=== PATIENT | female | born 1970 | race Caucasian/White ===

== ENCOUNTER 2018-04-14 05:49 | Outpatient (CLI) | payer MEDICAID ==
[~2018-04-14] VITALS: Ht 157.5 cm; Wt 58.3 kg
[~2018-04-14 05:49] MED LIST: AMIT100T2 PO; AMIT50TA3; AMIT50TA3 PO; CLON0.5T3 PO; CYCL10TA9 PO; GABA600T2 PO; GBPN400C PO; HYDR-3714; HYDR1TAB8 OP; NAPR-243 PO; OXYC-272 PO; OXYC-465 PO; OXYC1TAB87 PO; SRTR100T PO
[2018-04-14] MEDS ORDERED: AMIT75TA2 PO (12:36)
[2018-04-14] MEDS ORDERED: ACET-2267 PO (12:36)
[2018-04-14] MEDS ORDERED: RT-ALBUINH IH (12:37)
== END 2018-04-14 12:43 ==
LOC: PREOP 05:49
PROVIDERS: ATTEND Surgery
DX: Z01.818 Encounter for other preprocedural examination (principal); R19.7 Diarrhea, unspecified; Z86.010 Personal history of colon polyps

== ENCOUNTER 2018-04-18 20:23 | Emergency (ER) | payer MEDICAID, OTHER ==
[~2018-04-18] VITALS: Ht 152.4 cm; Wt 53.5 kg
[~2018-04-18 20:23] MED LIST changes: +ACET-2267 PO; +AMIT75TA2 PO; +RT-ALBUINH IH
--- NOTE | 2018-04-18 20:58 | ED EENT ---
History of Present Illness General Stated Complaint: THROAT PAIN/BACK PAIN/FEVER Source: patient Exam Limitations: no limitations History of Present Illness Date Seen by Provider: April 18, 2018 Time Seen by Provider: 20:40 Initial Comments PT ARRIVES VIA POV--SON AND BOTH BEING SEEN IN ER ALSO C/O SORE THROAT, COUGH, CONGESTION FOR 3 DAYS DENIES FEVER HAS HAD NON-PRODUCTIVE COUGH NO CHEST PAIN OR SHORTNESS OF BREATH C/O BILATERAL EAR PAIN CHILD BEGAN HAVING SAME SYMPTOMS TODAY. IS BEING SEEN FOR UNRELATED PROBLEM PT HAS NOT TAKEN ANYTHING FOR SYMPTOMS PT SMOKES 1 PPD LMP 6 MONTHS AGO. NO CONTROL. HISTORY OF OVARIAN CYSTS PCP: [facility] Allergies and Home Medications Allergies Coded Allergies: bupropion (Verified Allergy, Mild, H/A, 04/14/18) prazosin (Verified Allergy, Mild, SYNCOPE, 04/14/18) sertraline (Verified Allergy, Mild, H/A, 04/14/18) Home Medications Acetaminophen 500 Mg Tablet, 1,000 MG PO TID, (Reported) Albuterol Sulfate 1 Puff Puff, 2 PUFF IH Q4H PRN for SHORTNESS OF BREATH, ( Reported) 1 PUFF = 90 MCG Amitriptyline HCl 75 Mg Tablet, 75 MG PO HS, (Reported) Amoxicillin/Potassium Clav 1 Each Tablet, 1 EACH PO BID Prescribed by: NY DUONG on 04/18/182124 Fluticasone Propionate 9.9 Ml Gilbert.susp, 2 SPRAYS NS BID Prescribed by: NY DUONG on 04/18/182124 Gabapentin 600 Mg Tablet, 600 MG PO TID PRN for PAIN, (Reported) Loratadine/Pseudoephedrine 1 Each Tab.er.12h, 1 EACH PO BID Prescribed by: NY DUONG on 04/18/182124 Methylprednisolone 4 Mg Tab.ds.pk, 4 MG PO UD Prescribed by: NY DUONG on 04/18/182124 Patient Home Medication List Home Medication List Reviewed: Yes Review of Systems Constitutional: no symptoms reported Eyes: No Symptoms Reported Ears: See HPI Nose: see HPI, congestion Mouth: no symptoms reported Throat: see HPI, pain; denies hoarse, denies muffled, denies difficulty with fluids Respiratory: see HPI; No short of breath, No wheezing Cardiovascular: no symptoms reported Gastrointestinal: no symptoms reported : No (LMP 6 MONTHS AGO. PT STATES SHE IS GOING THROUGH MENOPAUSE) Musculoskeletal: no symptoms reported Skin: no symptoms reported Neurological: No Symptoms Reported Hematologic/Lymphatic: No Symptoms Reported Immunological/Allergic: no symptoms reported Past Hwfktdq-Jlczkx-Lpcbhq Hx Patient Social History Alcohol Use: Occasionally Uses (VERY HEAVY AT TIMES, HISTORY OF ABUSE/REGULAR USE IN THE PAST) Alcohol Beverage of Choice: Beer Recreational Drug Use: Yes (THC, + IV CRACK COCAINE, OPIOIDS) Drug of Choice: THC, + IV CRACK COCAINE, OPIODS Smoking Status: Current Everyday Smoker (1 PPD) Type Used: Cigarettes (1 PPD) Recent Foreign Travel: No Contact w/Someone Who Travel: No Recent Hopitalizations: No Immunizations Up To Date Tetanus Booster (TDap): Less than 5yrs Date of Influenza Vaccine: Dec 09, 2013 Seasonal Allergies Seasonal Allergies: Yes Past Medical History Surgeries: Yes Appendectomy Respiratory: Yes Asthma Cardiac: Yes Irregular Heartbeat, Palpitations Neurological: Yes Neuropathy Reproductive Disorders: Yes Female Reproductive Disorders: Ovarian Cyst Sexually Transmitted Disease: No HIV/AIDS: No Gastrointestinal: Yes (HEPATITIS C--S/P TREATMENT) Chronic Diarrhea, Hepatitis, Polyps Musculoskeletal: Yes (CARPAL TUNNEL SYMPTOMS) Arthritis, Chronic Back Pain Endocrine: No HEENT: Yes (POOR DENTITION, NASAL FRACTURE) Loss of Vision: Bilateral Hearing Impairment: Denies Cancer: No Psychosocial: Yes (MULTIPLE VISITS FOR PSYCH ISSUES/ALTERED MENTAL STATUS/DRUG AND ALCOHOL RELATED ISSUES ; POLYSUBSTANCE ABUSE) Anxiety, PTSD, Depression Integumentary: No Blood Disorders: No Adverse Reaction/Blood Tranf: No (N/A) Family Medical History Cancer 03 FATHER (LUNG) Family history: Cardiovascular disease 03 MOTHER (X4 STENTS) Physical Exam Vital Signs Vital Signs - First Documented 04/18/18 20:31 Temp 97.3 Pulse 75 Resp 18 B/P (MAP) 119/83 (95) Pulse Ox 96 General Appearance: WD/WN, no apparent distress, other (DOES NOT APPEAR ILL. REEKS OF CIGARETTES) Eyes: bilateral eye normal inspection, bilateral eye PERRL, bilateral eye EOMI Ears: bilateral ear other (TM'S SLIGHTLY INJECTED BILATERALLY) Nose: sinus tenderness (MILD MAXILLARY SINUS TENDERNESS. 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, no motor/sensory deficits, alert, normal mood/affect, oriented x 3 Skin: normal color, warm/dry; No rash Progress/Results/Core Measures Results/Orders Lab Results Laboratory Tests Test 04/18/18 20:56 Range/Units Group A Streptococcus Screen NEGATIVE NEGATIVE My Orders Orders - NY DUONG DO Rapid Strep A Screen (04/18/18 20:52) Amoxicillin/Clavulanate Tablet (Augmenti (04/18/18 21:30) Vital Signs/I&O 04/18/18 20:31 Temp 97.3 Pulse 75 Resp 18 B/P (MAP) 119/83 (95) Pulse Ox 96 Progress Progress Note : Progress Note NO COUGH NOTED DURING ER STAY Departure Impression Primary Impression: Sinusitis Additional Impressions: Pharyngitis Otitis media Disposition: 01 HOME, SELF-CARE Condition: Stable Departure-Patient Inst. Referrals: ABBY BENAVIDES MD (PCP/Family) Primary Care Physician Patient Instructions: Ear Infections (Otitis Media) (DC), Sinusitis, Adult (DC) , Sore Throat, Adult (DC) Add. Discharge Instructions: TYLENOL AND MOTRIN NEEDED FOR PAIN OR FEVER LOTS OF CLEAR LIQUIDS FOLLOW UP WITH [facility] IN 3-4 DAYS IF NO BETTER Scripts Methylprednisolone (Medrol) 4 Mg Tab.ds.pk 4 MG PO UD, #1 PKG Prov: NY DUONG DO 04/18/18 Fluticasone Propionate (Flonase Allergy Relief) 9.9 Ml Gilbert.susp 2 SPRAYS NS BID, #1 SPRAY Prov: NY DUONG DO 04/18/18 Loratadine/Pseudoephedrine (Claritin-D 12 Hour Tablet) 1 Each Tab.er.12h 1 EACH PO BID, #20 TAB Prov: NY DUONG DO 04/18/18 Amoxicillin/Potassium Clav (Augmentin 875-125 Tablet) 1 Each Tablet 1 EACH PO BID for INFECTION, #20 TAB Prov: NY DUONG DO 04/18/18 NY DUONG DO April 18, 2018 20:58
[2018-04-18] MEDS ORDERED: LORA1TAB59 PO (21:25)
[2018-04-18] MEDS ORDERED: FLUT9.9S NS (21:25)
[2018-04-18] MEDS ORDERED: METH4TAB PO (21:25)
[2018-04-18] MEDS ORDERED: AMOX-358 PO (21:25)
[2018-04-18] MEDS ORDERED: AUGMENTIN 875 MG TAB (AMOXICILLIN/CLAVULANATE) PO SCH (21:30)
[2018-04-18 21:52] VITALS: BP 119/83
--- OUTSIDE RECORDS SUMMARY | 2018-04-19 17:05 | XMS REPORT ---
Author Author JEFF Doshi [facility] Address [address] [place] [address] Care Team Providers Care Customer Quality Specialist Name Role Phone JEFF Doshi Unavailable PROBLEMS Type Condition ICD9-CM Code [id number] Code Onset Dates Condition Status SNOMED Code Problem Reactive depression F32.9 Active 77174285 Problem Affective disorder F39 Active 91186421 Problem Anxiety state, unspecified F41.1 Active 321246137 Problem Scoliosis M41.9 Active 161056359 Problem Arthritis M19.90 Active 9681253 Problem Diarrhea, unspecified type R19.7 Active 06504826 Problem Lumbar radiculopathy M54.16 Active 721828156 Problem Post traumatic stress disorder F43.10 Active 62875783 Problem Amphetamine dependence, 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 908589203 Problem Allergy, initial encounter T78.40XA Active 150579346 Problem Depressive disorder F32.9 Active 88734894 Problem 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 Active 003929544 ALLERGIES Substance Reaction Event Type Date Status Zoloft diarrhea Drug Allergy Nov, Active Lomotil syncope Drug Allergy Nov, Active Chantix Unknown Drug Allergy Nov, Active Buspirone 15 Mg Tablet headaches Non Drug Allergy Nov, Active Meloxicam 15 Mg Tablet bloody emesis Non Drug Allergy Nov, Active SOCIAL HISTORY No smoking Hx information available PLAN OF CARE Activity Details Follow Up 4 Weeks Reason: VITAL SIGNS Height 60 in 2016-12-22 Weight 113.0 lbs 2016-12-22 Heart Rate 64 bpm 2016-12-22 Respiratory Rate 18 2016-12-22 BMI 22.07 kg/m2 2016-12-22 Blood pressure systolic 106 mmHg 2016-12-22 Blood pressure diastolic 71 mmHg 2016-12-22 MEDICATIONS Medication Instructions Dosage Frequency Start Date End Date Duration Status Prazosin HCl 1 MG Orally Once a day 1 capsule at bedtime 24h Nov, 30 days Active Neurontin 600 MG 1 Tablet 3 times per day for pain 8h 30 Active amitriptyline 50 mg by oral route Once a day take 1 tablet (100 mg) by oral route once daily at bedtime 24h Oct, Active RESULTS No Results PROCEDURES Procedure Date Ordered Related Diagnosis Body Site Office Visit, Est Pt., Level 4 Dec 22, 2016 IMMUNIZATIONS No Known Immunizations
--- OUTSIDE RECORDS SUMMARY | 2018-04-19 17:05 | XMS REPORT ---
Author Author JEFF Doshi Organization [facility] Address [address] [place] [address] Care Team Providers Care Cco & President Name Role Phone JEFF Doshi Unavailable PROBLEMS Type Condition ICD9-CM Code [id number] Code Onset Dates Condition Status SNOMED Code Problem Reactive depression F32.9 Active 68361806 Problem Affective disorder F39 Active 85857637 Problem Anxiety state, unspecified F41.1 Active 659967224 Problem Scoliosis M41.9 Active 017444038 Problem Arthritis M19.90 Active 9707040 Problem Diarrhea, unspecified type R19.7 Active 74202726 Problem Lumbar radiculopathy M54.16 Active 236153353 Problem Post traumatic stress disorder F43.10 Active 95665600 Problem Amphetamine dependence, 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 331981809 Problem Allergy, initial encounter T78.40XA Active 482951933 Problem Depressive disorder F32.9 Active 58009296 Problem 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 Active 863907631 ALLERGIES No Information SOCIAL HISTORY Never Assessed PLAN OF CARE VITAL SIGNS MEDICATIONS Medication Instructions Dosage Frequency Start Date End Date Duration Status Prazosin HCl 1 MG Orally Once a day 1 capsule at bedtime 24h Nov, 30 days Active RESULTS No Results PROCEDURES No Known procedures IMMUNIZATIONS No Known Immunizations MEDICAL (GENERAL) HISTORY Type Description Date Medical History scoliosis Medical History RA Medical History CA breast Medical History Alcoholism Medical History Cannabis Abuse Medical History Illicit drug use Medical History Anxiety Medical History PTSD Medical History Depression Medical History Hep C Medical History Chronic Back Pain Medical History Arthritis Surgical History appendectomy 1986 Hospitalization History ketoacidosis 2013 Hospitalization History surgeries Hospitalization History childbirth Hospitalization History [facility] Psychosis left AMA 11/16/2016 Hospitalization History [facility] Psychosis approved for transfer to [facility] left AMA 11/17/2016 Hospitalization History inpatient treatment for substance use
--- OUTSIDE RECORDS SUMMARY | 2018-04-19 17:05 | XMS REPORT ---
Author Author HELADIO PEACOCK Organization [employer] Address Unknown Phone Unavailable Care Team Providers Care Bank Officer Name Role Phone HELADIO PEACOCK CP Unavailable Allergies No Known Allergies Problems Problem Type Condition Code Onset Dates Condition Status Problem Reactive depression F32.9 Active Problem Diarrhea, unspecified type R19.7 Active Problem Anxiety state, unspecified F41.1 Active Assessment Anxiety state, unspecified F41.1 Active Assessment Depressive disorder, not elsewhere classified F32.9 Active Problem Scoliosis M41.9 Active Problem Arthritis M19.90 Active Medications No Known Medications Procedures Procedure Coding System Code Date Psychotherapy, patient &/family, 30 minutes, established patient CPT-4 18934 Sep 19, 2016 Results No Known Results Summary Purpose [employer] Submission
--- OUTSIDE RECORDS SUMMARY | 2018-04-19 17:05 | XMS REPORT | Continuity of Care Document ---
Author Author [employer] Organization [facility] Address Unknown Phone Unavailable Care Team Providers Care Unix Manager Name Role Phone [employer] Unavailable Unavailable Problems Medications Allergies, Adverse Reactions, Alerts Immunizations Results Vital Signs Encounters Procedures Plan of Care Social History Assessment and Plan Family History Advance Directives Functional Status
--- OUTSIDE RECORDS SUMMARY | 2018-04-19 17:05 | XMS REPORT ---
Author Author ABBY BENAVIDES [facility] [employer] Address Unknown Phone Unavailable Care Team Providers Care Reproductive Healthcare Assistant Name Role Phone ABBY BENAVIDES CP Unavailable Allergies No Known Allergies Problems Problem Type Condition Code Onset Dates Condition Status Problem Special screening examination, human papillomavirus [HPV] V73.81 Active Problem Scoliosis (and kyphoscoliosis), 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.30 Active Problem Periapical abscess without sinus 522.5 Active Problem Arthritis M19.90 Active Problem Unspecified episodic mood disorder 296.90 Active Problem Generalized anxiety disorder 300.02 Active Problem Posttraumatic stress disorder 309.81 Active Problem Encounter for long-term (current) use of other medications V58.69 Active Problem Scoliosis M41.9 Active Problem Unspecified backache 724.5 Active Problem Unspecified viral hepatitis C without hepatic coma 070.70 Active Problem Anxiety state, unspecified 300.00 Active Problem Unspecified arthropathy, site unspecified 716.90 Active Problem Screening for malignant neoplasm of the cervix V76.2 Active Problem Unspecified breast screening V76.10 Active Problem Nasal bones, closed fracture 802.0 Active Problem Painful respiration 786.52 Active Problem Counseling on substance use and abuse V65.42 Active Problem Excessive or frequent menstruation 626.2 Active Problem Unspecified contraceptive management V25.9 Active Problem Dysmenorrhea 625.3 Active Problem Routine gynecological examination V72.31 Active Problem Screening examination for venereal disease V74.5 Active Medications Medication Code System Code Instructions Start Date End Date Status Dosage Naproxen [facility] [address]-65 500 MG Twice a day Dec 07, 2014 take 1 tablet by Oral route 2 times per day with food take w food Neurontin [facility] [address]-19 600 MG Three times a day Dec 07, 2014 1 Tablet 3 times per day for pain Zoloft [facility] [address]-68 50 mg Orally Once a day Dec 07, 2014 1.5 Tablet by Oral route 1 time per day Results No Known Results Summary Purpose [employer] Submission
--- OUTSIDE RECORDS SUMMARY | 2018-04-19 17:05 | XMS REPORT ---
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 437536195 Problem Allergy, initial encounter T78.40XA Active 940084529 Problem Depressive disorder, not elsewhere classified F32.9 Active 93835732 Problem Posttraumatic stress disorder F43.10 Active 02110414 Problem Depressive disorder F32.9 Active 59528329 Problem 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 Active 939151838 Problem Lumbar radiculopathy M54.16 Active 683237218 Problem Post traumatic stress disorder F43.10 Active 01874161 Problem Scoliosis M41.9 Active 754382782 Problem Diarrhea, unspecified type R19.7 Active 78582736 Problem Reactive depression F32.9 Active 85979391 Problem Arthritis M19.90 Active 9656581 Problem Anxiety state, unspecified F41.1 Active 540052911 ALLERGIES No Information ENCOUNTERS Encounter Location Date Diagnosis [facility] [address] [id number] [address] Feb, [facility] [id number] [place] [address] 81176- 7411 Feb, [facility] [id number] [place] [address] 83659- 6885 Feb, [facility] [id number] [place] [address] 47108- 6958 Jan, [facility] [address] [address] 4078 Jan, Posttraumatic stress disorder F43.10 and Depressive disorder , not elsewhere classified F32.9 [facility] [id number] [place] [address] 98071- 2580 Nov, Dental abscess K04.7 ; Arthritis M19.90 and Depressive disorder, not elsewhere classified F32.9 [facility] [id number] [place] [address] 55211- 7904 18 Oct, 2017 Post traumatic stress disorder F43.10 ; Amphetamine dependence, 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 ; 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 and Depressive disorder F32.9 [facility] [id number] [place] [address] 95343- 0170 04 Oct, 2017 Post traumatic stress disorder F43.10 [facility] IN [facility] [id number] [place] [address] 94566 -3118 30 Sep, 2017 Acute non-recurrent pansinusitis J01.40 [address] 39[address]- 4092 Sep, Scoliosis M41.9 [facility] [address] 91264- 8771 Aug, Posttraumatic stress disorder F43.10 and Depressive disorder , not elsewhere classified F32.9 [facility] [id number] [place] [address] 75538- 0074 Aug, Scoliosis M41.9 [facility] [id number] [place] [address] 42939 -2723 Jul, [facility] [address] 79013- 7843 Jul, Scoliosis M41.9 [facility] [address] 66256- 3131 Jun, Scoliosis M41.9 ; Lumbar radiculopathy M54.16 and Acute nasopharyngitis J00 [facility] [address] 35383- 8635 Jun, Scoliosis M41.9 [address] [id number] [place] [address] 28902- 3793 Jun, Reactive depression F32.9 [address] [id number] [place] [address] 65483- 4068 May, Post traumatic stress disorder F43.10 ; Amphetamine dependence, 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 ; 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 and Depressive disorder F32.9 [place] [id number] [place] [address] 99310- 4414 May, Anxiety state, unspecified F41.1 [place] [id number] [place] [address] 34698- 0933 Apr, [address] [place] [address] 94975- 2683 Apr, Anxiety state, unspecified F41.1 [address] [place] [address] 83158- 9155 March, Arthritis M19.90 ; Scoliosis M41.9 and Allergy, initial encounter T78.40XA [place] [id number] [place] [address] 28310- 7642 March, Anxiety state, unspecified F41.1 [address] [place] [id number] [place] [address] 65662- 5175 Jan, Anxiety state, unspecified F41.1 [place] [id number] [place] [address] 57321- 7435 Dec, Anxiety state, unspecified F41.1 [facility] [id number] [place] [address] 02425 -3381 Dec, Sore throat J02.9 ; Other viral agents as the cause of diseases classified elsewhere B97.89 and Acute upper respiratory infection, unspecified J06.9 [place] [id number] [place] [address] 38376- 4236 Nov, Anxiety state, unspecified F41.1 [address] [place] [id number] [place] [address] 65532- 5194 Nov, Reactive depression F32.9 [address] [address] 55362- 6184 Nov, Affective disorder F39 [facility] [address] 57623- 4720 Oct, [address] [address] 38796- 3798 Oct, Other psychoactive substance use, unspecified with intoxication with delirium F19.921 [address] [place] [address] 79197- 2502 Sep, Upper respiratory tract infection, unspecified type J06.9 and Scoliosis M41.9 [address] [address] 73327- 1907 Aug, Anxiety state, unspecified F41.1 and Depressive disorder, not elsewhere classified F32.9 [address] [place] [address] 56588- 3383 Jul, [address] [address] 72743- 5768 Jun, Scoliosis M41.9 ; Reactive depression F32.9 and Diarrhea, unspecified type R19.7 [place] [id number] [place] [address] 46800- 5950 May, [address] [address] 32586- 4183 Nov, Sinusitis J32.9 ; Scoliosis M41.9 ; Arthritis M19.90 and Nipple lesion N64.9 [facility] [id number] [place] [address] 56484- 5218 Feb, [address] [place] [address] 78528- 7801 Feb, [facility] [place] [facility] [address] [id number] [place] [address]- 2158 Jan, [facility] [place] [facility] [address] [id number] [place] [address]- 2869 Jan, [facility] [place] [facility] [address] [id number] [place] [address]- 5873 Jan, [facility] [place] [facility] [address] [id number] [place] [address]- 0353 Jan, [facility] [place] [facility] [address] [id number] [place] [address]- 0146 Dec, [facility] [place] [facility] [address] [id number] [place] [address]- 0324 Dec, 2014 [facility] [place] [facility] [address] [id number] [place] [address]- 5808 Dec, [facility] [place] [facility] [address] [id number] [address]- 0268 Dec, [facility] [place] [facility] [address] [id number] [place] [address]- 9688 Dec, [facility] [place] [facility] [address] [facility] [id number] [address]- 5179 Dec, [facility] [address] [id number] [id number] Dec, [facility] [place] [facility] [address] [facility] [id number] [address]- 9103 Dec, [facility] [place] [facility] [address] [id number] [address]- 4377 Nov, [facility] [place] [facility] [address] [id number] [place] [address]- 4122 Nov, [facility] [place] [facility] [address] [facility] [id number] [place] 2773 Nov, [facility] [place] [facility] [address] [id number] [place] [address]- 5336 Nov, [facility] [address] [id number] [place] 0633 Nov, [facility] [place] [facility] [address] [id number] [place] [address]- 4867 Nov, [facility] [address] [id number] [place] [address]- 2963 Nov, [facility] [address] [id number] [id number] Nov, [facility] [address] [id number] [place] 6196 Nov, [facility] [place] [facility] [address] [id number] [place] [address]- 3979 Nov, [facility] [address] [id number] [place] 3854 Nov, [facility] [place] [facility] [address] [id number] [place] [address]- 2544 Oct, [facility] [place] [facility] [address] [id number] [place] [address]- 9435 30 Oct, 2014 [facility] [place] [facility] [address] [id number] [place] [address]- 7885 Oct, [facility] [place] [facility] [address] [id number] [place] [address]- 3043 Oct, [facility] [place] [facility] [address] [id number] [place] [address]- 2085 18 Oct, 2014 [facility] [place] [facility] [address] [id number] [place] [address]- 6142 18 Oct, 2014 [facility] [place] [facility] [address] [id number] [place] [address]- 8178 Oct, [facility] [place] [facility] [address] [id number] [place] [address]- 8318 17 Oct, 2014 [facility] [place] [facility] [address] [id number] [place] [address]- 9948 Oct, [facility] [address] [id number] [place] [address]- 0699 Oct, [facility] [address] [id number] [place] [address]- 6366 Oct, [facility] [address] [id number] [place] [address]- 4154 Oct, [facility] [place] [facility] [address] [id number] [place] [address]- 4901 Oct, [facility] [address] [id number] [place] [address]- 0992 Oct, [facility] [address] [id number] [place] [address]- 3298 Sep, [facility] [address] [id number] [place] [address]- 5902 Sep, [facility] [address] [id number] [id number] Sep, [facility] [address] [id number] [place] [address]- 0705 Sep, [facility] [address] [id number] [place] [address]- 4394 Sep, [facility] [address] [id number] [place] [address]- 1531 Sep, [facility] [place] [facility] [address] [id number] [place] [address]- 9078 Sep, [facility] [place] [facility] [address] [id number] [place] [address]- 7853 Sep, [facility] [place] [facility] [address] [id number] [place] [address]- 8556 Sep, [facility] [place] [facility] [address] [id number] [place] [address]- 8486 Sep, [facility] [place] [facility] [address] [id number] [place] [address]- 7032 Sep, [facility] [place] [facility] [address] [id number] [place] [address]- 0358 Aug, [facility] [place] [facility] [address] [id number] [place] [address]- 2585 Aug, [facility] [place] [facility] [address] [id number] [place] [address]- 5113 Aug, [facility] [place] [facility] [address] [id number] [place] [address]- 8030 Aug, [facility] [place] [facility] [address] [id number] [place] [address]- 3683 20 Aug, 2014 [facility] [place] [facility] [address] [id number] [place] [address]- 8310 15 Aug, 2014 [facility] [place] [facility] [address] [id number] [place] [address]- 1227 15 Aug, 2014 [facility] [place] [facility] [address] [id number] [place] [address]- 3255 15 Aug, 2014 [facility] [place] [facility] [address] [id number] [place] [address]- 3440 15 Aug, 2014 [facility] [place] [facility] [address] [id number] [place] [address]- 9181 13 Aug, 2014 [facility] [place] [facility] [address] [id number] [place] [address]- 4909 13 Aug, 2014 [facility] [place] [facility] [address] [id number] [place] [address]- 3725 13 Aug, 2014 [facility] [place] [facility] [address] [id number] [place] [address]- 6733 13 Aug, 2014 [facility] [place] [facility] [address] [id number] [place] [address]- 0959 2014 [facility] [place] [facility] [address] [id number] [place] [address]- 6986 Jul, [facility] [address] [id number] [place] [id number] Jul, [facility] [place] [facility] [address] [id number] [place] [address]- 0946 Jul, [facility] [place] [facility] [address] [id number] [place] [address]- 4223 Jun, [facility] [place] [facility] [address] [id number] [place] [address]- 2739 Jun, [facility] [place] [facility] [address] [id number] [place] [address]- 9128 Jun, [facility] [place] [facility] [address] [id number] [place] [address]- 5332 Jun, [facility] [place] [facility] [address] [id number] [place] [address]- 3438 Jun, [facility] [place] [facility] [address] [id number] [place] [address]- 2622 Jun, [facility] [address] [facility] [id number] [place] [id number] May, [facility] [place] [facility] [address] [id number] [place] [address]- 1587 May, [facility] [place] [facility] [address] [id number] [place] [address]- 7124 May, [facility] [place] [facility] [address] [id number] [place] [address]- 1036 May, [facility] [place] [facility] [address] [id number] [place] [address]- 6140 May, [facility] [place] [facility] [address] [id number] [place] [address]- 6946 May, [facility] [address] [id number] [place] [id number] May, [facility] [place] [facility] [address] [id number] [place] [address]- 3897 May, [facility] [place] [facility] [address] [id number] [place] [address]- 0435 Apr, [facility] [place] [facility] [address] [id number] [place] [address]- 2446 Apr, [facility] [address] [facility] [id number] [place] [id number] Apr, [facility] [place] [facility] [address] [id number] [place] [address]- 6521 Apr, [facility] [place] [facility] [address] [id number] [place] [address]- 0961 Apr, [facility] [place] [facility] [address] [id number] [place] 6605 Apr, [facility] [place] [facility] [address] [facility] [id number] [place] [address]- 2818 Apr, [facility] [place] [facility] [address] [facility] [id number] [place] [address]- 7171 Apr, [facility] [place] [facility] [address] [id number] [place] [address]- 5847 Apr, [facility] [address] [facility] [id number] [id number] March, [facility] [place] [facility] [address] [id number] [place] [address]- 4566 March, [facility] [place] [facility] [address] [id number] [address]- 9726 March, [facility] [place] [facility] [address] [id number] [place] [address]- 7136 March, [facility] [address] [facility] [id number] [place] [id number] March, [facility] [place] [facility] [address] [id number] [place] [address] 2546 March, [facility] [place] [facility] [address] [facility] [id number] [place] [address]- 2866 Feb, [facility] [address] [id number] [place] [address]- 9626 Feb, [facility] [place] [facility] [address] [id number] [place] [address]- 5516 Feb, [facility] [address] [id number] [place] [address]- 3086 Feb, [facility] [place] [facility] [address] [id number] [place] [address]- 6576 Feb, [facility] [address] [id number] [place] [id number] Feb, [facility] [place] [facility] [address] [id number] [place] [address]- 9976 Feb, [facility] [address] [id number] [place] [address]- 7736 Jan, [facility] [place] [facility] [address] [id number] [place] [address]- 0336 Jan, [facility] [place] [facility] [address] [id number] [place] [address]- 2406 Jan, [facility] [place] [facility] [address] [id number] [place] [address]- 9276 Jan, [facility] [place] [facility] [address] [id number] [place] [address]- 2546 Jan, [facility] [place] [facility] [address] [id number] [place] [address]- 2546 Jan, [facility] [address] [id number] [place] [id number] Jan, [facility] [place] [facility] [address] [id number] [place] [address]- 2546 Jan, [facility] [place] [facility] [address] [id number] [place] [address]- 2546 Jan, [facility] [place] [facility] [address] [id number] [place] [address]- 1520 Jan, [facility] [place] [facility] [address] [id number] [place] [address]- 0884 Dec, [facility] [place] [facility] [address] [id number] [place] [address]- 4382 Dec, [facility] [address] [id number] [place] [id number] Dec, [facility] [place] [facility] [address] [id number] [place] [address]- 6804 Dec, [facility] [place] [facility] [address] [id number] [place] [address]- 0623 Dec, [facility] [place] [facility] [address] [id number] [place] [address]- 8609 Dec, [facility] [place] [facility] [address] [id number] [place] [address]- 2778 Dec, [facility] [place] [facility] [address] [id number] [place] [address]- 4367 Dec, [facility] [place] [facility] [address] [id number] [place] [address]- 8074 Dec, [facility] [place] [facility] [address] [id number] [place] [address]- 3937 Dec, [facility] [place] [facility] [address] [id number] [place] [address]- 6710 Nov, [facility] [place] [facility] [address] [id number] [place] [address]- 3839 Nov, [facility] [place] [facility] [address] [id number] [place] [address]- 5025 Nov, [facility] [place] [facility] [address] [id number] [place] [address]- 2692 Nov, [facility] [place] [facility] [address] [id number] [place] [address]- 7475 Nov, [facility] [place] [facility] [address] [id number] [address]- 2996 Nov, [facility] [address] [id number] [address]- 4518 Nov, [facility] [address] [id number] [address]- 6059 Nov, [facility] [address] [id number] [id number] Nov, [facility] [id number] [address]- 6109 Nov, [facility] [address] [address]- 1828 Oct, [facility] [address] [address] Oct, [facility] [id number] [address] Sep, [facility] [id number] [address] Sep, [facility] [id number] [address] Sep, [facility] [id number] [address] Sep, [facility] [id number] [address] Aug, [facility] [id number] [address] Aug, [facility] [id number] [address] Jul, IMMUNIZATIONS No Known Immunizations SOCIAL HISTORY Never Assessed REASON FOR VISIT Gabapentin refill PLAN OF CARE VITAL SIGNS MEDICATIONS Medication Instructions Dosage Frequency Start Date End Date Duration Status Neurontin 600 MG Orally Three times a day 1 tablet 8h 30 days Active RESULTS No Results PROCEDURES No Known procedures INSTRUCTIONS MEDICATIONS ADMINISTERED No Known Medications MEDICAL (GENERAL) HISTORY Type Description Date Medical History scoliosis Medical History RA Medical History CA breast Medical History Alcoholism Medical History Cannabis Abuse Medical History Illicit drug use Medical History Anxiety Medical History PTSD Medical History Depression Medical History Hep C Medical History Chronic Back Pain Medical History Arthritis Surgical History appendectomy 1985 Hospitalization History ketoacidosis 2013 Hospitalization History surgeries Hospitalization History childbirth Hospitalization History [facility] Psychosis left AMA 11/16/2016 Hospitalization History [facility] Psychosis approved for transfer to [place] unit left AMA 11/17/2016 Hospitalization History inpatient treatment for substance use
--- OUTSIDE RECORDS SUMMARY | 2018-04-19 17:05 | XMS REPORT ---
Author ABBY Lema [facility] e[employer] Address Unknown Phone Unavailable Care Team Providers Care Php Developer Name Role Phone ABYB BENAVIDES CP Unavailable Allergies, Adverse Reactions, Alerts Substance Reaction Event Type Chantix Info Not Available Drug Allergy Buspirone 15 Mg Tablet Info Not Available Non Drug Allergy Meloxicam 15 Mg Tablet bloody emesis Non Drug Allergy Problems Problem Type Condition Code Onset Dates Condition Status Assessment Nipple lesion N64.9 Active Assessment Arthritis M19.90 Active Problem Dysmenorrhea 625.3 Active Assessment Scoliosis M41.9 Active Problem Screening examination for venereal disease V74.5 Active Assessment Sinusitis J32.9 Active Problem Special screening examination, human papillomavirus [HPV] V73.81 Active Problem Scoliosis (and kyphoscoliosis), 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.30 Active Problem Periapical abscess without sinus 522.5 Active Problem Arthritis M19.90 Active Problem Generalized anxiety disorder 300.02 Active Problem Unspecified episodic mood disorder 296.90 Active Problem Posttraumatic stress disorder 309.81 Active Problem Scoliosis M41.9 Active Problem Encounter for long-term (current) use of other medications V58.69 Active Problem Unspecified backache 724.5 Active Problem [...] Problem Unspecified contraceptive management V25.9 Active Problem Routine gynecological examination V72.31 Active Medications Medication Code System Code Instructions Start Date End Date Status Dosage Percocet [facility] [address]-82 5-325 mg Nov 15, 2014 take 1 tablet by Oral route as needed every 8 hours PRN Naproxen [facility] [address]-47 500 MG Twice a day Dec 07, 2014 take 1 tablet by Oral route 2 times per day with food take w food amitriptyline NDC 0 100 mg Nov 15, 2014 take 1 tablet (100 mg) by oral route once daily at bedtime Zoloft [facility] [address]-77 50 MG Orally Once a day Dec 07, 2014 1.5 Tablet by Oral route 1 time per day Neurontin [facility] [address]-88 600 MG Three times a day Dec 07, 2014 1 Tablet 3 times per day for pain Amoxicillin [facility] [address]-19 500 MG Orally 3 times a day Dec 24, 2015 Dec 31, 2015 1 Procedures Procedure Coding System Code Date Office Visit, Est Pt., Level 5 CPT-4 72507 Dec 24, 2015 Vital Signs Date/Time: Dec 24, 2015 Temperature 98.8 F Weight 101.7 lbs Height 60 in BMI 19.86 Index Blood Pressure Diastolic 80 mmHg Blood Pressure Systolic 118 mmHg Cardiac Monitoring Heart Rate 88 bpm Results No Known Results Summary Purpose eClinicalWorks Submission
--- OUTSIDE RECORDS SUMMARY | 2018-04-19 17:05 | XMS REPORT ---
Author Author MEGAN PRICE Organization [facility] Address [address] [place] [address] Care Team Providers Care Travel Specialist Name Role Phone MEGAN PRICE Unavailable PROBLEMS Type Condition ICD9-CM Code WVC20-TL Code Onset Dates Condition Status SNOMED Code Problem Reactive depression F32.9 Active 19192542 Problem Affective disorder F39 Active 63320217 Problem Anxiety state, unspecified F41.1 Active 895482065 Problem Scoliosis M41.9 Active 283078300 Problem Arthritis M19.90 Active 7312047 Problem Diarrhea, unspecified type R19.7 Active 07387582 Problem Lumbar radiculopathy M54.16 Active 839908741 Problem Post traumatic stress disorder F43.10 Active 05130537 Problem Amphetamine dependence, 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 265728311 Problem Allergy, initial encounter T78.40XA Active 894126847 Problem Depressive disorder F32.9 Active 94341483 Problem 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 Active 825665363 ALLERGIES Substance Reaction Event Type Date Status Zoloft diarrhea Drug Allergy Dec, Active Lomotil syncope Drug Allergy Dec, Active Chantix Unknown Drug Allergy Dec, Active Buspirone 15 Mg Tablet headaches Non Drug Allergy Dec, Active Meloxicam 15 Mg Tablet bloody emesis Non Drug Allergy Dec, Active SOCIAL HISTORY Never Assessed PLAN OF CARE Activity Details Follow Up prn Reason: VITAL SIGNS Height 60 in 2017-01-13 Weight 113.4 lbs 2017-01-13 Temperature 98.0 degrees Fahrenheit 2017-01-13 Heart Rate 68 bpm 2017-01-13 Respiratory Rate 20 2017-01-13 BMI 22.14 kg/m2 2017-01-13 Blood pressure systolic 110 mmHg 2017-01-13 Blood pressure diastolic 60 mmHg 2017-01-13 MEDICATIONS Unknown Medications RESULTS Name Result Date Reference Range STREP A (IN HOUSE) 2017-01-13 STREP A negative Control + Lot # [id number] Exp date aug 17 PROCEDURES Procedure Date Ordered Result Body Site STREP A ASSAY W/OPTIC Jan 13, 2017 IMMUNIZATIONS No Known Immunizations MEDICAL (GENERAL) HISTORY [...] History childbirth Hospitalization History [facility] left [facility] 11/16/2016 Hospitalization History [facility] approved for transfer to [place] unit left AMA 11/17/2016 Hospitalization History inpatient treatment for substance use
--- OUTSIDE RECORDS SUMMARY | 2018-04-19 17:06 | XMS REPORT ---
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 952175296 Problem Allergy, initial encounter T78.40XA Active 597531328 Problem Depressive disorder, not elsewhere classified F32.9 Active 35551494 Problem Posttraumatic stress disorder F43.10 Active 78156215 Problem Depressive disorder F32.9 Active 87043931 Problem 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 Active 652274257 Problem Lumbar radiculopathy M54.16 Active 099844047 Problem Post traumatic stress disorder F43.10 Active 03448797 Problem Scoliosis M41.9 Active 363278197 Problem Diarrhea, unspecified type R19.7 Active 43055683 Problem Reactive depression F32.9 Active 74630778 Problem Arthritis M19.90 Active 7992318 Problem Anxiety state, unspecified F41.1 Active 859754823 ALLERGIES Substance Reaction Event Type Date Status Zoloft diarrhea Drug Allergy May, Active Lomotil syncope Drug Allergy May, Active Chantix Unknown Drug Allergy May, Active Buspirone 15 Mg Tablet headaches Non Drug Allergy May, Active Meloxicam 15 Mg Tablet bloody emesis Non Drug Allergy May, Active ENCOUNTERS Encounter Location Date Diagnosis [facility] [address] [facility] [id number], [place] [address] Feb, [facility] [address] [facility]NOTE [facility]] [id number], [place] [address] 8[address] Feb, [facility] [address] [facility]NOTE [facility]] [id number], [place] [address] Feb, [facility] [id number] [place] [address] 17421- 5377 Jan, [facility] [id number] [place] [address] 31789- 4820 Jan, Posttraumatic stress disorder F43.10 and Depressive disorder , not elsewhere classified F32.9 [facility] [id number] [place] [address] 54069- 4161 Nov, Dental abscess K04.7 ; Arthritis M19.90 and Depressive disorder, not elsewhere classified F32.9 [facility] [id number] [place] [address] 28154- 6684 Oct, Post traumatic stress disorder F43.10 ; Amphetamine dependence, 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 ; 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 and Depressive disorder F32.9 [facility] [id number] [place] [address] 46098- 5660 Oct, Post traumatic stress disorder F43.10 [facility] [id number] [place] [address] 89013 -7417 Sep, Acute non-recurrent pansinusitis J01.40 [place] [id number] [place] [address] 71124- 9656 Sep, Scoliosis M41.9 [facility] [id number] [place] [address] 28335- 4835 Aug, Posttraumatic stress disorder F43.10 and Depressive disorder , not elsewhere classified F32.9 [facility] [id number] [place] [address] 46495- 3285 Aug, Scoliosis M41.9 [facility] [id number] [place] [address] 92692 -7588 Jul, [facility] [id number] [place] [address] 36189- 1358 Jul, Scoliosis M41.9 [facility] [address] [address]- 7898 Jun, Scoliosis M41.9 ; Lumbar radiculopathy M54.16 and Acute nasopharyngitis J00 [place] [id number] [place] [address] 10101- 4845 Jun, Scoliosis M41.9 [place] [id number] [place] [address] 39518- 5008 Jun, Reactive depression F32.9 [place] [address] [address]- 4355 May, Post traumatic stress disorder F43.10 ; Amphetamine dependence, 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 ; 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 and Depressive disorder F32.9 [place] [id number] [place] [address] 16263- 6154 May, Anxiety state, unspecified F41.1 [place] [id number] [place] [address] 65767- 1766 Apr, [place] [address] 33499- 4186 Apr, Anxiety state, unspecified F41.1 [place] [id number] [place] [address] 01906- 5865 March, Arthritis M19.90 ; Scoliosis M41.9 and Allergy, initial encounter T78.40XA [place] [id number] [place] [address] 12621- 0864 March, Anxiety state, unspecified F41.1 [place] [id number] [place] [address] 45284- 7262 Jan, Anxiety state, unspecified F41.1 [place] [id number] [place] [address] 22771- 8327 Dec, Anxiety state, unspecified F41.1 [facility] [id number] [place] [address] 97211 -1808 Dec, Sore throat J02.9 ; Other viral agents as the cause of diseases classified elsewhere B97.89 and Acute upper respiratory infection, unspecified J06.9 [place] [id number] [place] [address] 07284- 7727 Nov, Anxiety state, unspecified F41.[address] 7[address]10- 0923 Nov, Reactive depression F32.9 [place] [address] 08678- 6725 Nov, Affective disorder F39 [address] 02973- 0835 Oct, [address] 84376- 5726 Oct, Other psychoactive substance use, unspecified with intoxication with delirium F19.921 [place] [address] 64013- 1483 Sep, Upper respiratory tract infection, unspecified type J06.9 and Scoliosis M41.9 [address] [address] [id number] [place] [address] 50693- 3841 Aug, Anxiety state, unspecified F41.1 and Depressive disorder, not elsewhere classified F32.[address] 19889- 6996 Jul, [place] [id number] [place] [address] 02621- 7519 Jun, Scoliosis M41.9 ; Reactive depression F32.9 and Diarrhea, unspecified type R19.[address] [address]43- 1929 May, [address] 31866- 7348 Nov, Sinusitis J32.9 ; Scoliosis M41.9 ; Arthritis M19.90 and Nipple lesion N64.9 [facility] [address] [facility]NOTE [facility]] [id number] [place] [address]- 0326 14 Feb, 2015 [facility] [address] [id number] [address] 1106 13 Feb, 2015 [facility] [address], [place] [address]- 6995 Jan, [facility] [address] [facility]NOTE 3] [id number], [place] [address]- 6911 Jan, [facility] [address] [facility]NOTE 3] [id number], [place] [address]- 9437 Jan, [facility] [address] [id number], [place] [address]- 6541 Jan, [facility] [address], [place] [address]- 5592 Dec, [facility] [address], [place] [address]- 3674 Dec, [facility] [address], [place] [address]- 6097 Dec, [facility] [address]65[address], [place] [address]- 3742 Dec, [facility] [address], [place] [address]- 7911 Dec, [facility] [place] [facility] [address] [id number], [place] [address]- 0588 Dec, [facility] [address] [id number] [address] Dec, [facility] [place] [facility] [address], [place] [address]- 6052 Dec, [facility] [place] [facility] [address] [id number], [place] [address]- 6779 Nov, [facility] [place] [facility] [address] [id number] [place] [address]- 4016 Nov, [facility] [address] [id number] [place] [address]- 9506 Nov, [facility] [address] [id number] [place] [address]- 6126 Nov, [facility] [address] [id number] [place] [address]- 9796 Nov, [facility] [address] [id number] [place] [address]- 5466 Nov, [facility] [address] [id number] [place] [address]- 9036 Nov, [facility] [address] [id number] [place] [id number] Nov, [facility] [address] [id number] [place] [address]- 3184 Nov, [facility] [address] [id number] [place] [address]- 2022 Nov, [facility] [address] [id number] [place] [address]- 0750 Nov, [facility] [address] [id number] [place] [address]- 3847 Oct, [facility] [address] [id number] [place] [address]- 1146 30 Oct, 2014 [facility] [address] [id number] [place] [address]- 0166 24 Oct, 2014 [facility] [address] [id number] [place] [address]- 6566 Oct, [facility] [place] [facility] [address] [id number] [place] [address]- 3576 Oct, [facility] [address] [id number] [place] [address]- 7378 Oct, [facility] [place] [facility] [address] [id number] [place] 6183 17 Oct, 2014 [facility] [place] [facility] [address] [id number] [place] [address]- 0820 Oct, [facility] [place] [facility] [address] [id number] [place] [address]- 7424 Oct, [facility] [place] [facility] [address] [id number] [place] 3720 Oct, [facility] [place] [facility] [address] [id number] [place] 7110 Oct, [facility] [place] [facility] [address] [id number] [place] [address]- 3540 Oct, [facility] [place] [facility] [address] [id number] [place] [address]- 0762 Oct, [facility] [place] [facility] [address] [id number] [place] [address]- 6197 Oct, [facility] [place] [facility] [address] [id number] [place] [address]- 4638 Sep, [facility] [place] [facility] [address] [id number] [place] [address]- 0123 Sep, [facility] [address] [id number] [id number] Sep, [facility] [place] [facility] [address] [id number], [place] [address]- 8546 Sep, [facility] [place] [facility] [address] [id number] [place] [address]- 7468 Sep, [facility] [place] [facility] [address] [id number] [place] [address]- 7249 Sep, [facility] [place] [facility] [address] [id number] [place] [address]- 6919 Sep, [facility] [place] [facility] [address] [id number], [place] [address]- 5672 Sep, [facility] [place] [facility] [address] [id number] [place] [address]- 4260 Sep, [facility] [place] [facility] [address] [id number] [place] 4577 Sep, [facility] [place] [facility] [address] [id number] [place] 8716 Sep, [facility] [place] [facility] [address] [id number] [place] [address]- 0972 Aug, [facility] [place] [facility] [address] [id number] [place] [address]- 8121 Aug, [facility] [place] [facility] [address] [id number] [place] [address]- 0193 Aug, [facility] [place] [facility] [address] [id number] [place] [address]- 9205 Aug, [facility] [place] [facility] [address] [id number], [place] [address]- 4765 20 Aug, 2014 [facility] [place] [facility] [address] [id number], [place] [address]- 9786 15 Aug, 2014 [facility] [place] [facility] [address] [id number], [place] [address]- 1469 15 Aug, 2014 [facility] [place] [facility] [address] [id number], [place] [address]- 4884 15 Aug, 2014 [facility] [place] [facility] [address] [id number], [place] [address]- 6774 15 Aug, 2014 [facility] [place] [facility] [address] [id number] [place] [address]- 4523 13 Aug, 2014 [facility] [place] [facility] [address] [id number], [place] [address]- 8163 13 Aug, 2014 [facility] [place] [facility] [address] [id number], [place] [address]- 5156 13 Aug, 2014 [facility] [place] [facility] [address] [facility]] [id number], [place] [address]- 1959 Aug, [facility] [place] [facility] [address] [id number] [place] [address]- 9257 Jul, [facility] [place] [facility] [address] [facility]] [id number], [place] [address]- 8294 Jul, [facility] [address] [facility] [id number] [id number] Jul, [facility] [place] [facility] [address] [facility]] [id number] [place] [address]- 2139 Jul, [facility] [place] [facility] [address] [facility]] [id number] [place] [address]- 5952 Jun, [facility] [place] [facility] [address] [facility]] [id number] [place] [address]- 6534 Jun, [facility] [place] [facility] [address] [facility]] [id number], [place] [address]- 9544 Jun, [facility] [place] [facility] [address] [facility]] [id number] [place] [address]- 5687 Jun, [facility] [place] [facility] [address] [facility]] [id number] [place] [address]- 5700 Jun, [facility] [place] [facility] [address] [facility]] [id number], [place] [address]- 4741 Jun, [facility] [address] [facility] [id number][place] [id number] May, [facility] [place] [facility] [address] [id number], [place] [address]- 7172 May, [facility] [place] [facility] [address] [id number] [place] [address]- 4575 May, [facility] [place] [facility] [address] [facility]] [id number], [place] [address]- 0567 May, [facility] [place] [facility] [address] [facility]] [id number]- 5489 May, [facility] [place] [facility] [address] [id number] [place] [address]- 3615 May, [facility] [address] [id number] [place] [id number] May, [facility] [place] [facility] [address] [id number] [place] 8676 May, [facility] [place] [facility] [address] [id number] [place] [address]- 5176 Apr, [facility] [place] [facility] [address] [id number] [place] [address]- 8141 Apr, [facility] [address] [facility] [id number] [address] Apr, [facility] [place] [facility] [address] [id number] [place] [address]- 9036 Apr, [facility] [place] [facility] [address] [facility]] [id number] [place] [address]- 1570 Apr, [facility] [place] [facility] [address] [facility]] [id number] [place] [address]- 5065 Apr, [facility] [place] [facility] [address] [facility]] [id number] [place] [address]- 1595 Apr, [facility] [place] [facility] [address] [facility]] [id number] [place] [address]- 8068 Apr, [facility] [place] [facility] [address] [id number], [place] [address]- 6210 Apr, [facility] [address] [facility] [id number][place] [id number] March, [facility] [place] [facility] [address] [id number] [place] [address]- 4531 March, [facility] [place] [facility] [address] [facility]] [id number] [place] 4723 March, [facility] [place] [facility] [address] [id number] [place] 9892 March, [facility] [address] [id number] [id number] March, [facility] [place] [facility] [address] [id number] [place] [address]- 2546 March, [facility] [place] [facility] [address] [id number] [place] [address]- 7376 Feb, [facility] [place] [facility] [address] [id number] [place] [address]- 2456 Feb, [facility] [place] [facility] [address] [id number] [place] [address]- 1896 Feb, [facility] [place] [facility] [address] [id number] [place] [address]- 8156 Feb, [facility] [place] [facility] [address] [id number] [place] [address]- 9096 Feb, [facility] [address] [facility] [id number] [id number] Feb, [facility] [place] [facility] [address] [id number] [place] [address]- 1046 Feb, [facility] [place] [facility] [address] [id number] [place] [address]- 6266 Jan, [facility] [place] [facility] [address] [id number] [place] [address]- 9166 Jan, [facility] [place] [facility] [address] [id number], [place] [address] 2546 Jan, [facility] [place] [facility] [address] [id number], [place] [address]- 2546 Jan, [facility] [place] [facility] [address] [id number] [place] [address]- 2546 Jan, [facility] [place] [facility] [address] [id number] [place] [address]- 2546 Jan, [facility] [address] [id number][place] [id number] Jan, [facility] [place] [facility] [address] [id number] [place] [address]- 6641 Jan, [facility] [place] [facility] [address] [id number] [place] [address]- 2353 Jan, [facility] [place] [facility] [address] [facility] [id number] [place] [address]- 6909 Jan, [facility] [place] [facility] [address] [facility]] [id number] [place] [address]- 6079 Dec, [facility] [place] [facility] [address] [facility] [id number] [place] [address]- 5034 Dec, [facility] [address] [id number][place] [id number] Dec, [facility] [place] [facility] [id number] [place] [address]- 0388 Dec, [facility] [place] [facility] [id number] [place] [address]- 0166 Dec, [facility] [place] [facility] [id number] [place] [address]- 7556 Dec, [facility] [place] [facility] [address] [id number] [place] [address]- 4594 Dec, [facility] [place] [facility] [address] [id number] [place] [address]- 8328 Dec, [facility] [place] [facility] [address] [id number] [place] [address]- 7806 Dec, [facility] [place] [facility] [address] [facility]] [id number] [address] Dec, [facility] [place] [facility] [address] [id number] [place] [address] Nov, [facility] [place] [facility] [address] [facility][NOTE 3] [id number] [place] [address] Nov, [facility] [place] [facility] [address] [facility][NOTE 3] [id number] [place] [address] Nov, [facility] [place] [facility] [address] [id number] [place] [address] Nov, [facility] [address] [id number] [place] [address] Nov, [facility] [address] [id number] [place] [address] Nov, [facility] [address] [id number] [place] [address] Nov, [facility] [address] [id number] [place] [address] Nov, [facility] [address] [id number] [place] [id number] Nov, [facility] [address] [id number] [place] [address] Nov, [facility] [address] [id number] [place] [address] Oct, [facility] [address] [id number] [place] [address] Oct, [facility] [address] [id number] [place] [address] Sep, [facility] [address] [id number] [place] [address] Sep, [facility] [place] [facility] [address] [id number] [place] [address] Sep, [facility] [place] [facility] [address] [id number] [place] [address] Sep, [facility] [place] [facility] [address] [id number] [place] [id number] Aug, [facility] [place] [facility] [address] [id number] [place] [id number] Aug, [facility] [place] [facility] [address] [id number] [place] [address] Jul, IMMUNIZATIONS No Known Immunizations SOCIAL HISTORY Never Assessed REASON FOR VISIT intake - Be [employer] PLAN OF CARE Activity Details Follow Up 4 Weeks Reason: f/u VITAL SIGNS Height 60 in 2017-06-19 Weight 113.1 lbs 2017-06-19 Heart Rate 88 bpm 2017-06-19 Respiratory Rate 18 2017-06-19 BMI 22.09 kg/m2 2017-06-19 Blood pressure systolic 111 mmHg 2017-06-19 Blood pressure diastolic 77 mmHg 2017-06-19 MEDICATIONS Medication Instructions Dosage Frequency Start Date End Date Duration Status Neurontin 600 MG 1 Tablet 3 times per day for pain 8h 30 Active HydrOXYzine HCl 50 mg Orally twice a day as needed for high anxiety 1/2 to 1 tablet May, 30 days Active Amitriptyline HCl 75 MG Orally at bedtime 1 tablet May, 30 day(s) Active Prazosin HCl 2 MG Orally at bedtime 1 capsule May, 30 day(s) Active RESULTS No Results PROCEDURES No Known [...] History [facility] approved for transfer to [facility] left AMA 11/17/2016 Hospitalization History inpatient treatment for substance use
--- OUTSIDE RECORDS SUMMARY | 2018-04-19 17:06 | XMS REPORT ---
Author Author HELADIO PEACOCK Organization [facility] Address [address] [place] [address] Care Team Providers Care Staff Counsel Name Role Phone HELADIO PEACOCK Unavailable PROBLEMS Type Condition ICD9-CM Code GOR35-PW Code Onset Dates Condition Status SNOMED Code Problem Diarrhea, unspecified type R19.7 Active 51980271 Problem Anxiety state, unspecified F41.1 Active 959491449 Problem Reactive depression F32.9 Active 47954675 Problem Arthritis M19.90 Active 3969664 Problem Scoliosis M41.9 Active 952538685 Problem Post traumatic stress disorder F43.10 Active 44066023 Problem 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 Active 129392786 Problem Allergy, initial encounter T78.40XA Active 291998472 Problem Affective disorder F39 Active 95196167 Problem Depressive disorder F32.9 Active 53030706 Problem Amphetamine dependence, 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
--- OUTSIDE RECORDS SUMMARY | 2018-04-19 17:06 | XMS REPORT ---
Author Author HELADIO PEACOCK Organization [facility] Address [address] [place] [address] Care Team Providers Care Food Service Technician Name Role Phone HELADIO PEACOCK Unavailable PROBLEMS Type Condition ICD9-CM Code COS29-CY Code Onset Dates Condition Status SNOMED Code Problem Diarrhea, unspecified type R19.7 Active 05530377 Problem Anxiety state, unspecified F41.1 Active 741145671 Problem Reactive depression F32.9 Active 90830872 Problem Arthritis M19.90 Active 1392945 Problem Scoliosis M41.9 Active 498197232 Problem Post traumatic stress disorder F43.10 Active 11830516 Problem 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 Active 209864203 Problem Allergy, initial encounter T78.40XA Active 353161150 Problem Affective disorder F39 Active 56220206 Problem Depressive disorder F32.9 Active 24406193 Problem Amphetamine dependence, 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
--- OUTSIDE RECORDS SUMMARY | 2018-04-19 17:06 | XMS REPORT ---
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 679652527 Problem Allergy, initial encounter T78.40XA Active 211708522 Problem Depressive disorder, not elsewhere classified F32.9 Active 52818206 Problem Posttraumatic stress disorder F43.10 Active 96133556 Problem Depressive disorder F32.9 Active 70333644 Problem 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 Active 123675516 Problem Lumbar radiculopathy M54.16 Active 618978711 Problem Post traumatic stress disorder F43.10 Active 81001509 Problem Scoliosis M41.9 Active 075972471 Problem Diarrhea, unspecified type R19.7 Active 10687841 Problem Reactive depression F32.9 Active 68386297 Problem Arthritis M19.90 Active 5320626 Problem Anxiety state, unspecified F41.1 Active 879452150 ALLERGIES No Information ENCOUNTERS Encounter Location Date Diagnosis [place] [id number] [place] [address] 97657- 2280 Feb, [facility] [id number] [place] [address] 93600- 1737 Jan, [facility] [id number] [place] [address] 40019- 3763 05 Jan, 2018 Posttraumatic stress disorder F43.10 and Depressive disorder , not elsewhere classified F32.9 [facility] [address] [place] [address] 76132- 6576 Nov, Dental abscess K04.7 ; Arthritis M19.90 and Depressive disorder, not elsewhere classified F32.9 [facility] [id number] [place] [address] 22759- 3602 18 Oct, 2017 Post traumatic stress disorder F43.10 ; Amphetamine dependence, 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 ; 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 and Depressive disorder F32.9 [facility] [id number] [place] [address] 93740- 1492 04 Oct, 2017 Post traumatic stress disorder F43.10 [facility] [address] [address] 30 Sep, 2017 Acute non-recurrent pansinusitis J01.40 [facility] [address] 36242- 3040 10 Sep, 2017 Scoliosis M41.9 [facility] [address] 98078- 3382 18 Aug, 2017 Posttraumatic stress disorder F43.10 and Depressive disorder , not elsewhere classified F32.9 [facility] [address] 13366- 2312 Aug, Scoliosis M41.9 [facility] [address] 83[address] -9789 Jul, [facility] [id number] [place] [address] 91215- 6696 Jul, Scoliosis M41.9 [facility] [address] 31164- 1208 Jun, Scoliosis M41.9 ; Lumbar radiculopathy M54.16 and Acute nasopharyngitis J00 [facility] [id number] [place] [address] 54006- 3207 Jun, Scoliosis M41.9 [facility] [id number] [place] [address] 61232- 8744 Jun, Reactive depression F32.9 [facility] [address] 74208- 5985 May, Post traumatic stress disorder F43.10 ; Amphetamine dependence, 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 ; 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 and Depressive disorder F32.9 [place] [id number] [place] [address] 10530- 0733 May, Anxiety state, unspecified F41.1 [place] [address] [address] [id number] [place] [address] 52854- 6137 Apr, [place] [address] 66280- 3869 Apr, Anxiety state, unspecified F41.1 [place] [address] 82540- 5629 March, Arthritis M19.90 ; Scoliosis M41.9 and Allergy, initial encounter T78.40XA [place] [address] 43113- 6477 March, Anxiety state, unspecified F41.1 [place] [address] [id number] [place] [address] 71797- 1243 Jan, Anxiety state, unspecified F41.1 [place] [address] [id number] [place] [address] 96840- 4916 Dec, Anxiety state, unspecified F41.1 [facility] [id number] [place] [address] 54241 -5937 Dec, Sore throat J02.9 ; Other viral agents as the cause of diseases classified elsewhere B97.89 and Acute upper respiratory infection, unspecified J06.9 [place] [id number] [place] [address] 68410- 3507 Nov, Anxiety state, unspecified F41.1 [place] [address] [address] [id number] [place] [address] 07319- 0192 Nov, Reactive depression F32.9 [place] [address] 59349- 1954 Nov, Affective disorder F39 [facility] [id number] [place] [address] 45053- 9184 Oct, [place] [address] [address] [id number] [place] [address] 80255- 9582 Oct, Other psychoactive substance use, unspecified with intoxication with delirium F19.921 [place] [address] 49971- 4482 Sep, Upper respiratory tract infection, unspecified type J06.9 and Scoliosis M41.9 [place] [address] [address] [id number] [place] [address] 44344- 1923 Aug, Anxiety state, unspecified F41.1 and Depressive disorder, not elsewhere classified F32.9 [place] [address] [place] [address] [id number] [place] [address] 17591- 2773 Jul, [place] [address] [place] [address] [id number] [place] [address] 89391- 1790 Jun, Scoliosis M41.9 ; Reactive depression F32.9 and Diarrhea, unspecified type R19.7 [place] [address] [place] [address] [id number] [place] [address] 41257- 3339 May, [place] [address] [place] [address] [id number] [place] [address] 23384- 8608 Nov, Sinusitis J32.9 ; Scoliosis M41.9 ; Arthritis M19.90 and Nipple lesion N64.9 [place] [address] [place] [id number] [place] [address] 54934- 8867 Feb, [facility] [address] 60401- 7447 Feb, [facility] [address] [id number] [place] [address] 94690- 7774 16 Jan, 2015 [place] [address] 48699- 5784 Jan, [facility] [place] [facility] [address] [id number] [place] [address]- 4130 Jan, [facility] [place] [facility] [address] [id number] [place] [address]- 5804 Jan, [facility] [place] [facility] [address] [id number] [place] [address]- 7807 Dec, 2014 [facility] [place] [facility] [address] [id number] [place] [address]- 1715 Dec, 2014 [facility] [place] [facility] [address] [id number] [place] [address]- 2834 Dec, [facility] [place] [facility] [address] [id number] [place] [address]- 1958 Dec, 2014 [facility] [place] [facility] [address] [id number] [place] [address]- 7147 Dec, 2014 [facility] [place] [facility] [address] [id number], [place] [address]- 5014 Dec, [facility] [address] [id number] [address] Dec, [facility] [place] [facility] [address] [id number], [place] [address]- 9001 Dec, [facility] [place] [facility] [address] [id number], [place] [address]- 7174 Nov, [facility] [place] [facility] [address] [id number], [place] [address]- 8811 Nov, [facility] [place] [facility] [address] [id number], [place] [address]- 8092 Nov, [facility] [place] [facility] [address] [id number], [place] [address]- 4567 Nov, [facility] [place] [facility] [address] [id number], [place] [address]- 7267 Nov, [facility] [place] [facility] [address] [id number] [place] [address]- 2436 Nov, [facility] [address] [id number] [place] [address]- 1464 Nov, [facility] [address] [id number][place] [address] Nov, [facility] [address] [facility] [id number] [place] [address]- 2170 Nov, [facility] [address] [id number] [place] [address]- 4743 Nov, [facility] [address] [id number] [place] [address]- 8586 Nov, [facility] [address] [id number] [place] [address]- 5145 Oct, [facility] [address] [id number] [place] [address]- 8351 30 Oct, 2014 [facility] [address] [id number] [place] [address]- 2758 24 Oct, 2014 [facility] [address] [id number] [place] [address]- 8401 22 Oct, 2014 [facility] [address] [id number] [place] [address]- 5543 18 Oct, 2014 [facility] [address] [id number] [place] [address]- 7066 18 Oct, 2014 [facility] [place] [facility] [address] [id number] [place] [address]- 0422 17 Oct, 2014 [facility] [place] [facility] [address] [id number] [place] [address]- 0801 17 Oct, 2014 [facility] [place] [facility] [address] [id number] [place] 6155 16 Oct, 2014 [facility] [place] [facility] [address] [id number] [place] 0803 16 Oct, 2014 [facility] [place] [facility] [address] [id number] [place] [address]- 3477 Oct, [facility] [address] [id number] [place] [address]- 9985 Oct, [facility] [place] [facility] [address] [id number] [place] [address]- 6868 Oct, [facility] [address] [id number] [place] [address]- 9987 Oct, [facility] [address] [id number] [place] [address]- 6232 Sep, [facility] [address] [id number] [place] [address]- 7322 Sep, [facility] [address] [id number] [place] [id number] Sep, [facility] [address] [id number] [place] [address]- 1973 Sep, [facility] [address] [id number] [place] [address]- 8838 Sep, [facility] [place] [facility] [address] [id number] [place] [address]- 1744 Sep, [facility] [address] [id number] [place] 5688 Sep, [facility] [place] [facility] [address] [id number] [place] [address]- 2102 Sep, [facility] [place] [facility] [address] [id number], [place] [address]- 7066 Sep, [facility] [place] [facility] [address] [id number] [place] [address]- 5808 Sep, [facility] [place] [facility] [address] [id number] [place] [address]- 0616 Sep, [facility] [place] [facility] [address] [id number] [place] [address]- 4174 Aug, [facility] [place] [facility] [address] [id number] [place] [address]- 4495 Aug, [facility] [place] [facility] [address] [id number] [place] [address]- 1732 Aug, [facility] [address] [id number] [place] [address]- 3309 Aug, [facility] [place] [facility] [address] [id number] [place] [address]- 8730 Aug, [facility] [address] [id number] [place] [address]- 3271 15 Aug, 2014 [facility] [address] [id number] [place] [address]- 8343 15 Aug, 2014 [facility] [address] [id number] [place] [address]- 4606 15 Aug, 2014 [facility] [address] [id number] [place] [address]- 6398 Aug, [facility] [address] [id number] [place] [address]- 7251 Aug, [facility] [address] [id number] [place] [address]- 0013 Aug, [facility] [address] [id number] [place] [address]- 4172 Aug, [facility] [address] [id number], [place] [address]- 4302 Aug, [facility] [address] [id number] [place] [address]- 2685 2014 [facility] [address] [id number] [place] [address]- 5887 [address] [facility] [address] [id number] [id number] Jul, [facility] [address] [id number] [place] [address]- 1118 Jul, [facility] [place] [facility] [address] [id number] [place] [address]- 6681 Jun, [facility] [place] [facility] [address] [id number] [place] [address]- 1640 Jun, [facility] [place] [facility] [address] [id number] [place] [address]- 8671 Jun, [facility] [place] [facility] [address] [id number] [place] [address]- 3983 Jun, [facility] [place] [facility] [address] [id number] [place] 6285 Jun, [facility] [place] [facility] [address] [id number] [place] [address]- 6959 Jun, [facility] [address] [facility] [id number] [place] [address] May, [facility] [place] [facility] [address] [id number] [place] [address]- 7444 May, [facility] [place] [facility] [address] [id number] [place] [address]- 7324 May, [facility] [place] [facility] [address] [id number] [place] [address]- 4972 May, [facility] [place] [facility] [address] [id number] [place] [address]- 7113 May, [facility] [place] [facility] [address] [id number] [place] [address]- 2042 May, [facility] [address] [facility] [id number] [place] [id number] May, [facility] [place] [facility] [address] [id number] [place] [address]- 5753 May, [facility] [place] [facility] [address] [id number] [place] [address]- 2988 Apr, [facility] [place] [facility] [address] [id number] [place] [address]- 8927 Apr, [facility] [address] [id number] [place] [address] Apr, [facility] [place] [facility] [address] [id number] [place] [address]- 1286 Apr, [facility] [place] [facility] [address] [id number] [place] [address]- 2896 Apr, [facility] [place] [facility] [address] [id number] [place] [address]- 6609 Apr, [facility] [place] [facility] [address] [id number] [place] [address]- 6120 Apr, [facility] [place] [facility] [address] [id number] [place] [address]- 9396 Apr, [facility] [place] [facility] [address] [id number] [place] [address]- 0036 Apr, [facility] [address] [id number] [place] [address] March, [facility] [place] [facility] [address] [id number] [place] [address]- 0865 March, [facility] [place] [facility] [address] [id number] [place] [address]- 8036 March, [facility] [place] [facility] [address] [id number] [place] [address]- 7976 March, [facility] [address] [id number][place] [id number] March, [facility] [place] [facility] [address] [id number] [place] [address]- 6976 March, [facility] [place] [facility] [address] [id number] [place] [address]- 6006 Feb, [facility] [place] [facility] [address] [id number] [place] [address]- 5356 Feb, [facility] [place] [facility] [address] [id number] [place] [address]- 3606 Feb, [facility] [place] [facility] [address] [id number] [place] [address]- 3406 Feb, [facility] [place] [facility] [address] [id number] [place] [address]- 8656 Feb, [facility] [address] [id number] [place] [address] Feb, [facility] [place] [facility] [address] [id number] [place] [address] 2546 Feb, [facility] [place] [facility] [address] [id number] [place] [address]- 0984 Jan, [facility] [place] [facility] [address] [id number] [place] [address]- 5336 Jan, [facility] [place] [facility] [address] [id number] [place] [address]- 8046 Jan, [facility] [place] [facility] [address] [id number] [place] [address]- 8206 Jan, [facility] [place] [facility] [address] [id number] [place] [address]- 9126 Jan, [facility] [place] [facility] [address] [id number] [place] [address]- 4916 Jan, [facility] [address] [facility] [id number] [place] [address] Jan, [facility] [place] [facility] [address] [id number] [place] [address]- 5836 Jan, [facility] [place] [facility] [address] [id number] [place] [address]- 2546 Jan, [facility] [place] [facility] [address] [id number] [place] [address]- 3466 Jan, [facility] [place] [facility] [address] [id number] [place] [address]- 2546 Dec, [facility] [place] [facility] [address] [id number] [place] [address]- 1324 Dec, [facility] [address] [id number] [place] [address] Dec, [facility] [address] [facility] [id number] [place] [address]- 7440 Dec, [facility] [address] [facility] [id number] [place] [address]- 6557 Dec, [facility] [place] [facility] [address] [id number] [place] [address]- 0890 Dec, [facility] [place] [facility] [address] [id number] [place] [address]- 9521 Dec, [facility] [place] [facility] [address] [id number] [place] [address]- 5473 Dec, [facility] [address] [id number] [place] [address]- 5769 Dec, [facility] [place] [facility] [address] [id number] [place] [address]- 1169 Dec, [facility] [address] [id number] [place] [address]- 0321 Nov, [facility] [place] [facility] [address] [id number] [place] [address]- 0856 Nov, [facility] [place] [facility] [address] [id number] [place] [address]- 8993 Nov, [facility] [place] [facility] [address] [id number] [place] [address]- 7356 Nov, [facility] [place] [facility] [address] [id number] [place] [address]- 5907 Nov, [facility] [place] [facility] [address] [id number] [place] [address]- 6908 Nov, [facility] [place] [facility] [address] [id number] [place] [address]- 2157 Nov, [facility] [place] [facility] [address] [id number], [place] [address]- 5397 Nov, [facility] [address] [facility] [id number][place] [id number] Nov, [facility] [address]00565[address], [place] [address]- 6234 Nov, [facility] [address] [id number], [place] [address]- 1939 Oct, [facility] [address] [id number], [place] [address] Oct, [facility] [id number], [place] [address] Sep, [facility] [id number], [place] [address] Sep, [facility] [id number], [place] [address] Sep, [facility] [id number], [place] [address] Sep, [facility] [id number], [place] [address] Aug, [facility] [id number], [place] [address] Aug, [facility] [id number], [place] [address] Jul, IMMUNIZATIONS No Known Immunizations SOCIAL HISTORY Never Assessed REASON FOR VISIT PLAN OF CARE VITAL SIGNS MEDICATIONS Medication Instructions Dosage Frequency Start Date End Date Duration Status Amoxicillin 500 MG Orally every 12 hrs 1 capsule 12h Jul, Aug, 10 day(s) Active RESULTS No Results PROCEDURES No [...] History childbirth Hospitalization History [facility]/2016 Hospitalization History [facility] transfer to [facility] [place] 11/17/2016 Hospitalization History inpatient treatment for substance use
--- OUTSIDE RECORDS SUMMARY | 2018-04-19 17:07 | XMS REPORT ---
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 198171985 Problem Allergy, initial encounter T78.40XA Active 705194472 Problem Depressive disorder, not elsewhere classified F32.9 Active 73630122 Problem Posttraumatic stress disorder F43.10 Active 75532061 Problem Depressive disorder F32.9 Active 09702139 Problem 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 Active 040872556 Problem Lumbar radiculopathy M54.16 Active 214829166 Problem Post traumatic stress disorder F43.10 Active 76492760 Problem Scoliosis M41.9 Active 076017722 Problem Diarrhea, unspecified type R19.7 Active 30046163 Problem Reactive depression F32.9 Active 28260338 Problem Arthritis M19.90 Active 8432082 Problem Anxiety state, unspecified F41.1 Active 253312770 ALLERGIES No Information ENCOUNTERS Encounter Location Date Diagnosis [facility] [address] [id number] [address] Feb, [facility] [id number] [place] [address] 95241- 0537 Feb, [facility] [id number] [place] [address] 35805- 5920 Feb, [facility] [id number] [place] [address] 32072- 0173 Jan, [facility] [address], [place] [address] 1002 Jan, Posttraumatic stress disorder F43.10 and Depressive disorder , not elsewhere classified F32.9 [facility] [id number] [place] [address] 80770- 0765 Nov, Dental abscess K04.7 ; Arthritis M19.90 and Depressive disorder, not elsewhere classified F32.9 [facility] [id number] [place] [address] 15277- 6935 18 Oct, 2017 Post traumatic stress disorder F43.10 ; Amphetamine dependence, 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 [id number] [place] [address] 68581 -3190 30 Sep, 2017 Acute non-recurrent pansinusitis J01.40 [place] [address] [address]- 2029 Sep, Scoliosis M41.9 [facility] [address] [address]75- 5305 Aug, Posttraumatic stress disorder F43.10 and Depressive disorder , not elsewhere classified F32.9 [facility] [id number] [place] [address] 45902- 2030 Aug, Scoliosis M41.[address] [facility]ALK IN [facility] [id number] [place] [address] 46774 -2191 Jul, [facility] [address] 76727- 9544 Jul, Scoliosis M41.9 [facility] [address] 47109- 6563 Jun, Scoliosis M41.9 ; Lumbar radiculopathy M54.16 and Acute nasopharyngitis J00 [facility] [address] 04713- 7952 Jun, Scoliosis M41.9 [place] [id number] [place] [address] 78013- 3988 Jun, Reactive depression F32.9 [place] [id number] [place] [address] 58898- 9957 May, Post traumatic stress disorder F43.10 ; Amphetamine dependence, 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 ; 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 and Depressive disorder F32.9 [place] [id number] [place] [address] 65310- 5556 May, Anxiety state, unspecified F41.1 [place] [id number] [place] [address] 43911- 0177 Apr, [place] [address] 29326- 9169 Apr, Anxiety state, unspecified F41.1 [place] [address] 53258- 7135 March, Arthritis M19.90 ; Scoliosis M41.9 and Allergy, initial encounter T78.40XA [place] [id number] [place] [address] 00904- 9752 March, Anxiety state, unspecified F41.1 [place] [id number] [place] [address] 95178- 2428 Jan, Anxiety state, unspecified F41.1 [place] [id number] [place] [address] 16422- 4343 Dec, Anxiety state, unspecified F41.1 [facility] [id number] [place] [address] 08231 -8927 Dec, Sore throat J02.9 ; Other viral agents as the cause of diseases classified elsewhere B97.89 and Acute upper respiratory infection, unspecified J06.9 [place] [id number] [place] [address] 51142- 0504 Nov, Anxiety state, unspecified F41.1 [place] [id number] [place] [address] 42471- 2709 Nov, Reactive depression F32.9 [place] [address] 79987- 5768 Nov, Affective disorder F39 [facility] [address] 51934- 0891 Oct, [place] [address] 19985- 3924 Oct, Other psychoactive substance use, unspecified with intoxication with delirium F19.921 [place] [address] 82614- 8543 Sep, Upper respiratory tract infection, unspecified type J06.9 and Scoliosis M41.9 [place] [address] 49899- 5250 Aug, Anxiety state, unspecified F41.1 and Depressive disorder, not elsewhere classified F32.9 [place] [address] 02690- 1417 Jul, [place] [address] 13514- 7530 Jun, Scoliosis M41.9 ; Reactive depression F32.9 and Diarrhea, unspecified type R19.7 [place] [id number] [place] [address] 37165- 0723 May, [place] [address] 91897- 9147 Nov, Sinusitis J32.9 ; Scoliosis M41.9 ; Arthritis M19.90 and Nipple lesion N64.9 [facility] [id number] [place] [address] 39460- 0478 Feb, [place] [address] 61129- 5526 Feb, [facility] [place] [facility] [address] [id number] [place] [address]- 6149 Jan, [facility] [place] [facility] [address] [id number] [place] [address]- 7878 Jan, [facility] [place] [facility] [address] [id number] [place] [address]- 6111 Jan, [facility] [place] [facility] [address] [id number] [place] [address]- 0322 Jan, [facility] [place] [facility] [address] [id number] [place] [address]- 7567 Dec, [facility] [place] [facility] [address] [id number] [place] [address]- 6017 Dec, 2014 [facility] [place] [facility] [address] [id number] [place] [address]- 8367 Dec, [facility] [place] [facility] [address] [id number] [address]- 3352 Dec, [facility] [place] [facility] [address] [id number] [place] [address]- 3552 Dec, [facility] [place] [facility] [address] [facility] [id number], [place] [address]- 1237 Dec, [facility] [address] [id number] [address] Dec, [facility] [place] [facility] [address] [facility] [id number], [place] [address]- 9105 Dec, [facility] [place] [facility] [address] [id number], [place] [address]- 2485 Nov, [facility] [place] [facility] [address] [id number], [place] [address]- 4973 Nov, [facility] [place] [facility] [address] [facility] [id number] 9488 Nov, [facility] [place] [facility] [address] [id number] [place] [address]- 0882 Nov, [facility] [address] [id number] [place] 2111 Nov, [facility] [place] [facility] [address] [id number] [place] [address]- 2656 Nov, [facility] [address] [id number] [place] [address]- 1250 Nov, [facility] [address] [id number][place] [id number] Nov, [facility] [address] [id number] [place] 2456 Nov, [facility] [place] [facility] [address] [id number] [place] [address]- 2786 Nov, [facility] [address] [id number] [place] 6761 Nov, [facility] [place] [facility] [address] [id number] [place] [address]- 4451 Oct, [facility] [place] [facility] [address] [id number] [place] [address]- 3442 30 Oct, 2014 [facility] [place] [facility] [address] [id number] [place] [address]- 8719 Oct, [facility] [place] [facility] [address] [id number] [place] [address]- 6711 Oct, [facility] [place] [facility] [address] [id number] [place] [address]- 1312 18 Oct, 2014 [facility] [place] [facility] [address] [id number] [place] [address]- 5087 18 Oct, 2014 [facility] [place] [facility] [address] [id number] [place] [address]- 1552 Oct, [facility] [place] [facility] [address] [id number] [place] [address]- 0129 17 Oct, 2014 [facility] [place] [facility] [address] [id number] [place] [address]- 7985 Oct, [facility] [address] [id number] [place] [address]- 9502 Oct, [facility] [address] [id number] [place] [address]- 7526 Oct, [facility] [address] [id number] [place] [address]- 5933 Oct, [facility] [place] [facility] [address] [id number] [place] [address]- 5098 Oct, [facility] [address] [id number] [place] [address]- 3435 Oct, [facility] [address] [id number] [place] [address]- 1079 Sep, [facility] [address] [id number] [place] [address]- 0239 Sep, [facility] [address] [id number][place] [address] Sep, [facility] [address] [id number] [place] [address]- 8091 Sep, [facility] [address] [id number] [place] [address]- 6757 Sep, [facility] [address] [id number] [place] [address]- 4296 Sep, [facility] [place] [facility] [address] [id number], [place] [address]- 9038 Sep, [facility] [place] [facility] [address] [id number] [place] [address]- 8183 Sep, [facility] [place] [facility] [address] [id number] [place] [address]- 6326 Sep, [facility] [place] [facility] [address] [id number], [place] [address]- 2516 Sep, [facility] [place] [facility] [address] [id number] [place] [address]- 4651 Sep, [facility] [place] [facility] [address] [id number] [place] [address]- 6417 Aug, [facility] [place] [facility] [address] [id number] [place] [address]- 9913 Aug, [facility] [place] [facility] [address] [id number] [place] [address]- 9265 Aug, [facility] [place] [facility] [address] [id number] [place] [address]- 5856 Aug, [facility] [place] [facility] [address] [id number] [place] [address]- 2775 20 Aug, 2014 [facility] [place] [facility] [address] [id number] [place] [address]- 5446 15 Aug, 2014 [facility] [place] [facility] [address] [id number] [place] [address]- 4079 15 Aug, 2014 [facility] [place] [facility] [address] [id number] [place] [address]- 9475 15 Aug, 2014 [facility] [place] [facility] [address] [id number] [place] [address]- 9416 15 Aug, 2014 [facility] [place] [facility] [address] [id number] [place] [address]- 7904 13 Aug, 2014 [facility] [place] [facility] [address] [id number] [place] [address]- 9536 13 Aug, 2014 [facility] [place] [facility] [address] [id number] [place] [address]- 9320 13 Aug, 2014 [facility] [place] [facility] [address] [id number] [place] [address]- 4396 13 Aug, 2014 [facility] [place] [facility] [address] [id number] [place] [address]- 9651 2014 [facility] [place] [facility] [address] [id number] [place] [address]- 8036 Jul, [facility] [address] [id number] [place] [id number] Jul, [facility] [place] [facility] [address] [id number] [place] [address]- 5726 Jul, [facility] [place] [facility] [address] [id number] [place] [address]- 1947 Jun, [facility] [place] [facility] [address] [id number] [place] [address]- 6617 Jun, [facility] [place] [facility] [address] [id number] [place] [address]- 3913 Jun, [facility] [place] [facility] [address] [id number] [place] [address]- 1400 Jun, [facility] [place] [facility] [address] [id number] [place] [address]- 9730 Jun, [facility] [place] [facility] [address] [id number] [place] [address]- 0748 Jun, [facility] [address] [facility] [id number] [place] [id number] May, [facility] [place] [facility] [address] [id number] [place] [address]- 2975 May, [facility] [place] [facility] [address] [id number] [place] [address]- 0383 May, [facility] [place] [facility] [address] [id number] [place] [address]- 2221 May, [facility] [place] [facility] [address] [id number] [place] [address]- 9131 May, [facility] [place] [facility] [address] [id number] [place] [address]- 0966 May, [facility] [address] [id number] [place] [id number] May, [facility] [place] [facility] [address] [id number] [place] [address]- 7596 May, [facility] [place] [facility] [address] [id number] [place] [address]- 7759 Apr, [facility] [place] [facility] [address] [id number] [place] [address]- 5146 Apr, [facility] [address] [facility] [id number] [place] [id number] Apr, [facility] [place] [facility] [address] [id number] [place] [address]- 5377 Apr, [facility] [place] [facility] [address] [id number] [place] [address]- 9511 Apr, [facility] [place] [facility] [address] [id number] [place] 1017 Apr, [facility] [place] [facility] [address] [facility] [id number] [place] [address]- 7347 Apr, [facility] [place] [facility] [address] [facility] [id number] [place] [address]- 4542 Apr, [facility] [place] [facility] [address] [id number] [place] [address]- 2817 Apr, [facility] [address] [facility] [id number][place] [address] March, [facility] [place] [facility] [address] [id number] [place] [address]- 7606 March, [facility] [place] [facility] [address] [id number], [place] [address]- 1206 March, [facility] [place] [facility] [address] [id number] [place] [address]- 3146 March, [facility] [address] [facility] [id number] [place] [address] March, [facility] [place] [facility] [address] [id number] [place] [address] 2546 March, [facility] [place] [facility] [address] [facility] [id number] [place] [address]- 5516 Feb, [facility] [address] [id number] [place] [address]- 3286 Feb, [facility] [place] [facility] [address] [id number] [place] [address]- 6806 Feb, [facility] [address] [id number] [place] [address]- 5686 Feb, [facility] [place] [facility] [address] [id number] [place] [address]- 1636 Feb, [facility] [address] [id number] [place] [id number] Feb, [facility] [place] [facility] [address] [id number] [place] [address]- 3056 Feb, [facility] [address] [id number] [place] [address]- 1006 Jan, [facility] [place] [facility] [address] [id number] [place] [address]- 9206 Jan, [facility] [place] [facility] [address] [id number] [place] [address]- 5396 Jan, [facility] [place] [facility] [address] [id number] [place] [address]- 6996 Jan, [facility] [place] [facility] [address] [id number] [place] [address]- 2546 Jan, [facility] [place] [facility] [address] [id number] [place] [address]- 2546 Jan, [facility] [address] [id number] [place] [id number] Jan, [facility] [place] [facility] [address] [id number] [place] [address]- 2546 Jan, [facility] [place] [facility] [address] [id number] [place] [address]- 2546 Jan, [facility] [place] [facility] [address] [id number] [place] [address]- 2733 Jan, [facility] [place] [facility] [address] [id number] [place] [address]- 5767 Dec, [facility] [place] [facility] [address] [id number] [place] [address]- 6977 Dec, [facility] [address] [id number] [place] [address] Dec, [facility] [place] [facility] [address] [id number] [place] [address]- 2933 Dec, [facility] [place] [facility] [address] [id number] [place] [address]- 5075 Dec, [facility] [place] [facility] [address] [id number] [place] [address]- 3684 Dec, [facility] [place] [facility] [address] [id number] [place] [address]- 4086 Dec, [facility] [place] [facility] [address] [id number] [place] [address]- 4839 Dec, [facility] [place] [facility] [address] [id number] [place] [address]- 9908 Dec, [facility] [place] [facility] [address] [id number] [place] [address]- 1113 Dec, [facility] [place] [facility] [address] [id number] [place] [address]- 8354 Nov, [facility] [place] [facility] [address] [id number] [place] [address]- 3429 Nov, [facility] [place] [facility] [address] [id number] [place] [address]- 3085 Nov, [facility] [place] [facility] [address] [id number] [place] [address]- 7755 Nov, [facility] [place] [facility] [address] [id number] [place] [address]- 3529 Nov, [facility] [place] [facility] [address] [id number], [place] [address]- 9966 Nov, [facility] [address] [id number], [place] [address]- 0638 Nov, [facility] [address] [id number], [place] [address]- 7572 Nov, [facility] [address] [id number][place] [id number] Nov, [facility] [address] [address]- 7277 Nov, [facility] [address], [place] [address]- 1637 Oct, [facility] [address], [place] [address]- 2133 Oct, [facility] [address] 0711 Sep, [facility] [address], [place] [address]- 7057 Sep, [facility] [address] 8979 Sep, [facility] [address] [id number] [address]- 3552 Sep, [facility] [address] [id number], [place] [address]- 6716 Aug, [facility] [address] [id number], [place] [address]- 7674 Aug, [facility] [address] [id number] 3725 Jul, IMMUNIZATIONS No Known Immunizations SOCIAL HISTORY Never Assessed REASON FOR VISIT PLAN OF CARE VITAL SIGNS MEDICATIONS Medication Instructions Dosage Frequency Start Date End Date Duration Status Neurontin 600 MG Orally 4 times a day 1 tablet 6h 30 days Active RESULTS No Results PROCEDURES [...] History [facility] Psychosis approved for transfer to [place] unit left AMA 11/17/2016 Hospitalization History inpatient treatment for substance use
--- OUTSIDE RECORDS SUMMARY | 2018-04-19 17:07 | XMS REPORT ---
Author Author ABBY BENAVIDES [facility] [employer] Address Unknown Phone Unavailable Care Team Providers Care Sales Department Supervisor Name Role Phone ABBY BENAVIDES CP Unavailable Allergies, Adverse Reactions, Alerts Substance Reaction Event Type Zoloft diarrhea Drug Allergy Lomotil syncope Drug Allergy Chantix Info Not Available Drug Allergy Meloxicam 15 Mg Tablet bloody emesis Non Drug Allergy Buspirone 15 Mg Tablet Info Not Available Non Drug Allergy Problems Problem Type Condition Code Onset Dates Condition Status Problem Reactive depression F32.9 Active Problem Diarrhea, unspecified type R19.7 Active Problem Anxiety state, unspecified F41.1 Active Assessment Upper respiratory tract infection, unspecified type J06.9 Active Assessment Scoliosis M41.9 Active Problem Scoliosis M41.9 Active Problem Arthritis M19.90 Active Medications Medication Code System Code Instructions Start Date End Date Status Dosage Sudafed [facility] [address]-93 60 mg Orally every 6 hrs Oct 03, 2016 1 tablet as needed Neurontin [facility] [id number] 600 MG Three times a day 1 Tablet 3 times per day for pain Naproxen [facility] [id number] 500 MG Twice a day take 1 tablet by Oral route 2 times per day with food take w food Elavil [facility] [address]-01 50 mg Orally Once a day Jul 14, [address] [facility] [address]-04 50 mg by oral route Once a day Nov 15, 2014 take 1 tablet (100 mg) by oral route once daily at bedtime Procedures Procedure Coding System Code Date Office Visit, Est Pt., Level 3 CPT-4 17904 Oct 03, 2016 Vital Signs Date/Time: Oct 03, 2016 Cardiac Monitoring Heart Rate 78 bpm Weight 108.8 lbs Height 60 in BMI 21.25 Index Blood Pressure Diastolic 70 mmHg Blood Pressure Systolic 110 mmHg Results No Known Results Summary Purpose eClinicalWorks Submission
--- OUTSIDE RECORDS SUMMARY | 2018-04-19 17:08 | XMS REPORT ---
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 042810772 Problem Allergy, initial encounter T78.40XA Active 585644288 Problem Depressive disorder, not elsewhere classified F32.9 Active 47243223 Problem Posttraumatic stress disorder F43.10 Active 56905697 Problem Depressive disorder F32.9 Active 56339034 Problem 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 Active 516435564 Problem Lumbar radiculopathy M54.16 Active 405059875 Problem Post traumatic stress disorder F43.10 Active 40124508 Problem Scoliosis M41.9 Active 832096678 Problem Diarrhea, unspecified type R19.7 Active 01700715 Problem Reactive depression F32.9 Active 57326966 Problem Arthritis M19.90 Active 1147813 Problem Anxiety state, unspecified F41.1 Active 645056337 ALLERGIES No Information ENCOUNTERS Encounter Location Date Diagnosis [facility] [id number] [address] Feb, [facility] [id number] [place] [address] 23574- 9041 Feb, [facility] [id number] [address] 404[address] Jan, [facility] [id number] [place] [address] 70159- 1608 Jan, [facility] [address] [address] 2425 Jan, Posttraumatic stress disorder F43.10 and Depressive disorder , not elsewhere classified F32.9 [facility] [id number] [place] [address] 81681- 4594 Nov, Dental abscess K04.7 ; Arthritis M19.90 and Depressive disorder, not elsewhere classified F32.9 [facility] [id number] [place] [address] 97153- 2429 18 Oct, 2017 Post traumatic stress disorder F43.10 ; Amphetamine dependence, 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 ; 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 and Depressive disorder F32.9 [facility] [id number] [place] [address] 46468- 2919 04 Oct, 2017 Post traumatic stress disorder F43.10 [facility] [id number] [place] [address] 42810 -9954 30 Sep, 2017 Acute non-recurrent pansinusitis J01.40 [place] [address] [address]- 6019 Sep, Scoliosis M41.9 [facility] [address] 46239- 9956 Aug, Posttraumatic stress disorder F43.10 and Depressive disorder , not elsewhere classified F32.9 [facility] [id number] [place] [address] 03909- 6368 Aug, Scoliosis M41.9 [facility] [id number] [place] [address] 32015 -7436 Jul, [facility] [address] 17440- 6537 Jul, Scoliosis M41.9 [facility] [address] 88997- 7921 Jun, Scoliosis M41.9 ; Lumbar radiculopathy M54.16 and Acute nasopharyngitis J00 [facility] [address] 17261- 6990 Jun, Scoliosis M41.9 [place] [id number] [place] [address] 44901- 2403 Jun, Reactive depression F32.9 [place] [id number] [place] [address] 24705- 3638 May, Post traumatic stress disorder F43.10 ; Amphetamine dependence, 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 ; 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 and Depressive disorder F32.9 [place] [id number] [place] [address] 18136- 9711 May, Anxiety state, unspecified F41.1 [place] [id number] [place] [address] 38951- 5393 Apr, [place] [address] 36769- 2353 Apr, Anxiety state, unspecified F41.1 [place] [address] 81644- 3338 March, Arthritis M19.90 ; Scoliosis M41.9 and Allergy, initial encounter T78.40XA [place] [id number] [place] [address] 80555- 7928 March, Anxiety state, unspecified F41.1 [place] [id number] [place] [address] 07975- 3815 Jan, Anxiety state, unspecified F41.1 [place] [id number] [place] [address] 11631- 1585 Dec, Anxiety state, unspecified F41.1 [facility] [id number] [place] [address] 81464 -9672 Dec, Sore throat J02.9 ; Other viral agents as the cause of diseases classified elsewhere B97.89 and Acute upper respiratory infection, unspecified J06.9 [place] [id number] [place] [address] 17961- 8402 Nov, Anxiety state, unspecified F41.1 [place] [id number] [place] [address] 20236- 0221 Nov, Reactive depression F32.9 [place] [address] 45650- 0241 Nov, Affective disorder F39 [facility] [address] 50184- 0922 Oct, [place] [address] 73913- 2849 Oct, Other psychoactive substance use, unspecified with intoxication with delirium F19.921 [place] [address] 54113- 0530 Sep, Upper respiratory tract infection, unspecified type J06.9 and Scoliosis M41.9 [place] [address] 98909- 3001 Aug, Anxiety state, unspecified F41.1 and Depressive disorder, not elsewhere classified F32.9 [place] [address] 39525- 9781 Jul, [place] [address] 67426- 4798 Jun, Scoliosis M41.9 ; Reactive depression F32.9 and Diarrhea, unspecified type R19.7 [place] [id number] [place] [address] 20962- 3198 May, [place] [address] 23476- 9727 Nov, Sinusitis J32.9 ; Scoliosis M41.9 ; Arthritis M19.90 and Nipple lesion N64.9 [facility] [id number] [place] [address] 26149- 8708 Feb, [place] [address] 79312- 7687 Feb, [facility] [place] [facility] [address] [id number] [place] [address]- 3588 Jan, [facility] [place] [facility] [address] [id number] [place] [address]- 6557 Jan, [facility] [place] [facility] [address] [id number] [place] [address]- 1348 Jan, [facility] [place] [facility] [address] [id number] [place] [address]- 1326 Jan, [facility] [place] [facility] [address] [id number] [place] [address]- 2756 Dec, [facility] [place] [facility] [address] [id number] [place] [address]- 2211 Dec, 2014 [facility] [place] [facility] [address] [id number] [place] [address]- 4855 Dec, [facility] [place] [facility] [address] [id number] [address]- 7013 Dec, [facility] [place] [facility] [address] [id number] [place] [address]- 0499 Dec, [facility] [place] [facility] [address] [facility] [id number] [place] [address]- 4008 Dec, [facility] [address] [id number] [address] Dec, [facility] [place] [facility] [address] [facility] [id number] [place] [address]- 4048 Dec, [facility] [place] [facility] [address] [id number] [place] [address]- 6160 Nov, [facility] [place] [facility] [address] [id number] [address]- 4303 Nov, [facility] [place] [facility] [address] [facility] [id number] [place] 6484 Nov, [facility] [place] [facility] [address] [id number] [place] [address]- 2555 Nov, [facility] [address] [id number] [place] 5515 Nov, [facility] [place] [facility] [address] [id number] [place] [address]- 0381 Nov, [facility] [address] [id number] [place] [address]- 3322 Nov, [facility] [address] [id number] [id number] Nov, [facility] [address] [id number] [place] 9410 Nov, [facility] [place] [facility] [address] [id number] [place] [address]- 7942 Nov, [facility] [address] [id number] [place] 6642 Nov, [facility] [place] [facility] [address] [id number] [place] [address]- 9715 Oct, [facility] [place] [facility] [address] [id number] [place] [address]- 5120 30 Oct, 2014 [facility] [place] [facility] [address] [id number] [place] [address]- 1175 Oct, [facility] [place] [facility] [address] [id number] [place] [address]- 3372 Oct, [facility] [place] [facility] [address] [id number] [place] [address]- 2241 18 Oct, 2014 [facility] [place] [facility] [address] [id number] [place] [address]- 2115 18 Oct, 2014 [facility] [place] [facility] [address] [id number] [place] [address]- 8011 Oct, [facility] [place] [facility] [address] [id number] [place] [address]- 1772 17 Oct, 2014 [facility] [place] [facility] [address] [id number] [place] [address]- 3636 Oct, [facility] [address] [id number] [place] [address]- 6904 Oct, [facility] [address] [id number] [place] [address]- 3626 Oct, [facility] [address] [id number] [place] [address]- 6854 Oct, [facility] [place] [facility] [address] [id number] [place] [address]- 4580 Oct, [facility] [address] [id number] [place] [address]- 1410 Oct, [facility] [address] [id number] [place] [address]- 9229 Sep, [facility] [address] [id number] [place] [address]- 7838 Sep, [facility] [address] [id number] [id number] Sep, [facility] [address] [id number] [place] [address]- 4234 Sep, [facility] [address] [id number] [place] [address]- 8055 Sep, [facility] [address] [id number] [place] [address]- 8981 Sep, [facility] [place] [facility] [address] [id number] [place] [address]- 9957 Sep, [facility] [place] [facility] [address] [id number] [place] [address]- 8755 Sep, [facility] [place] [facility] [address] [id number] [place] [address]- 9676 Sep, [facility] [place] [facility] [address] [id number] [place] [address]- 1076 Sep, [facility] [place] [facility] [address] [id number] [place] [address]- 3333 Sep, [facility] [place] [facility] [address] [id number] [place] [address]- 8177 Aug, [facility] [place] [facility] [address] [id number] [place] [address]- 8208 Aug, [facility] [place] [facility] [address] [id number] [place] [address]- 8376 Aug, [facility] [place] [facility] [address] [id number] [place] [address]- 1069 Aug, [facility] [place] [facility] [address] [id number] [place] [address]- 6190 20 Aug, 2014 [facility] [place] [facility] [address] [id number] [place] [address]- 8280 15 Aug, 2014 [facility] [place] [facility] [address] [id number] [place] [address]- 1774 15 Aug, 2014 [facility] [place] [facility] [address] [id number] [place] [address]- 6561 15 Aug, 2014 [facility] [place] [facility] [address] [id number] [place] [address]- 8730 15 Aug, 2014 [facility] [place] [facility] [address] [id number] [place] [address]- 8243 13 Aug, 2014 [facility] [place] [facility] [address] [id number] [place] [address]- 7144 13 Aug, 2014 [facility] [place] [facility] [address] [id number] [place] [address]- 6715 13 Aug, 2014 [facility] [place] [facility] [address] [id number] [place] [address]- 4016 13 Aug, 2014 [facility] [place] [facility] [address] [id number] [place] [address]- 3400 2014 [facility] [place] [facility] [address] [id number] [place] [address]- 9516 Jul, [facility] [address] [id number] [place] [id number] Jul, [facility] [place] [facility] [address] [id number] [place] [address]- 6786 Jul, [facility] [place] [facility] [address] [id number] [place] [address]- 2818 Jun, [facility] [place] [facility] [address] [id number] [place] [address]- 9372 Jun, [facility] [place] [facility] [address] [id number] [place] [address]- 7278 Jun, [facility] [place] [facility] [address] [id number] [place] [address]- 6285 Jun, [facility] [place] [facility] [address] [id number] [place] [address]- 5171 Jun, [facility] [place] [facility] [address] [id number] [place] [address]- 3228 Jun, [facility] [address] [facility] [id number] [place] [id number] May, [facility] [place] [facility] [address] [id number] [place] [address]- 9301 May, [facility] [place] [facility] [address] [id number] [place] [address]- 5601 May, [facility] [place] [facility] [address] [id number] [place] [address]- 9752 May, [facility] [place] [facility] [address] [id number] [place] [address]- 8550 May, [facility] [place] [facility] [address] [id number] [place] [address]- 1066 May, [facility] [address] [id number] [place] [address] May, [facility] [place] [facility] [address] [id number] [place] [address]- 2326 May, [facility] [place] [facility] [address] [id number] [place] [address]- 5232 Apr, [facility] [place] [facility] [address] [id number] [place] [address]- 2686 Apr, [facility] [address] [facility] [id number] [place] [address] Apr, [facility] [place] [facility] [address] [id number] [place] [address]- 7805 Apr, [facility] [place] [facility] [address] [id number] [place] [address]- 4404 Apr, [facility] [place] [facility] [address] [id number] [place] 7020 Apr, [facility] [place] [facility] [address] [facility] [id number] [place] [address]- 4593 Apr, [facility] [place] [facility] [address] [facility] [id number] [place] [address]- 5186 Apr, [facility] [place] [facility] [address] [id number] [place] [address]- 0619 Apr, [facility] [address] [facility] [id number] [address] March, [facility] [place] [facility] [address] [id number] [place] [address]- 1706 March, [facility] [place] [facility] [address] [id number] [place] [address]- 9056 March, [facility] [place] [facility] [address] [id number] [place] [address]- 2906 March, [facility] [address] [facility] [id number] [place] [id number] March, [facility] [place] [facility] [address] [id number] [place] [address] 2546 March, [facility] [place] [facility] [address] [facility] [id number] [place] [address]- 4586 Feb, [facility] [address] [id number] [place] [address]- 6846 Feb, [facility] [place] [facility] [address] [id number] [place] [address]- 1046 Feb, [facility] [address] [id number] [place] [address]- 1316 Feb, [facility] [place] [facility] [address] [id number] [place] [address]- 8646 Feb, [facility] [address] [id number] [place] [id number] Feb, [facility] [place] [facility] [address] [id number] [place] [address]- 2536 Feb, [facility] [address] [id number] [place] [address]- 7406 Jan, [facility] [place] [facility] [address] [id number] [place] [address]- 5596 Jan, [facility] [place] [facility] [address] [id number] [place] [address]- 2846 Jan, [facility] [place] [facility] [address] [id number] [place] [address]- 5606 Jan, [facility] [place] [facility] [address] [id number] [place] [address]- 2546 Jan, [facility] [place] [facility] [address] [id number] [place] [address]- 2546 Jan, [facility] [address] [id number] [place] [address] Jan, [facility] [place] [facility] [address] [id number] [place] [address]- 2546 Jan, [facility] [place] [facility] [address] [id number] [place] [address]- 2546 Jan, [facility] [place] [facility] [address] [id number] [place] [address]- 9398 Jan, [facility] [place] [facility] [address] [id number] [place] [address]- 4073 Dec, [facility] [place] [facility] [address] [id number] [place] [address]- 2402 Dec, [facility] [address] [id number] [place] [address] Dec, [facility] [place] [facility] [address] [id number] [place] [address]- 5073 Dec, [facility] [place] [facility] [address] [id number] [place] [address]- 0722 Dec, [facility] [place] [facility] [address] [id number] [place] [address]- 0419 Dec, [facility] [place] [facility] [address] [id number] [place] [address]- 8443 Dec, [facility] [place] [facility] [address] [id number] [place] [address]- 4201 Dec, [facility] [place] [facility] [address] [id number] [place] [address]- 8215 Dec, [facility] [place] [facility] [address] [id number] [place] [address]- 8399 Dec, [facility] [place] [facility] [address] [id number] [place] [address]- 4313 Nov, [facility] [place] [facility] [address] [id number] [place] [address]- 8768 Nov, [facility] [place] [facility] [address] [id number] [place] [address]- 2965 Nov, [facility] [place] [facility] [address] [id number] [place] [address]- 9711 Nov, [facility] [place] [facility] [address] [id number] [place] [address]- 3572 Nov, [facility] [place] [facility] [address] [id number] [address]- 8374 Nov, [facility] [address] [id number] [address]- 5441 Nov, [facility] [address] [id number] [address]- 6995 Nov, [facility] [address] [id number] [id number] Nov, [facility] [address] [id number] [address]- 6618 Nov, [facility] [id number] [address]- 8039 Oct, [facility] [id number] [address]- 1097 Oct, [facility] [id number] [address]- 8039 Sep, [facility] [address] [id number] [address]- 6952 Sep, [facility] [id number] [address]- 0647 Sep, [facility] [id number] [address]- 1663 Sep, [facility] [id number] [address]- 4130 Aug, [facility] [id number] [address]- 2556 Aug, [facility] [address] [id number] [address]- 3325 Jul, IMMUNIZATIONS No Known Immunizations SOCIAL HISTORY Never Assessed REASON FOR VISIT Unable to contact pt/Refill request PLAN OF CARE VITAL SIGNS MEDICATIONS Unknown Medications RESULTS No Results PROCEDURES No Known procedures [...] History [facility] Psychosis approved for transfer to [facility] unit left AMA 11/17/2016 Hospitalization History inpatient treatment for substance use
--- OUTSIDE RECORDS SUMMARY | 2018-04-19 17:08 | XMS REPORT ---
Author Author ABBY BENAVIDES 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 644109416 Problem Allergy, initial encounter T78.40XA Active 712783746 Problem Depressive disorder, not elsewhere classified F32.9 Active 20833119 Problem Posttraumatic stress disorder F43.10 Active 71352079 Problem Depressive disorder F32.9 Active 27829941 Problem 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 Active 699251150 Problem Lumbar radiculopathy M54.16 Active 751297121 Problem Post traumatic stress disorder F43.10 Active 34824631 Problem Scoliosis M41.9 Active 547448511 Problem Diarrhea, unspecified type R19.7 Active 13204456 Problem Reactive depression F32.9 Active 55180360 Problem Arthritis M19.90 Active 8786988 Problem Anxiety state, unspecified F41.1 Active 694249674 ALLERGIES Substance Reaction Event Type Date Status Zoloft diarrhea Drug Allergy Jun, Active Lomotil syncope Drug Allergy Jun, Active Chantix Unknown Drug Allergy Jun, Active Buspirone 15 Mg Tablet headaches Non Drug Allergy Jun, Active Meloxicam 15 Mg Tablet bloody emesis Non Drug Allergy Jun, Active ENCOUNTERS Encounter Location Date Diagnosis [facility] [address] [facility] [id number] [address] Feb, [facility] [address] [facility] [id number][place] [address] 7[address] Jan, [facility] [address] [facility] [id number][place] [address] Jan, Posttraumatic stress disorder F43.10 and Depressive disorder , not elsewhere classified F32.9 [facility] [id number] [place] [address] 12995- 6851 Nov, Dental abscess K04.7 ; Arthritis M19.90 and Depressive disorder, not elsewhere classified F32.9 [facility] [id number] [place] [address] 33722- 6767 18 Oct, 2017 Post traumatic stress disorder F43.10 ; Amphetamine dependence, 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 ; 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 and Depressive disorder F32.9 [facility] [address] [address]- [address]69 Oct, Post traumatic stress disorder F43.10 [facility] [id number] [place] [address]79 -4454 30 Sep, 2017 Acute non-recurrent pansinusitis J01.40 [place] [address] [address]- [address] Sep, Scoliosis M41.9 [facility] [address] [address]- 6135 Aug, Posttraumatic stress disorder F43.10 and Depressive disorder , not elsewhere classified F32.9 [place] [id number] [place] [address] 25263- 3307 Aug, Scoliosis M41.9 [facility] [address] [address] Jul, [place] [id number] [place] [address] 36324- 6991 Jul, Scoliosis M41.9 [place] [address] 71913- 3262 Jun, Scoliosis M41.9 ; Lumbar radiculopathy M54.16 and Acute nasopharyngitis J00 [place] [address] 03384- 9460 Jun, Scoliosis M41.9 [place] [id number] [place] [address] 58368- 7294 Jun, Reactive depression F32.9 [place] [id number] [place] [address] 23256- 3116 May, Post traumatic stress disorder F43.10 ; Amphetamine dependence, 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 ; 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 and Depressive disorder F32.9 [place] [address] 9[address]88- 9785 May, Anxiety state, unspecified F41.1 [place] [address] 72605- 8768 Apr, [place] [address] 95[address]- 1378 Apr, Anxiety state, unspecified F41.1 [place] [address] 20029- 1417 March, Arthritis M19.90 ; Scoliosis M41.9 and Allergy, initial encounter T78.40XA [place] [address] 22865- 7718 March, Anxiety state, unspecified F41.1 [place] [id number] [place] [address] 22601- 9211 Jan, Anxiety state, unspecified F41.1 [place] [id number] [place] [address] 47167- 4610 Dec, Anxiety state, unspecified F41.1 [facility] [id number] [place] [address] 79200 -1648 Dec, Sore throat J02.9 ; Other viral agents as the cause of diseases classified elsewhere B97.89 and Acute upper respiratory infection, unspecified J06.9 [place] [address] 92763- 4286 Nov, Anxiety state, unspecified F41.1 [place] [id number] [place] [address] 86967- 7476 Nov, Reactive depression F32.9 [place] [id number] [place] [address] 43815- 0297 Nov, Affective disorder F39 [place] [address] 26586- 5212 Oct, [place] [address] 87316- 5002 Oct, Other psychoactive substance use, unspecified with intoxication with delirium F19.921 [place] [address] 06756- 2312 Sep, Upper respiratory tract infection, unspecified type J06.9 and Scoliosis M41.9 [place] [address] 45902- 7795 Aug, Anxiety state, unspecified F41.1 and Depressive disorder, not elsewhere classified F32.9 [place] [address] 12352- 7018 Jul, [place] [id number] [place] [address] 98059- 1181 Jun, Scoliosis M41.9 ; Reactive depression F32.9 and Diarrhea, unspecified type R19.7 [place] [id number] [place] [address] 25597- 0793 May, [place] [id number] [place] [address] 42998- 0797 Nov, Sinusitis J32.9 ; Scoliosis M41.9 ; Arthritis M19.90 and Nipple lesion N64.9 [place] [id number] [place] [address] 59282- 2937 14 Feb, 2015 [place] [address] 28538- 7588 Feb, [facility] [place] [facility] [address] [id number] [place] [address]- 5457 Jan, [facility] [place] [facility] [address] [id number] [place] [address] Jan, [facility] [place] [facility] [address] [id number] [place] [address] Jan, [facility] [place] [facility] [address] [id number] [place] [address]- 3458 Jan, [facility] [place] [facility] [address] [id number] [place] [address]- 1168 Dec, [facility] [place] [facility] [address] [id number] [place] [address]- 0182 Dec, 2014 [facility] [place] [facility] [address] [id number], [place] [address]- 9842 Dec, [facility] [place] [facility] [address] [id number][place] [address]- 6061 Dec, [facility] [place] [facility] [address] [id number][place] [address]- 6332 Dec, [facility] [place] [facility] [address] [facility] [id number][place] [address]- 6109 Dec, [facility] [address] [id number] [place] [id number] Dec, [facility] [place] [facility] [address] [id number][place] [address]- 0928 Dec, [facility] [place] [facility] [address] [id number][place] [address]- 4769 Nov, [facility] [place] [facility] [address] [id number], [place] [address]- 8626 Nov, [facility] [place] [facility] [address] [id number][place] [address]- 4483 Nov, [facility] [place] [facility] [address] [id number] [place] [address]- 0424 Nov, [facility] [address] [id number] [place] [address]- 3631 Nov, [facility] [address] [id number] [place] [address]- 2373 Nov, [facility] [place] [facility] [address] [id number] [place] [address]- 4501 Nov, [facility] [address] [id number] [place] [address] Nov, [facility] [address] [id number] [place] [address]- 9326 Nov, [facility] [address] [id number] [place] [address]- 6106 Nov, [facility] [address] [id number] [place] [address]- 3993 Nov, [facility] [address] [id number] [place] [address]- 2336 Oct, [facility] [address] [id number] [place] [address]- 3067 Oct, [facility] [address] [id number] [place] [address]- 2935 Oct, [facility] [address] [id number] [place] [address]- 7151 Oct, [facility] [place] [facility] [address] [id number] [place] [address]- 4484 18 Oct, 2014 [facility] [place] [facility] [address] [id number] [place] [address]- 6563 Oct, [facility] [place] [facility] [address] [id number] [place] [address]- 0016 Oct, [facility] [place] [facility] [address] [id number] [place] [address]- 8456 Oct, [facility] [place] [facility] [address] [id number] [place] [address]- 9236 Oct, [facility] [place] [facility] [address] [id number] [place] [address]- 4585 Oct, [facility] [place] [facility] [address] [id number] [place] [address]- 7496 Oct, [facility] [place] [facility] [address] [id number] [place] [address]- 0658 Oct, [facility] [place] [facility] [address] [id number] [place] [address]- 0988 Oct, [facility] [place] [facility] [address] [id number] [place] [address]- 0888 Oct, [facility] [place] [facility] [address] [id number] [place] [address]- 9192 Sep, [facility] [place] [facility] [address] [id number] [place] [address]- 4611 Sep, [facility] [address] [id number] [place] [address] Sep, [facility] [place] [facility] [address] [id number] [place] [address]- 1836 Sep, [facility] [place] [facility] [address] [id number] [place] [address]- 5121 Sep, [facility] [place] [facility] [address] [id number] [place] [address]- 9738 Sep, [facility] [place] [facility] [address] [id number] [place] [address]- 9426 Sep, [facility] [place] [facility] [address] [id number] [place] [address]- 7626 Sep, [facility] [place] [facility] [address] [id number] [place] [address]- 2546 Sep, [facility] [place] [facility] [address] [id number] [place] [address]- 2172 Sep, [facility] [place] [facility] [address] [id number] [place] [address]- 6877 Sep, [facility] [place] [facility] [address] [id number] [place] [address]- 6904 Aug, [facility] [place] [facility] [address] [id number] [place] [address]- 6481 Aug, [facility] [place] [facility] [address] [id number] [place] [address]- 6986 Aug, [facility] [place] [facility] [address] [id number] [place] [address]- 3887 Aug, [facility] [place] [facility] [address] [id number] [place] [address]- 0858 Aug, [facility] [place] [facility] [address] [id number] [place] [address]- 3305 15 Aug, 2014 [facility] [place] [facility] [address] [id number] [place] [address]- 7917 15 Aug, 2014 [facility] [place] [facility] [address] [id number] [place] [address]- 9471 15 Aug, 2014 [facility] [place] [facility] [address] [id number][place] [address]- 6780 15 Aug, 2014 [facility] [place] [facility] [address] [id number] [place] [address]- 1014 13 Aug, 2014 [facility] [place] [facility] [address] [id number] [address]- 2955 13 Aug, 2014 [facility] [place] [facility] [address] [id number] [place] [address]- 7993 13 Aug, 2014 [facility] [place] [facility] [address] [id number] [place] [address]- 4017 13 Aug, 2014 [facility] [place] [facility] [address] [id number] [place] [address]- 4394 2014 [facility] [place] [facility] [address] [id number] [place] [address]- 2161 Jul, [facility] [address] [facility] [id number] [place] [address] Jul, [facility] [place] [facility] [address] [id number] [place] [address]- 3068 Jul, [facility] [place] [facility] [address] [id number] [place] [address]- 6031 Jun, [facility] [place] [facility] [address] [id number] [place] [address]- 3599 Jun, [facility] [place] [facility] [address] [id number] [place] [address]- 3821 Jun, [facility] [place] [facility] [address] [facility] [id number] [place] [address]- 1745 Jun, [facility] [place] [facility] [address] [facility] [id number] [place] [address]- 8755 Jun, [facility] [place] [facility] [address] [id number] [place] [address]- 8100 Jun, [facility] [address] [facility] [id number] [place] [address] May, [facility] [place] [facility] [address] [facility] [id number][place] [address]- 6921 May, [facility] [place] [facility] [address] [facility] [id number][place] [address]- 9088 May, [facility] [place] [facility] [address] [id number], [place] [address]- 4592 May, [facility] [place] [facility] [address] [id number], [place] [address]- 6729 May, [facility] [place] [facility] [address] [facility] [id number], [place] [address]- 3403 May, [facility] [address] [facility] [id number] [place] [address] May, [facility] [place] [facility] [address] [id number], [place] [address]- 6356 May, [facility] [place] [facility] [address] [id number] [place] [address]- 1205 Apr, [facility] [place] [facility] [address] [facility] [id number] [place] [address]- 3645 Apr, [facility] [address] [facility] [id number] [place]KE[place] [address] Apr, [facility] [place] [facility] [address] [id number] [place] [address]- 5198 Apr, [facility] [place] [facility] [address] [id number] [place] [address]- 7940 Apr, [facility] [place] [facility] [address] [facility] [id number] [place] [address]- 2720 Apr, [facility] [place] [facility] [address] [facility] [id number][place] [address]- 1427 Apr, [facility] [place] [facility] [address] [facility] [id number][place] [address]- 5489 Apr, [facility] [place] [facility] [address] [facility] [id number], [place] [address]- 2329 Apr, [facility] [address] [facility] [id number] [place] [address] March, [facility] [place] [facility] [address] [facility] [id number][place] 5047 March, [facility] [place] [facility] [address] [facility] [id number], [place] [address]- 5273 March, [facility] [place] [facility] [address] [facility] [id number], [place] [address]- 6449 March, [facility] [address] [facility] [id number] [place]KE[place] [address] March, [facility] [place] [facility] [address] [facility] [id number], [place] [address]- 0168 March, [facility] [place] [facility] [address] [facility] [id number], [place] [address]- 9526 Feb, [facility] [place] [facility] [address] [id number] [place] [address]- 1196 Feb, [facility] [place] [facility] [address] [id number] [place] [address]- 2446 Feb, [facility] [place] [facility] [address] [id number] [place] [address]- 2776 Feb, [facility] [place] [facility] [address] [id number] [place] [address]- 6996 Feb, [facility] [address] [id number] [place] [address] Feb, [facility] [place] [facility] [address] [id number] [place] [address]- 9676 Feb, [facility] [place] [facility] [address] [id number] [place] [address]- 1116 Jan, [facility] [place] [facility] [address] [id number] [place] [address]- 8628 Jan, [facility] [place] [facility] [address] [id number] [place] [address]- 7083 Jan, [facility] [place] [facility] [address] [id number], [place] [address]- 2946 Jan, [facility] [place] [facility] [address] [id number], [place] [address]- 2546 Jan, [facility] [place] [facility] [address] [id number], [place] [address]- 3426 Jan, [facility] [address] [id number] [place] [id number] Jan, [facility] [place] [facility] [address] [id number] [place] [address]- 7236 Jan, [facility] [place] [facility] [address] [id number] [place] [address]- 2546 Jan, [facility] [place] [facility] [address] [id number][place] [address]- 2887 Jan, [facility] [address] [facility] [id number] [place] [address]- 2488 Dec, [facility] [place] [facility] [address] [facility] [id number] [place] [address]- 6327 Dec, [facility] [address] [facility] [id number] [place] [address] Dec, [facility] [place] [facility] [address] [facility] [id number] [place] [address]- 9313 Dec, [facility] [place] [facility] [address] [facility] [id number] [place] [address]- 5293 Dec, [facility] [place] [facility] [address] [facility] [id number] [place] [address]- 0847 Dec, [facility] [place] [facility] [address] [id number] [place] [address]- 9978 Dec, [facility] [place] [facility] [address] [facility] [id number] [place] [address]- 7698 Dec, [facility] [place] [facility] [address] [facility] [id number] [place] [address]- 6822 Dec, [facility] [place] [facility] [address] [facility] [id number] [place] [address]- 8404 Dec, [facility] [place] [facility] [address] [facility] [id number] [place] [address]- 1464 Nov, [facility] [place] [facility] [address] [facility] [id number], [place] [address]- 5872 Nov, [facility] [place] [facility] [address] [facility] [id number] [place] [address]- 9294 Nov, [facility] [place] [facility] [address] [facility] [id number] [place] [address]- 9128 Nov, [facility] [place] [facility] [address] [facility] [id number][place] [address]- 7027 Nov, [facility] [address] [id number] [address]- 8636 Nov, [facility] [address] [id number], [place] [address]- 0806 Nov, [facility] [address] [id number], [place] [address]- 9986 Nov, [facility] [address] [id number] [address] Nov, [facility] [address] [id number] [place] [address]- 8376 Nov, [facility] [address] [id number] [place] [address]- 2976 Oct, [facility] [id number], [place] [address]- 117[address] Oct, [facility] [id number] [address] Sep, [facility] [id number] [address] Sep, [facility] [id number] [address] Sep, [facility] [id number] [address] Sep, [facility] [id number] [address] Aug, [facility] [id number] [address] Aug, [facility] [id number] [address] Jul, IMMUNIZATIONS No Known Immunizations SOCIAL HISTORY Never Assessed REASON FOR VISIT Pain management (chronic) check prescriptions, gabapentin was at [facility] and is now [facility]?, may have cold, wants to be checked for this. CBrumbackRn PLAN OF CARE Activity Details Follow Up 6 Months Reason: VITAL SIGNS Height 60 in 2017-07-24 Weight 115.9 lbs 2017-07-24 Temperature 98.5 degrees Fahrenheit 2017-07-24 Heart Rate 72 bpm 2017-07-24 Respiratory Rate 16 2017-07-24 BMI 22.63 kg/m2 2017-07-24 Blood pressure systolic 100 mmHg 2017-07-24 Blood pressure diastolic 62 mmHg 2017-07-24 MEDICATIONS Medication Instructions Dosage Frequency Start Date End Date Duration Status HydrOXYzine HCl 50 mg Orally twice a day as needed for high anxiety 1/2 to 1 tablet May, 30 days Active Amitriptyline HCl 75 MG Orally at bedtime 1 tablet May, 30 day(s) Active Neurontin 600 MG Orally Three times a day 1 tablet 8h 30 days Active Prazosin HCl 2 MG Orally at [...] History childbirth Hospitalization History [facility] 11/16/2016 Hospitalization History [facility] transfer to [facility] left [facility] 11/17/2016 Hospitalization History inpatient treatment for substance use
--- OUTSIDE RECORDS SUMMARY | 2018-04-19 17:08 | XMS REPORT ---
Author Author ABBY BENAVIDES [facility] Address [address] [place] [address] Care Team Providers Care [employer] Name Role Phone ABBY BENAVIDES Unavailable PROBLEMS Type Condition ICD9-CM Code HON06-UZ Code Onset Dates Condition Status SNOMED Code Problem Diarrhea, unspecified type R19.7 Active 53549490 Problem Anxiety state, unspecified F41.1 Active 620043636 Problem Reactive depression F32.9 Active 55320470 Problem Arthritis M19.90 Active 3936165 Problem Scoliosis M41.9 Active 939169707 Problem Post traumatic stress disorder F43.10 Active 99625942 Problem 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 Active 538857521 Problem Allergy, initial encounter T78.40XA Active 663616991 Problem Affective disorder F39 Active 93527216 Problem Depressive disorder F32.9 Active 64564601 Problem Amphetamine dependence, 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
--- OUTSIDE RECORDS SUMMARY | 2018-04-19 17:08 | XMS REPORT ---
Author Author ABBY BENAVIDES [facility] e[employer] Address Unknown Phone Unavailable Care Team Providers Care Supervisor Water Softener Service Name Role Phone ABBY BENAVIDES CP Unavailable Allergies, Adverse Reactions, Alerts Substance Reaction Event Type Zoloft diarrhea Drug Allergy Chantix Info Not Available Drug Allergy Buspirone 15 Mg Tablet Info Not Available Non Drug Allergy Meloxicam 15 Mg Tablet bloody emesis Non Drug Allergy Problems Problem Type Condition Code Onset Dates Condition Status Problem Diarrhea, unspecified type R19.7 Active Problem Scoliosis M41.9 Active Problem Reactive depression F32.9 Active Assessment Reactive depression F32.9 Active Assessment Diarrhea, unspecified type R19.7 Active Problem Arthritis M19.90 Active Assessment Scoliosis M41.9 Active Medications Medication Code System Code Instructions Start Date End Date Status Dosage Lomotil [facility] [address]-44 2.5-0.025 MG Orally Four times a day Jul 14, 2016 1 tablet as needed amitriptyline [facility] [address]-02 50 mg by oral route Once a day Nov 15, 2014 take 1 tablet (100 mg) by oral route once daily at bedtime Neurontin [facility] [id number] 600 MG Three times a day 1 Tablet 3 times per day for pain Naproxen [facility] [address]-64 500 MG Twice a day Dec 07, 2014 take 1 tablet by Oral route 2 times per day with food take w food Elavil [facility] [address]-15 50 mg Orally Once a day Jul 14, 2016 1 tablet Procedures Procedure Coding System Code Date Office Visit, Est Pt., Level 3 CPT-4 [id number] Jul 14, 2016 Vital Signs Date/Time: Jul 14, 2016 Cardiac Monitoring Heart Rate 68 bpm Weight 103.4 lbs Height 60 in BMI 20.19 Index Blood Pressure Diastolic 78 mmHg Blood Pressure Systolic 118 mmHg Results No Known Results Summary Purpose eClinicalWorks Submission
--- OUTSIDE RECORDS SUMMARY | 2018-04-19 17:08 | XMS REPORT ---
Author Author ABBY BENAVIDES 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 354788376 Problem Allergy, initial encounter T78.40XA Active 910669918 Problem Depressive disorder, not elsewhere classified F32.9 Active 95318839 Problem Posttraumatic stress disorder F43.10 Active 78562821 Problem Depressive disorder F32.9 Active 80103763 Problem 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 Active 168134532 Problem Lumbar radiculopathy M54.16 Active 357234082 Problem Post traumatic stress disorder F43.10 Active 05741037 Problem Scoliosis M41.9 Active 064646197 Problem Diarrhea, unspecified type R19.7 Active 55265733 Problem Reactive depression F32.9 Active 72158421 Problem Arthritis M19.90 Active 9464170 Problem Anxiety state, unspecified F41.1 Active 225249865 ALLERGIES Substance Reaction Event Type Date Status Zoloft diarrhea Drug Allergy March, Active Lomotil syncope Drug Allergy March, Active Chantix Unknown Drug Allergy March, Active Buspirone 15 Mg Tablet headaches Non Drug Allergy March, Active Meloxicam 15 Mg Tablet bloody emesis Non Drug Allergy March, Active SOCIAL HISTORY Never Assessed PLAN OF CARE Activity Details Follow Up 6 Months Reason: VITAL SIGNS Height 60 in 2017-04-09 Weight 116.8 lbs 2017-04-09 Temperature 98.4 degrees Fahrenheit 2017-04-09 Heart Rate 68 bpm 2017-04-09 Respiratory Rate 18 2017-04-09 BMI 22.81 kg/m2 2017-04-09 Blood pressure systolic 117 mmHg 2017-04-09 Blood pressure diastolic 83 mmHg 2017-04-09 MEDICATIONS Medication Instructions Dosage Frequency Start Date End Date Duration Status Celexa 20 MG Orally Once a day 1 24h Nov, 30 day(s) Active Amitriptyline HCl 50 MG Orally Once a day 1 24h March, 30 days Active amitriptyline 50 mg by oral route Once a day take 1 tablet (100 mg) by oral route once daily at bedtime 24h Oct, Sep, 30 days Active Omeprazole 20 mg take 1 capsule (20 mg) by oral route once daily before a meal Nov, Active Prazosin HCl 1 MG Orally Once a day 1 capsule at bedtime 24h Nov, 30 days Active Neurontin 600 MG 1 Tablet 3 times per day for pain 8h 30 Active Mobic 15 mg Orally Once a day, pc 1 tablet March, Jul, 30 day(s) Active RESULTS No Results PROCEDURES [...] History childbirth Hospitalization History [facility] 11/16/2016 Hospitalization History [facility] 11/17/2016 Hospitalization History inpatient treatment for substance use
--- OUTSIDE RECORDS SUMMARY | 2018-04-19 17:08 | XMS REPORT ---
Author Author ABBY BENAVIDES [facility] Address [address] [place] [address] Care Team Providers Care Digital Controls Technical Officer Name Role Phone ABBY BENAVIDES Unavailable PROBLEMS Type Condition ICD9-CM Code [id number] Code Onset Dates Condition Status SNOMED Code Problem Reactive depression F32.9 Active 00638588 Problem Diarrhea, unspecified type R19.7 Active 84853888 Problem Scoliosis M41.9 Active 549477644 Problem Arthritis M19.90 Active 6069051 ALLERGIES Unknown Allergies SOCIAL HISTORY No smoking Hx information available PLAN OF CARE VITAL SIGNS MEDICATIONS Medication Instructions Dosage Frequency Start Date End Date Duration Status Neurontin 600 MG 1 Tablet 3 times per day for pain 8h 30 Active Zoloft 50 mg Orally Once a day 1.5 Tablet by Oral route 1 time per day 24h Nov, Active RESULTS No Results PROCEDURES No Known procedures IMMUNIZATIONS No Known Immunizations
--- OUTSIDE RECORDS SUMMARY | 2018-04-19 17:08 | XMS REPORT ---
Author Author ABBY BENAVIDES [facility] Address [address] [place] [address] Care Team Providers Care Perch Mender Name Role Phone ABBY BENAVIDES Unavailable PROBLEMS Type Condition ICD9-CM Code [id number] Code Onset Dates Condition Status SNOMED Code Problem Diarrhea, unspecified type R19.7 Active 13390281 Problem Anxiety state, unspecified F41.1 Active 819711136 Problem Reactive depression F32.9 Active 16796352 Problem Arthritis M19.90 Active 9541903 Problem Scoliosis M41.9 Active 920533675 Problem Post traumatic stress disorder F43.10 Active 48534238 Problem 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 Active 016762182 Problem Allergy, initial encounter T78.40XA Active 843709635 Problem Affective disorder F39 Active 95518100 Problem Depressive disorder F32.9 Active 78828172 Problem Amphetamine dependence, 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 617498847 ALLERGIES Substance Reaction Event Type Date Status Zoloft diarrhea Drug Allergy Nov, Active Lomotil syncope Drug Allergy Nov, Active Chantix Unknown Drug Allergy Nov, Active Buspirone 15 Mg Tablet Unknown Non Drug Allergy Nov, Active Meloxicam 15 Mg Tablet bloody emesis Non Drug Allergy Nov, Active SOCIAL HISTORY No smoking Hx information available PLAN OF CARE Activity Details Follow Up appt in 3 wk Reason: VITAL SIGNS Height 60 in 2016-12-01 Weight 107.7 lbs 2016-12-01 Temperature 97.3 degrees Fahrenheit 2016-12-01 Heart Rate 80 bpm 2016-12-01 Respiratory Rate 16 2016-12-01 BMI 21.03 kg/m2 2016-12-01 Blood pressure systolic 104 mmHg 2016-12-01 Blood pressure diastolic 70 mmHg 2016-12-01 MEDICATIONS Medication Instructions Dosage Frequency Start Date End Date Duration Status Celexa 20 MG Orally Once a day 1 24h Nov, 30 day(s) Active Naproxen 500 MG take 1 tablet by Oral route 2 times per day with food take w food 12h 30 Active Elavil 50 mg Orally Once a day 1 tablet 24h 15 Jun, 2016 Active Neurontin 600 MG 1 Tablet 3 times per day for pain 8h 30 Active RESULTS No Results PROCEDURES Procedure Date Ordered Related Diagnosis Body Site Office Visit, Est Pt., Level 3 Dec 01, 2016 IMMUNIZATIONS No Known Immunizations
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
== END 2018-04-18 21:52 | disposition home or self-care (01) ==
LOC: EDUNIT# 20:23 → ER 20:24
DX: J32.9 Chronic sinusitis, unspecified (principal); J02.9 Acute pharyngitis, unspecified; H66.93 Otitis media, unspecified, bilateral; J45.909 Unspecified asthma, uncomplicated; G62.9 Polyneuropathy, unspecified; F41.9 Anxiety disorder, unspecified; F43.10 Post-traumatic stress disorder, unspecified; F32.9 Major depressive disorder, single episode, unspecified; B19.20 Unspecified viral hepatitis C without hepatic coma; F12.90 Cannabis use, unspecified, uncomplicated; F14.90 Cocaine use, unspecified, uncomplicated; F15.90 Other stimulant use, unspecified, uncomplicated; F17.210 Nicotine dependence, cigarettes, uncomplicated; Z87.42 Personal history of other diseases of the female genital tract; Z88.6 Allergy status to analgesic agent; Z90.49 Acquired absence of other specified parts of digestive tract; Z82.49 Family history of ischemic heart disease and other diseases of the circulatory system
CPT/HCPCS: 87430; 99283

== ENCOUNTER 2018-04-23 12:02 | Day surgery (SDC) | payer MEDICAID ==
[~2018-04-23] VITALS: Ht 152.4 cm; Wt 53.5 kg
[~2018-04-23 12:02] MED LIST changes: +AMOX-358 PO; +FLUT9.9S NS; +LORA1TAB59 PO; +METH4TAB PO
[2018-04-23 12:20] VITALS: BP 128/77
[2018-04-23] MEDS ORDERED: NS IV 500 ML 500 ML IV PRN (12:30)
[2018-04-23] MEDS ORDERED: NS IV 500 ML 500 ML ONE (12:41)
[2018-04-23] MEDS ORDERED: LIDOCAINE JELLY 2% (XYLOCAINE) 5 ML TUBE ONE (13:28)
[2018-04-23] MEDS ORDERED: fentaNYL INJECTION 100 MCG/2 ML AMP ONE ×2 (13:28→15:22)
[2018-04-23] MEDS ORDERED: MIDAZOLAM 2 MG/2 ML (VERSED) VIAL ONE ×9 (13:29→15:13)
[2018-04-23 13:44] LABS: AMPHETAMINE SCREEN, URINE NEGATIVE (NEGATIVE); BARBITURATE SCREEN URINE NEGATIVE (NEGATIVE); BENZODIAZEPINES SCREEN URINE NEGATIVE (NEGATIVE); CANNABINOID SCREEN, URINE NEGATIVE (NEGATIVE); COCAINE SCREEN URINE NEGATIVE (NEGATIVE); METHADONE STAT NEGATIVE (NEGATIVE); METHAMPHETAMINE SCREEN URINE S NEGATIVE (NEGATIVE); OPIATE SCREEN URINE NEGATIVE (NEGATIVE); OXYCODONE STAT NEGATIVE (NEGATIVE); PROPOXYPHENE STAT NEGATIVE (NEGATIVE); TRICYCLIC ANTIDEPRESSANTS SCRE NEGATIVE (NEGATIVE)
[2018-04-23] MEDS: MIDAZOLAM 2 MG/2 ML (VERSED) VIAL IVP PRN ×8 (14:57→15:27)
[2018-04-23] MEDS: fentaNYL INJECTION 100 MCG/2 ML AMP IVP PRN ×4 (15:10→15:28)
--- NOTE | 2018-04-23 15:35 | Conscious Sedation/ASA ---
Conscious Sedation Pre-Proced Time Reviewed: 12:00 ASA Class: 2 Airway Mallampati Classification: ([place] appropriate class) I. II. III, IV Lungs Heart ASA score ASA 1: a normal healthy patient ASA 2: a patient with a mild systemic disease (mid diabetes, controlled hypertension, obesity ASA 3: a patient with a severe systemic disease that limits activity (angina , COPD, prior Myocardial infarction) ASA 4: a patient with an incapacitating disease that is a constant threat to life (CHF, renal failure) ASA 5: a moribund patient not expected to survive 24 hrs. (ruptured aneurysm) ASA 6: a declared brain patient whose organs are being harvested. For emergent operations, add the letter E after the classification Grade 2 Sedation Plan: Analgesia, Amnesia, Plan communicated to team members, Discussed options with patient/fam, Discussed risks with patient/fam Note The patient is an appropriate candidate to undergo the planned procedure, sedation, and anesthesia. The patient immediately re-assessed prior to indication. VENKAT DONALDSON MD April 23, 2018 3:35 pm
--- NOTE | 2018-04-23 15:36 | Progress Note-Pre Operative ---
Pre-Operative Progress Note H&P Reviewed The H&P was reviewed, patient examined and no changes noted. Date Seen by Provider: April 23, 2018 Time Seen by Provider: 12:00 Date H&P Reviewed: April 23, 2018 Time H&P Reviewed: 12:00 Pre-Operative Diagnosis: hx polyp, family hx VENKAT DONALDSON MD April 23, 2018 3:36 pm
--- NOTE | 2018-04-23 15:38 | Progress Note-Post Operative ---
Post-Operative Progess Note Surgeon (s)/Environmental Health Manager (s) Surgeon VENKAT DONALDSON MD Environmental Health Manager: none Pre-Operative Diagnosis hx polyp, family hx Post-Operative Diagnosis normal colon and rectum Procedure & Operative Findings Date of Procedure 04/23/18 Procedure Performed/Findings Colonoscopy. Anesthesia Type CS Estimated Blood Loss Estimated blood loss (mL): minimal Specimens/Packing Specimens Removed none VENKAT DONALDSON MD April 23, 2018 3:38 pm
--- NOTE | 2018-04-23 15:39 | Discharge Inst-Surgical ---
D/C Lap Instructions-ANIKA Follow Up 5 years Activity as tolerated High Fiber Diet 25g or more per day Avoid Alcohol, Caffeine, Spicy [place] and Acid foods. Drink 64 fluid oz or more of fluids per day. Symptoms to Report: Fever over 101 degree F, Nausea/Vomiting If any problems/questions: Contact your physician or go to Emergency Room VENKAT DONALDSON MD April 23, 2018 3:39 pm
[2018-04-23] MEDS ORDERED: LIDOCAINE JELLY 2% (XYLOCAINE) 5 ML TUBE TOP ONE (15:45)
[2018-04-23] MEDS ORDERED: ONDANSETRON 4 MG/2 ML (SDV) Z0FRAN IV PRN (15:45)
[2018-04-23] MEDS ORDERED: HYDROcodone/APAP 5 MG/325 MG (LORTAB) TAB PO PRN (15:45)
[2018-04-23] MEDS ORDERED: morphine INJ 10 MG/ML 1ML (SYR OR VIAL) IV PRN (15:45)
[2018-04-23] MEDS ORDERED: ACETAMINOPHEN 325 MG TABLET/CAPLET (TYLENOL) PO PRN (15:45)
[2018-04-23 16:25] VITALS: BP 118/83
[2018-04-23 16:30] VITALS: BP 118/83
[2018-04-23 16:31] VITALS: BP 111/83
[2018-04-23] MEDS ORDERED: TRAM50TA2 PO (20:09)
[2018-04-23] MEDS ORDERED: ONDA4TAB11 PO (20:09)
[2018-04-23] MEDS ORDERED: ACET-2267 PO (20:16)
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
== END 2018-04-23 16:30 | disposition home or self-care (01) ==
LOC: ENDO 12:02
PROVIDERS: ATTEND Surgery
DX: Z12.11 Encounter for screening for malignant neoplasm of colon (principal); Z86.010 Personal history of colon polyps; Z80.0 Family history of malignant neoplasm of digestive organs
CPT/HCPCS: 80306; 84703

== ENCOUNTER 2018-04-23 18:39 | Emergency (ER) | payer MEDICAID ==
[~2018-04-23] VITALS: Ht 154.9 cm; Wt 54.4 kg
[2018-04-23 19:20] LABS: BASOPHILS % (AUTO) 0 % (0-10); EOSINOPHILS % (AUTO) 0 % (0-10); HEMATOCRIT 44 % (35-52); HEMOGLOBIN 15.6 G/DL (11.5-16.0); LYMPHOCYTES # (AUTO) 3.2 X 10^3 (1.0-4.0); LYMPHOCYTES % (AUTO) 32 % (12-44); MEAN CORPUSCULAR HEMOGLOBIN 32 PG (25-34); MEAN CORPUSCULAR HGB CONC 35 G/DL (32-36); MEAN CORPUSCULAR VOLUME 92 FL (80-99); MEAN PLATELET VOLUME 10.1 FL (7.4-10.4); MONOCYTES # (AUTO) 0.7 X 10^3 (0.0-1.0); MONOCYTES % (AUTO) 7 % (0-12); NEUTROPHILS # (AUTO) 6.2 X 10^3 (1.8-7.8); NEUTROPHILS % (AUTO) 61 % (42-75); PLATELET COUNT 366 10^3/uL (130-400); RED BLOOD COUNT 4.83 10^6/uL (4.35-5.85); RED CELL DISTRIBUTION WIDTH 13.5 % (10.0-14.5); WHITE BLOOD COUNT 10.1 10^3/uL (4.3-11.0)
[2018-04-23 19:39] LABS: BILIRUBIN,URINE NEGATIVE (NEGATIVE); CLARITY,URINE CLEAR; COLOR,URINE YELLOW; GLUCOSE, URINE (UA) NEGATIVE (NEGATIVE); KETONES,URINE NEGATIVE (NEGATIVE); LEUKOCYTE ESTERASE ,URINE 1+ (NEGATIVE); NITRITE,URINE NEGATIVE (NEGATIVE); PH,URINE 8 (5-9); PROTEIN,URINE NEGATIVE (NEGATIVE); UROBILINOGEN,URINE NORMAL (NORMAL)
[2018-04-23 19:39] LABS: ALANINE AMINOTRANSFERASE 9 U/L (0-55); ALBUMIN 4.6 GM/DL (3.2-4.5); ALKALINE PHOSPHATASE 68 U/L (40-136); BILIRUBIN,TOTAL 0.5 MG/DL (0.1-1.0); BUN/CREATININE RATIO 9; CALCIUM 9.6 MG/DL (8.5-10.1); CARBON DIOXIDE 24 MMOL/L (21-32); CHLORIDE 105 MMOL/L (98-107); CREATININE SERUM 0.85 MG/DL (0.60-1.30); GFR ESTIMATED > 60; GLUCOSE 105 MG/DL (70-105); POTASSIUM 3.9 MMOL/L (3.6-5.0); SODIUM 140 MMOL/L (135-145); TOTAL PROTEIN 7.4 GM/DL (6.4-8.2)
[2018-04-23] MEDS: NS 250 ML (IVPB) BAG IV ONE (19:44)
[2018-04-23] MEDS: IOHEXOL 350 MG/ML 100 ML (OMNIPAQUE 350) VIAL IV ONE (19:44)
--- NOTE | 2018-04-23 19:45 | ED Abdominal Pain ---
General Chief Complaint: Abdominal/GI Problems Stated Complaint: SHARP PAINS IN SIDE HAD COLONOSCOPY TODAY Nursing Triage Note: abdominal cramping/bloating s/p colonoscopy 04/26/18 Sepsis Screen: No Definite Risk Source of Information: Patient Exam Limitations: No Limitations History of Present Illness Date Seen by Provider: April 23, 2018 Time Seen by Provider: 19:30 Initial Comments The patient presents to the ER by private conveyance with a chief complaint she is having some abdominal pain. She had a colonoscopy recently by Dr. Muro and Jina advised her to come to the ER to get checked out for free air.: She was done this morning. Shortly after she woke up started having some sharp abdominal pain in her right lower and left lower quadrants. She has not passed a bowel movement today nor she pass any gas. She has not had any nausea vomiting or belching. Allergies and Home Medications Allergies Coded Allergies: bupropion (Verified Allergy, Mild, H/A, 04/14/18) prazosin (Verified Allergy, Mild, SYNCOPE, 04/14/18) sertraline (Verified Allergy, Mild, H/A, 04/14/18) Home Medications Acetaminophen 500 Mg Tablet, 1,000 MG PO TID, (Reported) Albuterol Sulfate 1 Puff Puff, 2 PUFF IH Q4H PRN for SHORTNESS OF BREATH, ( Reported) 1 PUFF = 90 MCG Amoxicillin/Potassium Clav 1 Each Tablet, 1 EACH PO BID Prescribed by: NY DUONG on 04/18/182124 Fluticasone Propionate 9.9 Ml [place].susp, 2 SPRAYS NS BID Prescribed by: NY DUONG on 04/18/182124 Gabapentin 600 Mg Tablet, 600 MG PO TID PRN for PAIN, (Reported) Loratadine/Pseudoephedrine 1 Each Tab.er.12h, 1 EACH PO BID Prescribed by: NY DUONG on 04/18/182124 Methylprednisolone 4 Mg Tab.ds.pk, 4 MG PO UD Prescribed by: NY DUONG on 04/18/182124 Patient Home Medication List Home Medication List Reviewed: Yes Review of Systems Constitutional: No chills, No diaphoresis EENTM: No Blurred Vision, No Double Vision Respiratory: Denies Cough, Denies Shortness of Air Cardiovascular: Denies Chest Pain, Denies Edema, Denies Lightheadedness, Denies Syncope Gastrointestinal: Abdomen Distended, Abdominal Pain; Denies Constipated Genitourinary: Denies Burning, Denies Discharge, Denies Flank Pain Musculoskeletal: No joint pain, No joint swelling Skin: No pruritus, No rash Psychiatric/Neurological: Denies Headache, Denies Numbness Past Jyoynvv-Flbixh-Yipuyo Hx Patient Social History Alcohol Use: Denies Use Number of Drinks Today: AA Alcohol Beverage of Choice: Beer Recreational Drug Use: Yes (hx) Drug of Choice: THC, + IV CRACK COCAINE, OPIODS Smoking Status: Current Everyday Smoker Type Used: Cigarettes 2nd Hand Smoke Exposure: Yes Recent Foreign Travel: No Contact w/Someone Who Travel: No Recent Infectious Disease Expo: No Recent Hopitalizations: No Immunizations Up To Date Tetanus Booster (TDap): Less than 5yrs Date of Influenza Vaccine: Dec 09, 2013 Seasonal Allergies Seasonal Allergies: Yes Past Medical History Surgeries: Yes (colonoscopy) Appendectomy Respiratory: Yes Asthma Cardiac: Yes Irregular Heartbeat, Palpitations Neurological: Yes Neuropathy : No Reproductive Disorders: Yes Female Reproductive Disorders: Ovarian Cyst Sexually Transmitted Disease: No HIV/AIDS: No Genitourinary: No Gastrointestinal: Yes (HEPATITIS C--S/P TREATMENT) Chronic Diarrhea, Hepatitis, Polyps Musculoskeletal: Yes (CARPAL TUNNEL SYMPTOMS) Arthritis, Chronic Back Pain Endocrine: No HEENT: Yes (POOR DENTITION, NASAL FRACTURE) Loss of Vision: Bilateral Hearing Impairment: Denies Cancer: No Psychosocial: Yes (SUBSTANCE ABUSE-ETOH (NOTHING IN 2YRS)) Anxiety, PTSD, Depression Integumentary: No Blood Disorders: No Adverse Reaction/Blood Tranf: No (N/A) Family Medical History Cancer 03 FATHER (LUNG) Family history: Cardiovascular disease 03 MOTHER (X4 STENTS) Physical Exam Vital Signs Vital Signs - First Documented 04/23/18 19:05 Temp 97.0 Pulse 66 Resp 18 B/P (MAP) 112/67 (82) Pulse Ox 98 O2 Delivery Room Air Capillary Refill : Less Than 3 Seconds General Appearance: WD/WN, no apparent distress HEENT: PERRL/EOMI, pharynx normal Neck: non-tender, normal inspection Respiratory: chest non-tender, lungs clear, normal breath sounds, no respiratory distress, no accessory muscle use Cardiovascular: normal peripheral pulses, regular rate, rhythm, no murmur Peripheral Pulses: 2+ Radial Pulses (R), 2+ Radial Pulses (L) Gastrointestinal: abnormal bowel sounds (hypoactive but present in all 4 quads) , guarding, tenderness (BLQ) Extremities: no pedal edema, no calf tenderness, normal capillary refill Neurologic/Psychiatric: alert, oriented x 3 Skin: normal color, warm/dry Progress/Results/Core Measures Results/Orders Lab Results Laboratory Tests Test 04/23/18 19:10 04/23/18 19:34 Range/Units White Blood Count 10.1 4.3-11.0 10^3/uL Red Blood Count 4.83 4.35-5.85 10^6/uL Hemoglobin 15.6 11.5-16.0 G/DL Hematocrit 44 35-52 % Mean Corpuscular Volume 92 80-99 FL Mean Corpuscular Hemoglobin 32 25-34 PG Mean Corpuscular Hemoglobin Concent 35 32-36 G/DL Red Cell Distribution Width 13.5 10.0-14.5 % Platelet Count 366 130-400 10^3/uL Mean Platelet Volume 10.1 7.4-10.4 FL Neutrophils (%) (Auto) 61 42-75 % Lymphocytes (%) (Auto) 32 12-44 % Monocytes (%) (Auto) 7 0-12 % Eosinophils (%) (Auto) 0 0-10 % Basophils (%) (Auto) 0 0-10 % Neutrophils # (Auto) 6.2 1.8-7.8 X 10^3 Lymphocytes # (Auto) 3.2 1.0-4.0 X 10^3 Monocytes # (Auto) 0.7 0.0-1.0 X 10^3 Eosinophils # (Auto) 0.0 0.0-0.3 10^3/uL Basophils # (Auto) 0.0 0.0-0.1 10^3/uL Sodium Level 140 135-145 MMOL/L Potassium Level 3.9 3.6-5.0 MMOL/L Chloride Level 105 98-107 MMOL/L Carbon Dioxide Level 24 21-32 MMOL/L Anion Gap 11 5-14 MMOL/L Blood Urea Nitrogen 8 7-18 MG/DL Creatinine 0.85 0.60-1.30 MG/DL Estimat Glomerular Filtration Rate > 60 BUN/Creatinine Ratio 9 Glucose Level 105 70-105 MG/DL Calcium Level 9.6 8.5-10.1 MG/DL Total Bilirubin 0.5 0.1-1.0 MG/DL Aspartate Amino Transf (AST/SGOT) 11 5-34 U/L Alanine Aminotransferase (ALT/SGPT) 9 0-55 U/L Alkaline Phosphatase 68 40-136 U/L Total Protein 7.4 6.4-8.2 GM/DL Albumin 4.6 H 3.2-4.5 GM/DL Urine Color YELLOW Urine Clarity CLEAR Urine pH 8 5-9 Urine Specific [place] 1.010 L 1.016-1.022 Urine Protein NEGATIVE NEGATIVE Urine Glucose (UA) NEGATIVE NEGATIVE Urine Ketones NEGATIVE NEGATIVE Urine Nitrite NEGATIVE NEGATIVE Urine Bilirubin NEGATIVE NEGATIVE Urine Urobilinogen NORMAL NORMAL MG/DL Urine Leukocyte Esterase 1+ H NEGATIVE Urine RBC (Auto) NEGATIVE NEGATIVE Urine RBC NONE /HPF Urine WBC 2-5 /HPF Urine Squamous Epithelial Cells 10-25 H /HPF Urine Crystals NONE /LPF Urine Bacteria TRACE /HPF Urine Casts NONE /LPF Urine Mucus NEGATIVE /LPF Urine Culture Indicated NO My Orders Orders - ARLEEN GATICA Cbc With Automated Diff (04/23/18 18:56) Comprehensive Metabolic Panel (04/23/18 18:56) Ua Culture If Indicated (04/23/18 18:56) Ct Abdomen/Pelvis W (04/23/18 18:56) Saline Lock/Iv-Start (04/23/18 18:56) Ns Iv 1000 Ml (Sodium Chloride 0.9%) (04/23/18 18:56) Iohexol Injection (Omnipaque 350 Mg/Ml 1 (04/23/18 19:30) Ns (Ivpb) (Sodium Chloride 0.9%) (04/23/18 19:30) Pharmacy Communication (Pharmacy Communi (04/23/18 19:24) Fentanyl Injection (Sublimaze Injection (04/23/18 20:15) Medications Given in ED Current Medications Medications Dose Ordered Sig/Piter Route Start Time Stop Time Status Last Admin Dose Admin Iohexol 100 ml ONCE ONCE IV 04/23/18 19:30 04/23/18 19:31 DC 04/23/18 19:44 75 ML Sodium Chloride 250 ml ONCE ONCE IV 04/23/18 19:30 04/23/18 19:31 DC 04/23/18 19:44 80 ML Vital Signs/I&O 04/23/18 19:05 Temp 97.0 Pulse 66 Resp 18 B/P (MAP) 112/67 (82) Pulse Ox 98 O2 Delivery Room Air Blood Pressure Mean: 82 Progress Progress Note #1: Time: 19:43 Progress Note We will give her a liter of fluids and get a CT abdomen pelvis with contrast. We 'll obtain some blood work and urinalysis as well. Taking about a differential for abdominal pain after colonoscopy could be perforation versus urinary tract infection versus diverticulitis etc. Procedure was performed today by Dr. Muro for history of polyp and family history. She had a normal colon and rectum per notes with minimal EBL. Progress Note #2: Time: 20:06 Progress Note There is no free air or fluid indicate a bowel perforation. She does have some air-fluid levels and some distended loops of bowel which are consistent with recently having colonoscopy. She probably has an ileus. She needs to walk around , have a bowel movement and chew gum. We've discussed the case and imaging with Dr. Smith. He agrees with Pain Management and to the home if she can tolerate it. Diagnostic Imaging Diagonstic Imaging: CT (c/c) Plain Films/CT/US/NM/MRI: abdomen, pelvis Comments NAME: NICOLE GIBBS Rob [facility] REC#: [id number] PHYSICIAN: ARLEEN GATICA MD CC: PADMINI DELVALLE MD; ARLEEN GATICA Page 1 of 1 RADIOLOGY REPORT VIA [facility] [place], [place] CC: PADMINI DELVALLE MD; ARLEEN GATICA Page 1 of 1 RADIOLOGY REPORT NAME: GLORIA GIBBSA Rob [facility] REC#: [id number] PT STATUS: REG ER : 1970 PHYSICIAN: ARLEEN GATICA MD ADMIT DATE: 04/23/18/ER Signed Date of Exam: 04/23/18 CT ABDOMEN/PELVIS W PROCEDURE: CT abdomen and pelvis with contrast. TECHNIQUE: Multiple contiguous axial images were obtained through the abdomen and pelvis after administration of intravenous contrast. INDICATION: Had a colonoscopy earlier in the day. Has developed sharp abdominal pain. FINDINGS: The liver, gallbladder and bile ducts are normal. The spleen, pancreas and adrenals are normal. The kidneys, ureters and bladder are normal. No acute bowel abnormality is seen. There is no intramural or free intraperitoneal air. There is no free fluid. IMPRESSION: No acute abnormality is seen. Dictated by: Dictated on workstation # [id number] Dict: 04/23/181950 Trans: 04/23/181954 Interpreted by: PADMINI DELVALLE MD Electronically signed by: PADMINI DELVALLE MD 04/23/181954 Reviewed: Reviewed by Me Departure Impression Primary Impression: Ileus Disposition: HOME, SELF-CARE Condition: Improved Departure-Patient Inst. Decision time for Depature: 20:07 Referrals: ABBY BENAVIDES MD (PCP/Family) Primary Care Physician Patient Instructions: Postoperative Ileus (DC) Add. Discharge Instructions: Your bowels will return to normal function the more you get up and move around. You can chew some chewing gum and walk around. You can use Tylenol 1000 mg in addition to ibuprofen 800 mg every 8 hours. If this is not helping you can also use the tramadol 1 tablet every 6 hours. Warm heating pads or baths can be helpful. This should pass when when you're bowels start moving again. If you have worsening symptoms fever, nausea and vomiting then you should return to the ER. For mild nausea you can use one tablet of Zofran every 6 hours as needed. All discharge instructions reviewed with patient and/or family. Voiced understanding. Scripts Acetaminophen (Tylenol Extra Strength) 500 Mg Tablet 1000 MG PO Q8H PRN for PAIN-MILD TO MODERATE for 30 Days, #60 TAB 0 Refills Prov: ARLEEN GATICA 04/23/18 Ondansetron (Ondansetron Odt) 4 Mg Tab.rapdis 4 MG PO Q6H PRN for NAUSEA/VOMITING, #8 TAB 0 Refills Prov: ARLEEN GATICA 04/23/18 Tramadol HCl (Tramadol HCl) 50 Mg Tablet 50 MG PO Q6H PRN for PAIN, #20 TAB 0 Refills Prov: ARLEEN GATICA 04/23/18 Copy Copies To 1: OMAR CHAVEZ TITUS J April 23, 2018 19:45
[2018-04-23] MEDS: NS IV 1000 ML 1,000 ML IV SCH (19:49)
[2018-04-23 19:53] LABS: BACTERIA,URINE TRACE /HPF
--- NOTE | 2018-04-23 19:54 | Diagnostic Imaging Report ---
PROCEDURE: CT abdomen and pelvis with contrast. TECHNIQUE: Multiple contiguous axial images were obtained through the abdomen and pelvis after administration of intravenous contrast. INDICATION: Had a colonoscopy earlier in the day. Has developed sharp abdominal pain. FINDINGS: The liver, gallbladder and bile ducts are normal. The spleen, pancreas and adrenals are normal. The kidneys, ureters and bladder are normal. No acute bowel abnormality is seen. There is no intramural or free intraperitoneal air. There is no free fluid. IMPRESSION: No acute abnormality is seen. Dictated by: Dictated on workstation # [id number]
[2018-04-23] MEDS ORDERED: ONDA4TAB11 PO (20:09)
[2018-04-23] MEDS ORDERED: TRAM50TA2 PO (20:09)
[2018-04-23] MEDS ORDERED: fentaNYL INJECTION 100 MCG/2 ML AMP IVP ONE (20:15)
[2018-04-23] MEDS ORDERED: ACET-2267 PO (20:16)
[2018-04-23] MEDS: KETOROLAC 30 MG/ML VIAL IVP ONE (20:32)
[2018-04-23 20:33] VITALS: BP 116/69
== END 2018-04-23 20:33 | disposition home or self-care (01) ==
LOC: EDUNIT# 18:39 → ER 18:40
DX: K56.7 Ileus, unspecified (principal); J45.909 Unspecified asthma, uncomplicated; F41.9 Anxiety disorder, unspecified; F43.10 Post-traumatic stress disorder, unspecified; F32.9 Major depressive disorder, single episode, unspecified; F12.90 Cannabis use, unspecified, uncomplicated; F14.90 Cocaine use, unspecified, uncomplicated; F11.90 Opioid use, unspecified, uncomplicated; F17.210 Nicotine dependence, cigarettes, uncomplicated; Z87.42 Personal history of other diseases of the female genital tract; Z87.19 Personal history of other diseases of the digestive system; Z90.49 Acquired absence of other specified parts of digestive tract; Z79.51 Long term (current) use of inhaled steroids; Z88.8 Allergy status to other drugs, medicaments and biological substances
CPT/HCPCS: 36415; 74177; 80053; 81000; 85025; 96361; 96374

== ENCOUNTER 2018-05-01 20:07 | Emergency (ER) | payer MEDICAID ==
[~2018-05-01] VITALS: Ht 154.9 cm; Wt 58.1 kg
[~2018-05-01 20:07] MED LIST changes: +ONDA4TAB11 PO; +TRAM50TA2 PO
[2018-05-01 20:23] VITALS: BP 119/86
--- NOTE | 2018-05-01 22:09 | ED General ---
General Chief Complaint: Allergic Reaction Stated Complaint: PT FEELS HIGH AND DOESNT FEEL NORMAL (MEDICATION) Nursing Triage Note: PT REPORTS SHE BELIEVES SHE IS HAVING AN ADVERSE RXN TO MEDS. STATES SHE'S " NOT FEELING WELL". DENIES STARTING ANY NEW MEDS. Nursing Sepsis Screen: No Definite Risk Source of Information: Patient (PARVINMAI STUDENT) History of Present Illness Date Seen by Provider: May 01, 2018 Time Seen by Provider: 22:04 Initial Comments Patient to the emergency room with complaints of a period of hand shaking this evening. Patient says she has a significant past medical history of anxiety and PTSD. The shaking has since stopped and she is feeling much more relaxed at this time. She states that her doctor at [facility] has been trying to get her medication straight and has recently stopped taking Neurontin. Timing/Duration: 1-3 Hours Severity: Mild Associated Systoms: No Chest Pain, No Cough, No Diaphoresis, No Fever/Chills ( MAI GARCIA STUDENT) Allergies and Home Medications Allergies Coded Allergies: bupropion (Verified Allergy, Mild, H/A, 04/14/18) prazosin (Verified Allergy, Mild, SYNCOPE, 04/14/18) sertraline (Verified Allergy, Mild, H/A, 04/14/18) Home Medications Acetaminophen 500 Mg Tablet, 1,000 MG PO TID, (Reported) Acetaminophen 500 Mg Tablet, 1,000 MG PO Q8H PRN for PAIN-MILD TO MODERATE Prescribed by: ARLEEN GATICA on 04/23/182015 Albuterol Sulfate 1 Puff Puff, 2 PUFF IH Q4H PRN for SHORTNESS OF BREATH, ( Reported) 1 PUFF = 90 MCG Amoxicillin/Potassium Clav 1 Each Tablet, 1 EACH PO BID Prescribed by: [place] DUONG on 04/18/182124 Fluticasone Propionate 9.9 Ml [place].susp, 2 SPRAYS NS BID Prescribed by: NY DUONG on 04/18/182124 Gabapentin 600 Mg Tablet, 600 MG PO TID PRN for PAIN, (Reported) Loratadine/Pseudoephedrine 1 Each Tab.er.12h, 1 EACH PO BID Prescribed by: [place] DUONG on 04/18/182124 Methylprednisolone 4 Mg Tab.ds.pk, 4 MG PO UD Prescribed by: NY DUONG on 04/18/182124 Ondansetron 4 Mg Tab.rapdis, 4 MG PO Q6H PRN for NAUSEA/VOMITING Prescribed by: ALREEN GATICA on 04/23/182008 Tramadol HCl 50 Mg Tablet, 50 MG PO Q6H PRN for PAIN Prescribed by: ARLEEN GATICA on 04/23/182008 Patient Home Medication List Home Medication List Reviewed: Yes (MAI GARCIA STUDENT) Review of Systems Constitutional: see HPI; No dizziness, No fever, No malaise, No weakness EENTM: see HPI Respiratory: see HPI Cardiovascular: see HPI Gastrointestinal: see HPI Musculoskeletal: see HPI Skin: see HPI (or expiratory) Psychiatric/Neurological: See HPI, Anxiety, Emotional Problems, Tremors Hematologic/Lymphatic: See HPI Immunological/Allergic: see HPI (MAI GARCIA STUDENT) All Other Systems Reviewed Negative Unless Noted: Yes (MAI GARCIA STUDENT) Past Xjmutbx-Garuku-Ctdovl Hx Past Med/Social Hx: Reviewed Nursing Past Med/Soc Hx (MAI GARCIA STUDENT) Patient Social History Alcohol Use: Denies Use Number of Drinks Today: AA Alcohol Beverage of Choice: Beer Recreational Drug Use: No Drug of Choice: THC, + IV CRACK COCAINE, OPIODS Smoking Status: Current Everyday Smoker Type Used: Cigarettes 2nd Hand Smoke Exposure: Yes Recent Foreign Travel: No Contact w/Someone Who Travel: No Recent Infectious Disease Expo: No Recent Hopitalizations: No (MAI GARCIA STUDENT) Immunizations Up To Date Tetanus Booster (TDap): Less than 5yrs Date of Influenza Vaccine: Dec 09, 2013 (MAI GARCIA STUDENT) Seasonal Allergies Seasonal Allergies: Yes (MAI GARCIA STUDENT) Past Medical History Surgeries: Yes (colonoscopy) Appendectomy Respiratory: Yes Asthma Cardiac: Yes Irregular Heartbeat, Palpitations Neurological: Yes Neuropathy Reproductive Disorders: Yes Female Reproductive Disorders: Ovarian Cyst Sexually Transmitted Disease: No HIV/AIDS: No Genitourinary: No Gastrointestinal: Yes (HEPATITIS C--S/P TREATMENT) Chronic Diarrhea, Hepatitis, Polyps Musculoskeletal: Yes (CARPAL TUNNEL SYMPTOMS) Arthritis, Chronic Back Pain Endocrine: No HEENT: Yes (POOR DENTITION, NASAL FRACTURE) Loss of Vision: Bilateral Hearing Impairment: Denies Cancer: No Psychosocial: Yes (SUBSTANCE ABUSE-ETOH (NOTHING IN 2YRS)) Anxiety, PTSD, Depression Integumentary: No Blood Disorders: No Adverse Reaction/Blood Tranf: No (N/A) (MAI GARCIA STUDENT) Family Medical History Reviewed Nursing Family Hx (MAI GARCIA STUDENT) Cancer 03 FATHER (LUNG) Family history: Cardiovascular disease 03 MOTHER (X4 STENTS) Physical Exam Vital Signs Vital Signs - First Documented 05/01/18 20:23 Temp 97.2 Pulse 90 Resp 18 B/P (MAP) 119/86 (97) Pulse Ox 96 O2 Delivery Room Air (BREANA BAKER MD) Vital Signs Capillary Refill : Less Than 3 Seconds (MAI GARCIA STUDENT) General Appearance: No Apparent Distress, WD/WN Eyes: Bilateral Eye Normal Inspection, Bilateral Eye PERRL, Bilateral Eye EOMI HEENT: PERRL/EOMI, TMs Normal, Normal ENT Inspection, Pharynx Normal, Moist Mucous Membranes Neck: Full Range of Motion, Normal Inspection, Non Tender, Supple Respiratory: Chest Non Tender, Lungs Clear, Normal Breath Sounds, No Accessory Muscle Use, No Respiratory Distress Cardiovascular: Regular Rate, Rhythm, No Edema, No Gallop, No JVD, No Murmur, Normal Peripheral Pulses Gastrointestinal: Normal Bowel Sounds, No Organomegaly, No Pulsatile Mass, Non Tender, Soft Rectal: Deferred Back: Normal Inspection, No CVA Tenderness, No Vertebral Tenderness Extremity: Normal Capillary Refill, Normal Inspection, Normal Range of Motion, Non Tender, No Calf Tenderness Neurologic/Psychiatric: Alert, Oriented x3, Normal Mood/Affect, Other (during the exam patient appears to be much more relaxed. She states that she does have a significant history of anxiety and feels like she was having a panic attack causing her hands to shake this evening.) Skin: Normal Color, Warm/Dry Lymphatic: No Adenopathy (MAI GARCIA STUDENT) Progress/Results/Core Measures Suspected Sepsis Recent Fever Within 48 Hours: No Infection Criteria Present: None New/Unexplained Altered Menta: No Sepsis Screen: No Definite Risk SIRS Temperature:97.2 Pulse: 90 Respiratory Rate: 18 Blood Pressure 119 /86 Mean: 97 (MAI GARCIA STUDENT) Results/Orders Lab Results Laboratory Tests Test 05/01/18 22:23 Range/Units (BREANA BAKER MD) My Orders Orders - BREANA BAKER MD Ua Culture If Indicated (05/01/18 22:12) Drug Screen Stat (Urine) (05/01/18 22:12) (BREANA BAKER MD) Vital Signs/I&O 05/01/18 20:23 Temp 97.2 Pulse 90 Resp 18 B/P (MAP) 119/86 (97) Pulse Ox 96 O2 Delivery Room Air (BREANA BAKER MD) Vital Signs/I&O Capillary Refill : Less Than 3 Seconds (MAI GARCIA STUDENT) Blood Pressure Mean: 97 Progress Note : Progress Note Seen and evaluated and discussed with Mai Garcia APRN. Here with report of anxiety. Patient seen briefly but left AGAINST MEDICAL ADVICE prior to discharge instructions. Paperwork not given and discharge instructions are given as patient left. (BREANA BAKER MD) Departure Impression Primary Impression: Anxiety Additional Impression: Panic attack Disposition: Condition: Stable/Unchanged Departure-Patient Inst. Referrals: ABBY BENAVIDES MD (PCP/Family) Primary Care Physician Patient Instructions: Anxiety, Adult (DC) Add. Discharge Instructions: Take medication as directed. Follow up with Dr. Benavides within one week for a recheck. Return to the emergency room for chest pain, shortness of breath, dizziness, palpitations, nausea, vomiting, or any other concerns as needed. All discharge instructions reviewed with patient and/or family. Voiced understanding. MAI GARCIA STUDENT May 01, 2018 22:09 BREANA BAKER MD May 01, 2018 22:30
[2018-05-01 22:30] LABS: BILIRUBIN,URINE NEGATIVE (NEGATIVE); CLARITY,URINE CLEAR; COLOR,URINE YELLOW; GLUCOSE, URINE (UA) NEGATIVE (NEGATIVE); KETONES,URINE NEGATIVE (NEGATIVE); LEUKOCYTE ESTERASE ,URINE NEGATIVE (NEGATIVE); NITRITE,URINE NEGATIVE (NEGATIVE); PH,URINE 5 (5-9); PROTEIN,URINE NEGATIVE (NEGATIVE); UROBILINOGEN,URINE NORMAL (NORMAL)
[2018-05-01 22:42] LABS: AMPHETAMINE SCREEN, URINE NEGATIVE (NEGATIVE); BARBITURATE SCREEN URINE NEGATIVE (NEGATIVE); BENZODIAZEPINES SCREEN URINE NEGATIVE (NEGATIVE); CANNABINOID SCREEN, URINE NEGATIVE (NEGATIVE); COCAINE SCREEN URINE NEGATIVE (NEGATIVE); METHADONE STAT NEGATIVE (NEGATIVE); METHAMPHETAMINE SCREEN URINE S NEGATIVE (NEGATIVE); OPIATE SCREEN URINE NEGATIVE (NEGATIVE); OXYCODONE STAT NEGATIVE (NEGATIVE); PROPOXYPHENE STAT NEGATIVE (NEGATIVE); TRICYCLIC ANTIDEPRESSANTS SCRE NEGATIVE (NEGATIVE)
== END 2018-05-01 22:25 | disposition left against medical advice (07) ==
LOC: EDUNIT# 20:07 → ER 20:08
DX: F41.0 Panic disorder [episodic paroxysmal anxiety] (principal); J45.909 Unspecified asthma, uncomplicated; F43.10 Post-traumatic stress disorder, unspecified; F31.9 Bipolar disorder, unspecified; F17.210 Nicotine dependence, cigarettes, uncomplicated; Z90.49 Acquired absence of other specified parts of digestive tract; Z87.42 Personal history of other diseases of the female genital tract; Z87.19 Personal history of other diseases of the digestive system; Z87.81 Personal history of (healed) traumatic fracture; Z88.6 Allergy status to analgesic agent; Z88.8 Allergy status to other drugs, medicaments and biological substances
CPT/HCPCS: 80306; 81000; 99282

== ENCOUNTER 2018-05-03 19:19 | Observation (INO) | payer MEDICAID ==
[~2018-05-03] VITALS: Ht 157.5 cm; Wt 50.5 kg
--- NOTE | 2018-05-03 19:40 | ED Neurological Problem ---
General Chief Complaint: Altered Mental Status Stated Complaint: AMS Nursing Triage Note: PT BROUGHT IN BY EMS AFTER FOUND WANDERING IN ALLEY AND SOMEONES YARD. Nursing Sepsis Screen: No Definite Risk Source: patient Exam Limitations: clinical condition History of Present Illness Date Seen by Provider: May 03, 2018 Time Seen by Provider: 19:18 Initial Comments Patient presents to the ER by EMS after a neighbor called them because she was found wandering through the neighborhood. She was not answering questions appropriately had a blood sugar 104 and was given an IV but no further and interventions. She is not been combative according to EMS. They said her pupils were pinpoint bilaterally when they found her. The patient states that she's got a broken heart but cannot give any other meaningful history other than to say she's not having any pain or nausea. She does not know what was going on today. Allergies and Home Medications Allergies Coded Allergies: bupropion (Verified Allergy, Mild, H/A, 04/14/18) prazosin (Verified Allergy, Mild, SYNCOPE, 04/14/18) sertraline (Verified Allergy, Mild, H/A, 04/14/18) Home Medications Acetaminophen 500 Mg Tablet, 1,000 MG PO TID, (Reported) Acetaminophen 500 Mg Tablet, 1,000 MG PO Q8H PRN for PAIN-MILD TO MODERATE Prescribed by: ARLEEN GATICA on 04/23/182015 Albuterol Sulfate 1 Puff Puff, 2 PUFF IH Q4H PRN for SHORTNESS OF BREATH, ( Reported) 1 PUFF = 90 MCG Amoxicillin/Potassium Clav 1 Each Tablet, 1 EACH PO BID Prescribed by: NY DUONG on 04/18/182124 Fluticasone Propionate 9.9 Ml [place].susp, 2 SPRAYS NS BID Prescribed by: NY DUONG on 04/18/182124 Gabapentin 600 Mg Tablet, 600 MG PO TID PRN for PAIN, (Reported) Loratadine/Pseudoephedrine 1 Each Tab.er.12h, 1 EACH PO BID Prescribed by: NY DUONG on 04/18/182124 Methylprednisolone 4 Mg Tab.ds.pk, 4 MG PO UD Prescribed by: NY DUONG on 04/18/182124 Ondansetron 4 Mg Tab.rapdis, 4 MG PO Q6H PRN for NAUSEA/VOMITING Prescribed by: ARLEEN GATICA on 04/23/182008 Tramadol HCl 50 Mg Tablet, 50 MG PO Q6H PRN for PAIN Prescribed by: ARLEEN GATICA on 04/23/182008 Patient Home Medication List Home Medication List Reviewed: Yes Review of Systems Constitutional: see HPI (Limited review of systems secondary to patient's clinical condition.) Eyes: Denies Blindness, Denies Photophobia Ears, Nose, Mouth, Throat: denies ear pain, denies mouth pain Respiratory: No cough, No short of breath Cardiovascular: No chest pain Gastrointestinal: No abdominal pain, No nausea Past Gkzfaok-Fatrkz-Fstlig Hx Patient Social History Alcohol Use: Occasionally Uses Number of Drinks Today: AA Alcohol Beverage of Choice: Beer Recreational Drug Use: Yes Drug of Choice: THC, + IV CRACK COCAINE, OPIODS Smoking Status: Current Everyday Smoker Type Used: Cigarettes 2nd Hand Smoke Exposure: Yes Recent Foreign Travel: No Contact w/Someone Who Travel: No Recent Infectious Disease Expo: No Recent Hopitalizations: No Immunizations Up To Date Tetanus Booster (TDap): Less than 5yrs Date of Influenza Vaccine: Dec 09, 2013 Seasonal Allergies Seasonal Allergies: Yes Past Medical History Surgeries: Yes (colonoscopy) Appendectomy Respiratory: Yes Asthma Cardiac: Yes Irregular Heartbeat, Palpitations Neurological: Yes Neuropathy Reproductive Disorders: Yes Female Reproductive Disorders: Ovarian Cyst Sexually Transmitted Disease: No HIV/AIDS: No Genitourinary: No Gastrointestinal: Yes (HEPATITIS C--S/P TREATMENT) Chronic Diarrhea, Hepatitis, Polyps Musculoskeletal: Yes (CARPAL TUNNEL SYMPTOMS) Arthritis, Chronic Back Pain Endocrine: No HEENT: Yes (POOR DENTITION, NASAL FRACTURE) Loss of Vision: Bilateral Hearing Impairment: Denies Cancer: No Psychosocial: Yes (SUBSTANCE ABUSE-ETOH (NOTHING IN 2YRS)) Anxiety, PTSD, Depression Integumentary: No Blood Disorders: No Adverse Reaction/Blood Tranf: No (N/A) Family Medical History Cancer 03 FATHER (LUNG) Family history: Cardiovascular disease 03 MOTHER (X4 STENTS) Physical Exam Vital Signs Vital Signs - First Documented 05/03/18 19:20 Pulse 95 Resp 20 B/P (MAP) 122/77 (92) Pulse Ox 96 O2 Delivery Room Air Capillary Refill : Less Than 3 Seconds General Appearance: WD/WN, no apparent distress HEENT: PERRL/EOMI, normal ENT inspection, TMs normal, pharynx normal ( Oropharynx is dry) Neck: non-tender, full range of motion, supple, normal inspection Respiratory: chest non-tender, lungs clear, normal breath sounds, no respiratory distress, no accessory muscle use Cardiovascular: normal peripheral pulses, regular rate, rhythm, no edema Peripheral Pulses: 2+ Dorsalis Pedis (R), 2+ Left Dors-Pedis (L), 2+ Radial Pulses (R), 2+ Radial Pulses (L) Gastrointestinal: normal bowel sounds, non tender, soft Extremities: non-tender, normal inspection, normal capillary refill Neurologic/Psychiatric: alert, other (Oriented times person and place but not time or situation) Crainal Nerves: normal hearing, normal speech, PERRL Motor/Sensory: no motor deficit, no sensory deficit Skin: other (Old wounds from what looks like a fall on her right hand dressed with Band-Aid) Progress/Results/Core Measures Results/Orders Lab Results Laboratory Tests Test 05/03/18 19:39 05/03/18 19:48 Range/Units White Blood Count 12.4 H 4.3-11.0 10^3/uL Red Blood Count 4.45 4.35-5.85 10^6/uL Hemoglobin 14.6 11.5-16.0 G/DL Hematocrit 40 35-52 % Mean Corpuscular Volume 90 80-99 FL Mean Corpuscular Hemoglobin 33 25-34 PG Mean Corpuscular Hemoglobin Concent 37 H 32-36 G/DL Red Cell Distribution Width 13.2 10.0-14.5 % Platelet Count 299 130-400 10^3/uL Mean Platelet Volume 10.1 7.4-10.4 FL Neutrophils (%) (Auto) 66 42-75 % Lymphocytes (%) (Auto) 25 12-44 % Monocytes (%) (Auto) 9 0-12 % Eosinophils (%) (Auto) 0 0-10 % Basophils (%) (Auto) 0 0-10 % Neutrophils # (Auto) 8.1 H 1.8-7.8 X 10^3 Lymphocytes # (Auto) 3.1 1.0-4.0 X 10^3 Monocytes # (Auto) 1.1 H 0.0-1.0 X 10^3 Eosinophils # (Auto) 0.0 0.0-0.3 10^3/uL Basophils # (Auto) 0.0 0.0-0.1 10^3/uL Sodium Level 140 135-145 MMOL/L Potassium Level 3.4 L 3.6-5.0 MMOL/L Chloride Level 105 98-107 MMOL/L Carbon Dioxide Level 21 21-32 MMOL/L Anion Gap 14 5-14 MMOL/L Blood Urea Nitrogen 7 7-18 MG/DL Creatinine 0.83 0.60-1.30 MG/DL Estimat Glomerular Filtration Rate > 60 BUN/Creatinine Ratio 8 Glucose Level 96 70-105 MG/DL Calcium Level 9.7 8.5-10.1 MG/DL Total Bilirubin 0.9 0.1-1.0 MG/DL Aspartate Amino Transf (AST/SGOT) 17 5-34 U/L Alanine Aminotransferase (ALT/SGPT) 13 0-55 U/L Alkaline Phosphatase 64 40-136 U/L Total Protein 6.8 6.4-8.2 GM/DL Albumin 4.3 3.2-4.5 GM/DL TSH [place] Testing 1.04 0.35-4.94 UIU/ML Salicylates Level < 5.0 L 5.0-20.0 MG/DL Acetaminophen Level < 10 L 10-30 UG/ML Serum Alcohol < 10 <10 MG/DL Urine Color TOMI H Urine Clarity CLEAR Urine pH 5 5-9 Urine Specific [place] 1.025 H 1.016-1.022 Urine Protein 2+ H NEGATIVE Urine Glucose (UA) NEGATIVE NEGATIVE Urine Ketones 1+ H NEGATIVE Urine Nitrite POSITIVE H NEGATIVE Urine Bilirubin 2+ H NEGATIVE Urine Urobilinogen 4 H NORMAL MG/DL Urine Leukocyte Esterase 2+ H NEGATIVE Urine RBC (Auto) 1+ H NEGATIVE Urine RBC RARE /HPF Urine WBC 10-25 H /HPF Urine Squamous Epithelial Cells 10-25 H /HPF Urine Crystals NONE /LPF Urine Bacteria FEW H /HPF Urine Casts NONE /LPF Urine Mucus LARGE H /LPF Urine Culture Indicated YES Urine Test NEGATIVE NEGATIVE Urine Opiates Screen NEGATIVE NEGATIVE Urine Oxycodone Screen NEGATIVE NEGATIVE Urine Methadone Screen NEGATIVE NEGATIVE Urine Propoxyphene Screen NEGATIVE NEGATIVE Urine Barbiturates Screen NEGATIVE NEGATIVE Ur Tricyclic Antidepressants Screen NEGATIVE NEGATIVE Urine Phencyclidine Screen NEGATIVE NEGATIVE Urine Amphetamines Screen NEGATIVE NEGATIVE Urine Methamphetamines Screen NEGATIVE NEGATIVE Urine Benzodiazepines Screen NEGATIVE NEGATIVE Urine Cocaine Screen NEGATIVE NEGATIVE Urine Cannabinoids Screen POSITIVE H NEGATIVE My Orders Orders - GAVI,ARLEEN J Ua Culture If Indicated (05/03/18 19:31) Cbc With Automated Diff (05/03/18 19:31) Comprehensive Metabolic Panel (05/03/18:31) Alcohol (05/03/18:31) Drug Screen Stat (Urine) (05/03/18:31) Acetaminophen (05/03/18 19:31) Salicylate (05/03/18 19:31) Hcg,Qualitative Urine (05/03/18:) Saline Lock/Iv-Start (05/03/18:31) Thyroid Analyzer (05/03/18:31) Monitor-Rhythm Ecg Trace Only (05/03/18 19:31) Ct Head Wo (05/03/18:31) Urine Culture (05/03/18 19:48) Ceftriaxone Injection (Rocephin Injectio (05/03/18 20:30) Lorazepam Injection (Ativan Injection) (05/03/18 21:15) Medications Given in ED Current Medications Medications Dose Ordered Sig/Piter Route Start Time Stop Time Status Last Admin Dose Admin Ceftriaxone Sodium 1000 mg/ Sodium Chloride 50 ml @ 100 mls/hr ONCE ONCE IV 05/03/18 20:30 05/03/18 20:59 DC 05/03/18 20:46 100 MLS/HR Lorazepam 1 mg ONCE ONCE IVP 05/03/18 21:15 05/03/18 21:16 DC 05/03/18 21:17 1 MG Vital Signs/I&O 05/03/18 19:20 Pulse 95 Resp 20 B/P (MAP) 122/77 (92) Pulse Ox 96 O2 Delivery Room Air Blood Pressure Mean: 92 Progress Progress Note #1: Time: 19:38 Progress Note Patient was seen in this ER 2 days ago with a chief complaint she was feeling high. She went AMA before any interventions could be obtained. Old history does reveal that she uses THC, cocaine, opiates. She's not terribly agitated and can be redirected but she is pulling all of her leads off as well as her blood pressure and sat monitor. Her vitals are good at present. Pupils are 3 mm and reactive bilateral, symmetric. Strongly suspect that she is under the influence of substances but she is not able to give history of what she might of taken today or yesterday. We'll obtain urine by first trying to get her to a commode. This will also allow us to see if she can walk. We'll obtain a CT of her head although externally she looks atraumatic. Other than the few old superficial skin wounds on her right hand there is no significant evidence of trauma anywhere on her body. Progress Note #2: Time: 21:33 Progress Note labs and imaging make this more delirium secondary to UTI that is possibly confounded by THC use and underlying PTSD/other psychiatric issues. I have spoke with the Shar Csatellano at [phone] during workup and get some history as well as after the workup completed and he agrees with admitting her overnight. He plans to come in in the morning. Diagnostic Imaging Diagonstic Imaging: CT Plain Films/CT/US/NM/MRI: head (Without contrast) Comments No acute calvarial fracture, no acute intracranial hemorrhage, mass effect, midline shift or tumor. Reviewed: Reviewed by Me Departure Communication (Admissions) Time/Spoke to Admitting Phy: 21:25 Dr. Young: Discussed labs imaging findings and plan for Rocephin and fluids. Consult healthcare advisory services manager in the morning. Impression Primary Impression: Urinary tract infection Qualified Codes: N30.00 - Acute cystitis without hematuria Additional Impressions: Acute delirium Tetrahydrocannabinol (THC) use disorder, mild, abuse Disposition: ADMITTED INPATIENT Condition: Stable Admissions Decision to Admit Reason: Admit from ER (General) Decision to Admit/Date: May 03, 2018 Time/Decision to Admit Time: 21:38 Departure-Patient Inst. Referrals: ABBY BENAVIDES MD (PCP/Family) Primary Care Physician Copy Copies To 1: OMAR CHAVEZ TITUS J May 03, 2018 19:40
[2018-05-03 19:59] LABS: BASOPHILS % (AUTO) 0 % (0-10); EOSINOPHILS % (AUTO) 0 % (0-10); HEMATOCRIT 40 % (35-52); HEMOGLOBIN 14.6 G/DL (11.5-16.0); LYMPHOCYTES # (AUTO) 3.1 X 10^3 (1.0-4.0); LYMPHOCYTES % (AUTO) 25 % (12-44); MEAN CORPUSCULAR HEMOGLOBIN 33 PG (25-34); MEAN CORPUSCULAR HGB CONC 37 G/DL (32-36); MEAN CORPUSCULAR VOLUME 90 FL (80-99); MEAN PLATELET VOLUME 10.1 FL (7.4-10.4); MONOCYTES # (AUTO) 1.1 X 10^3 (0.0-1.0); MONOCYTES % (AUTO) 9 % (0-12); NEUTROPHILS # (AUTO) 8.1 X 10^3 (1.8-7.8); NEUTROPHILS % (AUTO) 66 % (42-75); PLATELET COUNT 299 10^3/uL (130-400); RED BLOOD COUNT 4.45 10^6/uL (4.35-5.85); RED CELL DISTRIBUTION WIDTH 13.2 % (10.0-14.5); WHITE BLOOD COUNT 12.4 10^3/uL (4.3-11.0)
[2018-05-03 20:00] LABS: HCG,QUALITATIVE URINE NEGATIVE (NEGATIVE)
[2018-05-03 20:01] LABS: CLARITY,URINE CLEAR; COLOR,URINE AMBER; GLUCOSE, URINE (UA) NEGATIVE (NEGATIVE); KETONES,URINE 1+ (NEGATIVE); LEUKOCYTE ESTERASE ,URINE 2+ (NEGATIVE); NITRITE,URINE POSITIVE (NEGATIVE); PH,URINE 5 (5-9); PROTEIN,URINE 2+ (NEGATIVE); UROBILINOGEN,URINE 4 MG/DL (NORMAL)
[2018-05-03 20:09] LABS: AMPHETAMINE SCREEN, URINE NEGATIVE (NEGATIVE); BARBITURATE SCREEN URINE NEGATIVE (NEGATIVE); BENZODIAZEPINES SCREEN URINE NEGATIVE (NEGATIVE); CANNABINOID SCREEN, URINE POSITIVE (NEGATIVE); COCAINE SCREEN URINE NEGATIVE (NEGATIVE); METHADONE STAT NEGATIVE (NEGATIVE); METHAMPHETAMINE SCREEN URINE S NEGATIVE (NEGATIVE); OPIATE SCREEN URINE NEGATIVE (NEGATIVE); OXYCODONE STAT NEGATIVE (NEGATIVE); PROPOXYPHENE STAT NEGATIVE (NEGATIVE); TRICYCLIC ANTIDEPRESSANTS SCRE NEGATIVE (NEGATIVE)
[2018-05-03 20:12] LABS: ALANINE AMINOTRANSFERASE 13 U/L (0-55); ALBUMIN 4.3 GM/DL (3.2-4.5); ALKALINE PHOSPHATASE 64 U/L (40-136); BILIRUBIN,TOTAL 0.9 MG/DL (0.1-1.0); BUN/CREATININE RATIO 8; CALCIUM 9.7 MG/DL (8.5-10.1); CARBON DIOXIDE 21 MMOL/L (21-32); CHLORIDE 105 MMOL/L (98-107); CREATININE SERUM 0.83 MG/DL (0.60-1.30); GFR ESTIMATED > 60; GLUCOSE 96 MG/DL (70-105); POTASSIUM 3.4 MMOL/L (3.6-5.0); SALICYLATE < 5.0 MG/DL (5.0-20.0); SODIUM 140 MMOL/L (135-145); TOTAL PROTEIN 6.8 GM/DL (6.4-8.2)
[2018-05-03 20:13] LABS: ACETAMINOPHEN < 10 UG/ML (10-30)
[2018-05-03 20:15] LABS: BILIRUBIN,URINE 2+ (NEGATIVE)
[2018-05-03 20:16] LABS: BACTERIA,URINE FEW /HPF; RBC,URINE RARE /HPF
[2018-05-03] MEDS ORDERED: cefTRIAXone INJECTION 1,000 MG in NS (IVPB) 50 ML IV ONE (20:30)
[2018-05-03] MEDS ORDERED: LORazepam INJ 2 MG/ML (ATIVAN) VIAL IVP ONE (21:15)
--- NOTE | 2018-05-03 21:27 | Diagnostic Imaging Report ---
PROCEDURE: CT head without contrast. TECHNIQUE: Multiple contiguous axial images were obtained through the brain without the use of intravenous contrast. INDICATION: Altered mental status. Confusion. COMPARISON with 11/17/2016 CT head. FINDINGS: Noncontrasted images show mild cortical atrophy. The ventricles are not dilated. There is no intracranial hemorrhage. There is no mass effect. No extra-axial fluid collection. The basal cisterns are clear. The mastoid air cells and paranasal sinuses are well-aerated where visualized. There are no calvarial fractures. IMPRESSION: Mild cortical atrophy. There does appear to have been slight progression in atrophic changes when compared with previous exam. No acute intracranial abnormalities demonstrated. Dictated by: Dictated on workstation # [id number]
[2018-05-03] MEDS ORDERED: ONDANSETRON 4 MG/2 ML (SDV) Z0FRAN IV PRN (23:30)
[2018-05-03] MEDS ORDERED: ACETAMINOPHEN 325 MG TABLET/CAPLET (TYLENOL) PO PRN (23:30)
[2018-05-03] MEDS ORDERED: IBUPROFEN 800 MG (MOTRIN) TAB PO PRN (23:30)
[2018-05-03] MEDS ORDERED: LORazepam INJ 2 MG/ML (ATIVAN) VIAL IV PRN (23:30)
[2018-05-04] VITALS: BP 117/74
[2018-05-04] MEDS: 1/2 NS W/KCL 20 MEQ/L 1,000 ML IV SCH ×2 (00:21→06:55)
[2018-05-04 04:00] VITALS: BP 121/59
[2018-05-04 08:27] LABS: BASOPHILS % (AUTO) 0 % (0-10); EOSINOPHILS % (AUTO) 0 % (0-10); HEMATOCRIT 42 % (35-52); HEMOGLOBIN 14.4 G/DL (11.5-16.0); LYMPHOCYTES # (AUTO) 3.8 X 10^3 (1.0-4.0); LYMPHOCYTES % (AUTO) 37 % (12-44); MEAN CORPUSCULAR HEMOGLOBIN 32 PG (25-34); MEAN CORPUSCULAR HGB CONC 35 G/DL (32-36); MEAN CORPUSCULAR VOLUME 91 FL (80-99); MEAN PLATELET VOLUME 9.7 FL (7.4-10.4); MONOCYTES # (AUTO) 0.9 X 10^3 (0.0-1.0); MONOCYTES % (AUTO) 8 % (0-12); NEUTROPHILS # (AUTO) 5.5 X 10^3 (1.8-7.8); NEUTROPHILS % (AUTO) 54 % (42-75); PLATELET COUNT 330 10^3/uL (130-400); RED BLOOD COUNT 4.54 10^6/uL (4.35-5.85); RED CELL DISTRIBUTION WIDTH 13.7 % (10.0-14.5); WHITE BLOOD COUNT 10.2 10^3/uL (4.3-11.0)
[2018-05-04 08:48] VITALS: BP 108/62
[2018-05-04 08:49] LABS: BUN/CREATININE RATIO 11; CALCIUM 8.8 MG/DL (8.5-10.1); CARBON DIOXIDE 20 MMOL/L (21-32); CHLORIDE 105 MMOL/L (98-107); CREATININE SERUM 0.73 MG/DL (0.60-1.30); GFR ESTIMATED > 60; GLUCOSE 88 MG/DL (70-105); SODIUM 137 MMOL/L (135-145)
--- NOTE | 2018-05-04 10:40 | Short Stay Summary ---
History of Present Illness History of Present Illness Reason for visit/HPI 47 yo F that presented to ER for the second time this week for altered mental status and UTI symptoms. states that she has been acting different the last few days. He states that the symptoms have been going on for a few days now. She has had increased urination and pain with urination. Denies any fever or chills. No abdominal or back pain. Has h/o UTI's. Denies any new medications or drug use. Date of Admission May 03, 2018 at 22:28 Date of Discharge 05/04/2018 Time Seen by Provider: 10:25 Attending Physician Ayush Smith MD Admitting Physician Abby Benavides MD Consult Allergies and Home Medications Allergies Coded Allergies: bupropion (Verified Allergy, Mild, H/A, 04/14/18) prazosin (Verified Allergy, Mild, SYNCOPE, 04/14/18) sertraline (Verified Allergy, Mild, H/A, 04/14/18) Home Medications Acetaminophen 500 Mg Tablet, 1,000 MG PO Q8H PRN for PAIN-MILD TO MODERATE Prescribed by: ARLEEN GATICA on 04/23/182015 Albuterol Sulfate 1 Puff Puff, 2 PUFF IH Q4H PRN for SHORTNESS OF BREATH, ( Reported) 1 PUFF = 90 MCG Fluconazole 150 Mg Tablet, 150 MG PO q72hr Prescribed by: AYUSH SMITH on 05/04/18 104 Fluticasone Propionate 9.9 Ml [place].susp, 2 SPRAYS NS BID Prescribed by: NY DUONG on 04/18/182124 Gabapentin 600 Mg Tablet, 600 MG PO TID PRN for PAIN, (Reported) Loratadine/Pseudoephedrine 1 Each Tab.er.12h, 1 EACH PO BID Prescribed by: [place] DUONG on 04/18/182124 Nitrofurantoin Macrocrystal 100 Mg Capsule, 100 MG PO BID Prescribed by: AYUSH SMITH on 05/04/18 104 Ondansetron 4 Mg Tab.rapdis, 4 MG PO Q6H PRN for NAUSEA/VOMITING Prescribed by: ARLEEN GATICA on 04/23/182008 Tramadol HCl 50 Mg Tablet, 50 MG PO Q6H PRN for PAIN Prescribed by: ARLENE GATICA on 04/23/182008 Patient Home Medication List Home Medication List Reviewed: Yes Past Dzximna-Kmngvw-Dtrhvv Hx Patient Social History Living Status: Lives in home with Alcohol Use: Past History Number of Drinks Today: AA Alcohol Beverage of Choice: Beer Recreational Drug Use: Yes Drug of Choice: THC, + IV CRACK COCAINE, OPIODS Smoking Status: Current Everyday Smoker Type Used: Cigarettes 2nd Hand Smoke Exposure: Yes Recent Foreign Travel: No Contact w/other who traveled: No Recent Hopitalizations: No Recent Infectious Disease Expo: No Immunizations Up To Date Tetanus Booster (TDap): Less than 5yrs Date of Influenza Vaccine: Dec 09, 2013 Seasonal Allergies Seasonal Allergies: Yes Surgeries Yes (colonoscopy) Appendectomy Respiratory Yes Cardiovascular Yes Irregular Heartbeat, Palpitations Neurological Yes Neuropathy Reproductive System : No Hx Reproductive Disorders: Yes Sexually Transmitted Disease: No HIV/AIDS: No Female Reproductive Disorders: Ovarian Cyst Genitourinary No Gastrointestinal Yes (HEPATITIS C--S/P TREATMENT) Liver Disease/Jaundice Musculoskeletal Yes (CARPAL TUNNEL SYMPTOMS) Arthritis, Chronic Back Pain Endocrine History of Endocrine Disorders: No HEENT History of HEENT Disorders: Yes (POOR DENTITION, NASAL FRACTURE) Loss of Vision: Bilateral Hearing Impairment: Denies Cancer No Psychosocial History of Psychiatric Problem: Yes Behavioral Health Disorders: Anxiety, PTSD, Depression Integumentary History of Skin or Integumenta: No Blood Transfusions History of Blood Disorders: No Adverse Reaction to a Blood Tr: No (N/A) Family Medical History Family Hx: Cancer 03 FATHER (LUNG) Family history: Cardiovascular disease 03 MOTHER (X4 STENTS) Constitutional: No chills, No dizziness, No fever; malaise EENTM: no symptoms reported; No blurred vision, No double vision, No mouth pain , No mouth swelling, No nose congestion Respiratory: no symptoms reported; No cough, No dyspnea on exertion, No short of breath Cardiovascular: no symptoms reported; No chest pain, No edema, No palpitations Gastrointestinal: No abdominal pain, No constipation, No diarrhea; loss of appetite; No nausea, No vomiting Genitourinary: dysuria, frequency; No hematuria; incontinence : No Musculoskeletal: no symptoms reported; No back pain, No joint pain, No muscle pain Skin: no symptoms reported; No lesions, No rash Psychiatric/Neurological: Anxiety; Denies Headache, Denies Numbness Physical Exam Vital Signs Vital Signs - First Documented 05/03/18 05/04/18 19:20 00:00 Temp 97.8 Pulse 95 Resp 20 B/P (MAP) 122/77 (92) Pulse Ox 96 O2 Delivery Room Air Capillary Refill : Less Than 3 Seconds General Appearance: No Apparent Distress, WD/WN, Thin HEENT: PERRL/EOMI Neck: Full Range of Motion, Normal Inspection, Non Tender, Supple Respiratory: Lungs Clear, Normal Breath Sounds, No Accessory Muscle Use, No Respiratory Distress Cardiovascular: Regular Rate, Rhythm, No Edema, No Murmur, Normal Peripheral Pulses Gastrointestinal: Normal Bowel Sounds, No Organomegaly, Non Tender, Soft Back: No CVA Tenderness, No Vertebral Tenderness Extremity: Normal Range of Motion, Non Tender, No Calf Tenderness, No Pedal Edema Neurologic/Psychiatric: Alert, Oriented x3, No Motor/Sensory Deficits, Normal Mood/Affect, ornament setter II-XII Norm as Tested, Other (+ anxiety and asking to get discharged or she wants to leave AMA) Skin: Normal Color, Warm/Dry Lymphatic: No Adenopathy Clinical Quality Measures DVT/VTE Risk/Contraindication: Risk Factor Score Per Nursin RFS Level Per Nursing on Admit: 2=Moderate Short Stay Diagnosis Discharge Diagnosis-Short Stay Admission Diagnosis: Altered Mental Status UTI Hypokalemia MJ use Final Discharge Diagnosis: See Above Conclusion Labs Laboratory Tests 05/03/18 19:39: White Blood Count 12.4H, Red Blood Count 4.45, Hemoglobin 14.6, Hematocrit 40, Mean Corpuscular Volume 90, Mean Corpuscular Hemoglobin 33, Mean Corpuscular Hemoglobin Concent 37H, Red Cell Distribution Width 13.2, Platelet Count 299, Mean Platelet Volume 10.1, Neutrophils (%) (Auto) 66, Lymphocytes (%) (Auto) 25 , Monocytes (%) (Auto) 9, Eosinophils (%) (Auto) 0, Basophils (%) (Auto) 0, Neutrophils # (Auto) 8.1H, Lymphocytes # (Auto) 3.1, Monocytes # (Auto) 1.1H, Eosinophils # (Auto) 0.0, Basophils # (Auto) 0.0, Sodium Level 140, Potassium Level 3.4L, Chloride Level 105, Carbon Dioxide Level 21, Anion Gap 14, Blood Urea Nitrogen 7, Creatinine 0.83, Estimat Glomerular Filtration Rate > 60, BUN/ Creatinine Ratio 8, Glucose Level 96, Calcium Level 9.7, Total Bilirubin 0.9, Aspartate Amino Transf (AST/SGOT) 17, Alanine Aminotransferase (ALT/SGPT) 13, Alkaline Phosphatase 64, Total Protein 6.8, Albumin 4.3, TSH [place] Testing 1.04, Salicylates Level < 5.0L, Acetaminophen Level < 10L, Serum Alcohol < 10 05/03/18 19:48: Urine Color AMBERH, Urine Clarity CLEAR, Urine pH 5, Urine Specific [place] 1.025H, Urine Protein 2+H, Urine Glucose (UA) NEGATIVE, Urine Ketones 1+H, Urine Nitrite POSITIVEH, Urine Bilirubin 2+H, Urine Urobilinogen 4H, Urine Leukocyte Esterase 2+H, Urine RBC (Auto) 1+H, Urine RBC RARE, Urine WBC 10-25H, Urine Squamous Epithelial Cells 10-25H, Urine Crystals NONE, Urine Bacteria FEWH , Urine Casts NONE, Urine Mucus LARGEH, Urine Culture Indicated YES, Urine Test NEGATIVE, Urine Opiates Screen NEGATIVE, Urine Oxycodone Screen NEGATIVE, Urine Methadone Screen NEGATIVE, Urine Propoxyphene Screen NEGATIVE, Urine Barbiturates Screen NEGATIVE, Ur Tricyclic Antidepressants Screen NEGATIVE , Urine Phencyclidine Screen NEGATIVE, Urine Amphetamines Screen NEGATIVE, Urine Methamphetamines Screen NEGATIVE, Urine Benzodiazepines Screen NEGATIVE, Urine Cocaine Screen NEGATIVE, Urine Cannabinoids Screen POSITIVEH 05/04/18 08:20: White Blood Count 10.2, Red Blood Count 4.54, Hemoglobin 14.4, Hematocrit 42, Mean Corpuscular Volume 91, Mean Corpuscular Hemoglobin 32, Mean Corpuscular Hemoglobin Concent 35, Red Cell Distribution Width 13.7, Platelet Count 330, Mean Platelet Volume 9.7, Neutrophils (%) (Auto) 54, Lymphocytes (%) (Auto) 37, Monocytes (%) (Auto) 8, Eosinophils (%) (Auto) 0, Basophils (%) (Auto) 0, Neutrophils # (Auto) 5.5, Lymphocytes # (Auto) 3.8, Monocytes # (Auto) 0.9, Eosinophils # (Auto) 0.0, Basophils # (Auto) 0.0, Sodium Level 137, Potassium Level 4.0, Chloride Level 105, Carbon Dioxide Level 20L, Anion Gap 12, Blood Urea Nitrogen 8, Creatinine 0.73, Estimat Glomerular Filtration Rate > 60, BUN/ Creatinine Ratio 11, Glucose Level 88, Calcium Level 8.8 Microbiology 05/03/18 Urine Culture - Preliminary, Resulted [facility] Conclusion/Plan 47 yo F with Confusion found to have UTI Altered Mental status: Resolved in AM. states that patient is at her baseline this AM. UTI: Patient hydrated with IVFs and given 2 doses of IV antibiotics. Will continue PO antibiotics to treat UTIs. HDS Hypokalemia: Replaced and Resolved Patient was discharged home with continued antibiotic treatment and close followup with PCP Copy Copies To 1: ABBY BENAVIDES MD, HOLLY R MD May 04, 2018 10:39
[2018-05-04] MEDS ORDERED: FLUC150T2 PO (10:47)
[2018-05-04] MEDS ORDERED: NITR100C PO (10:47)
--- NOTE | 2018-05-04 10:52 | Discharge Instructions ---
Discharge [facility] Discharge Medications New, Converted or Re-Newed RX: Transmitted to Pharmacy New Medications: Fluconazole (Fluconazole) 150 Mg Tablet 150 MG PO q72hr, #2 TAB Nitrofurantoin Macrocrystal (Nitrofurantoin) 100 Mg Capsule 100 MG PO BID for 7 Days, #14 CAP Continued Medications: Acetaminophen (Tylenol Extra Strength) 500 Mg Tablet 1000 MG PO Q8H PRN for PAIN-MILD TO MODERATE for 30 Days, #60 TAB 0 Refills Albuterol Sulfate (Proair Hfa) 1 Puff Puff 2 PUFF IH Q4H PRN for SHORTNESS OF BREATH, PUFF 1 PUFF = 90 MCG Fluticasone Propionate (Flonase Allergy Relief) 9.9 Ml [place].susp 2 SPRAYS NS BID, #1 SPRAY Gabapentin (Gabapentin) 600 Mg Tablet 600 MG PO TID PRN for PAIN, #90 Loratadine/Pseudoephedrine (Claritin-D 12 Hour Tablet) 1 Each Tab.er.12h 1 EACH PO BID, #20 TAB Ondansetron (Ondansetron Odt) 4 Mg Tab.rapdis 4 MG PO Q6H PRN for NAUSEA/VOMITING, #8 TAB 0 Refills Tramadol HCl (Tramadol HCl) 50 Mg Tablet 50 MG PO Q6H PRN for PAIN, #20 TAB 0 Refills Discontinued Medications: Acetaminophen (Tylenol Extra Strength) 500 Mg Tablet 1000 MG PO TID, TAB Amoxicillin/Potassium Clav (Augmentin 875-125 Tablet) 1 Each Tablet 1 EACH PO BID for INFECTION, #20 TAB Methylprednisolone (Medrol) 4 Mg Tab.ds.pk 4 MG PO UD, #1 PKG Patient Instructions Goal/Follow Up Appt: You have a follow up appt with Dr Benavides ThursdayMay 11 @ 120PM Patient Instructions: - Make sure you complete your antibiotics Activity & Diet Discharge Diet: No Restrictions Activity as Tolerated: Yes Copy Copies To 1: ABBY BENAVIDES MD, HOLLY R MD May 04, 2018 10:52
[2018-05-04] MEDS ORDERED: cefTRIAXone 1 GM/NS 50 ML IVPB IV SCH ×2 (23:00)
== END 2018-05-04 10:49 | disposition home or self-care (01) ==
LOC: EDUNIT# 19:19 → ER 19:20 → 4TH 22:28 → UNDOADMOB 22:28 → 4TH 23:00 → UNDODISOB 05-04 11:39
PROVIDERS: ADMIT Family Medicine; ATTEND Family Medicine
DX: N30.00 Acute cystitis without hematuria (principal); R41.0 Disorientation, unspecified; F41.9 Anxiety disorder, unspecified; F32.9 Major depressive disorder, single episode, unspecified; F43.10 Post-traumatic stress disorder, unspecified; F17.210 Nicotine dependence, cigarettes, uncomplicated; F12.90 Cannabis use, unspecified, uncomplicated
CPT/HCPCS: 36415; 70450; 80048; 80053; 80306; 80320; 80329; 81000; 84443; 84703; 85025; 87088; 93041; 96365; 96375; G0378

== ENCOUNTER → 2019-06-29 | Outpatient (CLI) | payer MEDICAID ==
[~2019-06-29] MED LIST changes: +FLUC150T2 PO; -GABA600T2 PO; +GBPN600T PO; +NITR100C PO
--- NOTE | 2019-06-29 14:58 | Diagnostic Imaging Report ---
INDICATION: Cervicalgia. FINDINGS: Lateral views of the cervical spine are obtained, as well as flexion and extension views in the lateral position. There is no fracture or acute bony abnormality. There is disc space narrowing with osteophyte formation at C5-C6 and C6-C7. There appears to be slight anterolisthesis of C5 on C6 during flexion, suggesting ligamentous laxity. IMPRESSION: Disc space narrowing with osteophyte formation at C5-C6 and C6-C7. There is slight anterolisthesis of C5 on C6 during flexion, suggesting ligamentous laxity. Dictated by: Dictated on workstation # [id number]
== END ==
LOC: RAD 13:20
PROVIDERS: ATTEND Student in an Organized Health Care Education/Training Program
DX: M48.02 Spinal stenosis, cervical region (principal); M25.78 Osteophyte, vertebrae; M43.12 Spondylolisthesis, cervical region
CPT/HCPCS: 72050

== ENCOUNTER → 2019-09-14 | Outpatient (CLI) | payer MEDICAID ==
[2019-09-14 11:26] LABS: BASOPHILS % (AUTO) 0 % (0-10); EOSINOPHILS # (AUTO) 0.1 10^3/uL (0.0-0.3); EOSINOPHILS % (AUTO) 1 % (0-10); HEMATOCRIT 43 % (35-52); HEMOGLOBIN 13.9 G/DL (11.5-16.0); LYMPHOCYTES % (AUTO) 41 % (12-44); MEAN CORPUSCULAR HEMOGLOBIN 30 PG (25-34); MEAN CORPUSCULAR HGB CONC 32 G/DL (32-36); MEAN CORPUSCULAR VOLUME 92 FL (80-99); MEAN PLATELET VOLUME 9.8 FL (7.4-10.4); MONOCYTES # (AUTO) 0.4 X 10^3 (0.0-1.0); MONOCYTES % (AUTO) 6 % (0-12); NEUTROPHILS # (AUTO) 3.8 X 10^3 (1.8-7.8); NEUTROPHILS % (AUTO) 52 % (42-75); PLATELET COUNT 316 10^3/uL (130-400); RED CELL DISTRIBUTION WIDTH 12.9 % (10.0-14.5); WHITE BLOOD COUNT 7.3 10^3/uL (4.3-11.0)
[2019-09-14 11:50] LABS: ALANINE AMINOTRANSFERASE 14 U/L (0-55); ALBUMIN 4.3 GM/DL (3.2-4.5); ALKALINE PHOSPHATASE 73 U/L (40-136); BILIRUBIN,TOTAL 0.4 MG/DL (0.1-1.0); BUN/CREATININE RATIO 9; CALCIUM 9.7 MG/DL (8.5-10.1); CARBON DIOXIDE 27 MMOL/L (21-32); CHLORIDE 107 MMOL/L (98-107); CHOLESTEROL 228 MG/DL (< 200); CREATININE SERUM 0.81 MG/DL (0.60-1.30); GFR ESTIMATED > 60; GLUCOSE 91 MG/DL (70-105); HDL CHOLESTEROL 61 MG/DL (40-60); POTASSIUM 4.5 MMOL/L (3.6-5.0); SODIUM 143 MMOL/L (135-145); TOTAL PROTEIN 6.9 GM/DL (6.4-8.2); TRIGLYCERIDES 82 MG/DL (<150); VLDL CHOLESTEROL 16 MG/DL (5-40)
== END ==
LOC: LAB 11:13
PROVIDERS: ATTEND Family Medicine
DX: Z00.00 Encounter for general adult medical examination without abnormal findings (principal); Z79.899 Other long term (current) drug therapy
CPT/HCPCS: 36415; 80053; 80061; 84443; 85025

== ENCOUNTER → 2020-12-17 | Outpatient (CLI) | payer MEDICAID ==
[~2020-12-17] MED LIST changes: -TRAM50TA2 PO; +TRM50T PO
[2020-12-17 12:53] LABS: BASOPHILS % (AUTO) 0 % (0-10); EOSINOPHILS % (AUTO) 0 % (0-10); HEMATOCRIT 47 % (35-52); HEMOGLOBIN 15.4 g/dL (11.5-16.0); LYMPHOCYTES # (AUTO) 2.8 10^3/uL (1.0-4.0); LYMPHOCYTES % (AUTO) 39 % (12-44); MEAN CORPUSCULAR HEMOGLOBIN 30 pg (25-34); MEAN CORPUSCULAR HGB CONC 33 g/dL (32-36); MEAN CORPUSCULAR VOLUME 90 fL (80-99); MEAN PLATELET VOLUME 10.4 fL (9.0-12.2); MONOCYTES # (AUTO) 0.4 10^3/uL (0.0-1.0); MONOCYTES % (AUTO) 6 % (0-12); NEUTROPHILS # (AUTO) 3.9 10^3/uL (1.8-7.8); NEUTROPHILS % (AUTO) 54 % (42-75); PLATELET COUNT 323 10^3/uL (130-400); WHITE BLOOD COUNT 7.2 10^3/uL (4.3-11.0)
[2020-12-17 13:16] LABS: ALANINE AMINOTRANSFERASE 19 U/L (0-55); ALBUMIN 4.6 GM/DL (3.2-4.5); ALKALINE PHOSPHATASE 93 U/L (40-136); BILIRUBIN,TOTAL 0.6 MG/DL (0.1-1.0); BUN/CREATININE RATIO 12; CALCIUM 9.7 MG/DL (8.5-10.1); CARBON DIOXIDE 24 MMOL/L (21-32); CHLORIDE 103 MMOL/L (98-107); CHOLESTEROL 264 MG/DL (< 200); CREATININE SERUM 0.85 MG/DL (0.60-1.30); GFR ESTIMATED > 60; GLUCOSE 97 MG/DL (70-105); HDL CHOLESTEROL 55 MG/DL (40-60); POTASSIUM 3.5 MMOL/L (3.6-5.0); SODIUM 139 MMOL/L (135-145); TOTAL PROTEIN 7.6 GM/DL (6.4-8.2); TRIGLYCERIDES 91 MG/DL (<150); VLDL CHOLESTEROL 18 MG/DL (5-40)
== END ==
LOC: LAB 12:35
PROVIDERS: ATTEND Family Medicine
DX: Z00.00 Encounter for general adult medical examination without abnormal findings (principal); Z79.899 Other long term (current) drug therapy
CPT/HCPCS: 36415; 80053; 80061; 84443; 85025

== ENCOUNTER → 2020-12-19 | Outpatient (CLI) | payer MEDICAID | LOC: RAD 09:32 | PROVIDERS: ATTEND Family Medicine | DX: Z12.31 Encounter for screening mammogram for malignant neoplasm of breast (principal) | CPT/HCPCS: 77063; 77067 ==

== ENCOUNTER → 2021-03-07 | Outpatient (CLI) | payer MEDICAID ==
--- NOTE | 2021-03-07 17:50 | Diagnostic Imaging Report ---
INDICATION: Hip pain. EXAMINATION: Two views of left hip were obtained. FINDINGS: The alignment is normal. There is no fracture or dislocation. There is no lytic or sclerotic lesion. Soft tissues are unremarkable. IMPRESSION: No focal abnormality in the left hip. Dictated by: Dictated on workstation # [id number]
== END ==
LOC: RAD
PROVIDERS: ATTEND Nurse Practitioner Family
DX: M16.12 Unilateral primary osteoarthritis, left hip (principal)
CPT/HCPCS: 73502